=== PATIENT | female | born 1955 | race Caucasian/White ===

== ENCOUNTER → 2018-04-22 | Outpatient (CLI) | payer OTHER ==
[~2018-04-22] MED LIST: BISO1TAB6 PO; ENAL10TA PO; FISH1CAP15 PO; GLIM2TAB PO; METF-380 PO; SERT50TA PO; SIMV20TA3 PO
--- NOTE | 2018-04-22 16:55 | Diagnostic Imaging Report ---
PROCEDURE: US carotid duplex, bilateral. TECHNIQUE: Multiple real-time grayscale images were obtained over the carotid arteries in various projections, bilaterally. Additional spectral analysis and color Doppler duplex images were also obtained. INDICATION: Dizziness and carotid bruit. FINDINGS: There is mild plaquing at the carotid bifurcations bilaterally. Velocities are normal bilaterally. No velocity elevation or stenosis is seen. Both vertebral arteries demonstrate antegrade flow. IMPRESSION: Mild bilateral carotid plaque. There is no evidence of a hemodynamically significant stenosis. Parameters based on the consensus panel Castro-Scale and Doppler ultrasound criteria published March 2003, Radiology, Volume 229. DOPPLER (peak systolic velocity M/S Right Left CCA .70 .82 ICA Proximal .67 .55 ICA Mid .70 .93 ICA Distal .67 1.20 RATIO 1.0 1.5 ECA 1.00 1.09 VERT .56 1.13 Dictated by: Dictated on workstation # [id number]
== END ==
LOC: RAD 15:28
PROVIDERS: ATTEND Nurse Practitioner Family
DX: H81.09 Meniere's disease, unspecified ear (principal); I65.23 Occlusion and stenosis of bilateral carotid arteries
CPT/HCPCS: 93880

== ENCOUNTER → 2018-10-24 | Outpatient (CLI) | payer OTHER ==
[2018-10-24 15:03] LABS: BASOPHILS # (AUTO) 0.1 10^3/uL (0.0-0.1); BASOPHILS % (AUTO) 1 % (0-10); EOSINOPHILS # (AUTO) 0.4 10^3/uL (0.0-0.3); EOSINOPHILS % (AUTO) 5 % (0-10); HEMATOCRIT 36 % (35-52); HEMOGLOBIN 12.6 G/DL (11.5-16.0); LYMPHOCYTES # (AUTO) 1.9 X 10^3 (1.0-4.0); LYMPHOCYTES % (AUTO) 28 % (12-44); MEAN CORPUSCULAR HEMOGLOBIN 29 PG (25-34); MEAN CORPUSCULAR HGB CONC 35 G/DL (32-36); MEAN CORPUSCULAR VOLUME 82 FL (80-99); MONOCYTES # (AUTO) 0.3 X 10^3 (0.0-1.0); MONOCYTES % (AUTO) 5 % (0-12); NEUTROPHILS # (AUTO) 4.3 X 10^3 (1.8-7.8); NEUTROPHILS % (AUTO) 62 % (42-75); PLATELET COUNT 283 10^3/uL (130-400); RED CELL DISTRIBUTION WIDTH 12.9 % (10.0-14.5); WHITE BLOOD COUNT 6.9 10^3/uL (4.3-11.0)
[2018-10-24 15:19] LABS: ALBUMIN 4.4 GM/DL (3.2-4.5); BILIRUBIN,TOTAL 0.3 MG/DL (0.1-1.0); CALCIUM 9.8 MG/DL (8.5-10.1); CREATININE SERUM 1.07 MG/DL (0.60-1.30); POTASSIUM 4.1 MMOL/L (3.6-5.0); TOTAL PROTEIN 7.3 GM/DL (6.4-8.2)
== END ==
LOC: LAB 14:49
PROVIDERS: ATTEND Surgery
DX: E11.621 Type 2 diabetes mellitus with foot ulcer (principal); E11.42 Type 2 diabetes mellitus with diabetic polyneuropathy; L97.512 Non-pressure chronic ulcer of other part of right foot with fat layer exposed; E11.65 Type 2 diabetes mellitus with hyperglycemia; E78.5 Hyperlipidemia, unspecified; L03.115 Cellulitis of right lower limb
CPT/HCPCS: 36415; 80053; 85025

== ENCOUNTER → 2018-10-24 | Outpatient (CLI) | payer OTHER | LOC: WOUNDCARE 13:16 | PROVIDERS: ATTEND Surgery | DX: E11.621 Type 2 diabetes mellitus with foot ulcer (principal); E11.42 Type 2 diabetes mellitus with diabetic polyneuropathy; E11.65 Type 2 diabetes mellitus with hyperglycemia; E78.5 Hyperlipidemia, unspecified; L03.115 Cellulitis of right lower limb; L97.512 Non-pressure chronic ulcer of other part of right foot with fat layer exposed | CPT/HCPCS: 11042 ==

== ENCOUNTER → 2018-10-29 | Outpatient (CLI) | payer OTHER | LOC: WOUNDCARE 10:25 | PROVIDERS: ATTEND Surgery | DX: E11.621 Type 2 diabetes mellitus with foot ulcer (principal); E11.42 Type 2 diabetes mellitus with diabetic polyneuropathy; E11.65 Type 2 diabetes mellitus with hyperglycemia; E78.5 Hyperlipidemia, unspecified; L03.115 Cellulitis of right lower limb; L97.512 Non-pressure chronic ulcer of other part of right foot with fat layer exposed | CPT/HCPCS: 11042 ==

== ENCOUNTER → 2018-11-05 | Outpatient (CLI) | payer OTHER | LOC: WOUNDCARE 11:55 | PROVIDERS: ATTEND Surgery | DX: E11.621 Type 2 diabetes mellitus with foot ulcer (principal); L97.512 Non-pressure chronic ulcer of other part of right foot with fat layer exposed; E11.42 Type 2 diabetes mellitus with diabetic polyneuropathy; E11.65 Type 2 diabetes mellitus with hyperglycemia | CPT/HCPCS: 99212 ==

== ENCOUNTER 2020-08-29 14:45 | Inpatient (IN) | payer BC, OTHER ==
[~2020-08-29] VITALS: Ht 170.2 cm; Wt 104.6 kg
[2020-08-29] MEDS ORDERED: VANCOMYCIN INJECTION 0.1 MG in NS (IVPB) 250 ML IV SCH (15:00)
[2020-08-29] MEDS ORDERED: morphine INJ 4 MG/ML 1 ML (VIAL/SYRINGE) IVP PRN (15:00)
[2020-08-29] MEDS: NS IV 1000 ML 1,000 ML IV SCH (15:38)
[2020-08-29] MEDS: ENOXAPARIN 40 MG/0.4 ML (LOVENOX) SYR SC SCH (15:38)
[2020-08-29] MEDS ORDERED: CATHETER FLUSH 10 ML SYR IV PRN (15:45)
[2020-08-29 16:00] VITALS: BP 128/58
[2020-08-29 16:08] LABS: POTASSIUM 3.9 MMOL/L (3.6-5.0)
[2020-08-29 16:14] LABS: CREATININE SERUM 1.2 MG/DL (0.60-1.30)
[2020-08-29] MEDS ORDERED: VANCOMYCIN 1,750 MG/NS 500 ML IVPB IV NR ×2 (16:30)
[2020-08-29] MEDS: cefTRIAXone FOR IV USE 2,000 MG in WATER (STERILE) FOR INJECTION 20 ML IV SCH (17:07)
[2020-08-29] MEDS: ACETAMINOPHEN 500 MG TAB (TYLENOL) PO PRN (17:07)
[2020-08-29] MEDS: LACTOBACILLUS ACIDOPHILUS (PROBIOTIC) CAPSULE PO SCH (17:08)
[2020-08-29 17:29] LABS: BASOPHILS # (AUTO) 0.1 10^3/uL (0.0-0.1); BASOPHILS % (AUTO) 1 % (0-10); EOSINOPHILS # (AUTO) 0.2 10^3/uL (0.0-0.3); EOSINOPHILS % (AUTO) 2 % (0-10); HEMATOCRIT 33 % (35-52); HEMOGLOBIN 10.8 g/dL (11.5-16.0); LYMPHOCYTES # (AUTO) 0.9 10^3/uL (1.0-4.0); LYMPHOCYTES % (AUTO) 8 % (12-44); MEAN CORPUSCULAR HEMOGLOBIN 28 pg (25-34); MEAN CORPUSCULAR HGB CONC 33 g/dL (32-36); MEAN CORPUSCULAR VOLUME 85 fL (80-99); MEAN PLATELET VOLUME 10.1 fL (9.0-12.2); MONOCYTES # (AUTO) 0.6 10^3/uL (0.0-1.0); MONOCYTES % (AUTO) 6 % (0-12); NEUTROPHILS # (AUTO) 9.4 10^3/uL (1.8-7.8); NEUTROPHILS % (AUTO) 83 % (42-75); PLATELET COUNT 295 10^3/uL (130-400); WHITE BLOOD COUNT 11.3 10^3/uL (4.3-11.0)
[2020-08-29 17:40] LABS: ALBUMIN 3.8 GM/DL (3.2-4.5); POTASSIUM 3.6 MMOL/L (3.6-5.0)
[2020-08-29 17:41] LABS: CALCIUM 9.6 MG/DL (8.5-10.1)
[2020-08-29 17:42] LABS: TOTAL PROTEIN 7.4 GM/DL (6.4-8.2)
[2020-08-29 17:44] LABS: BILIRUBIN,TOTAL 0.6 MG/DL (0.1-1.0)
[2020-08-29 17:46] LABS: CREATININE SERUM 1.11 MG/DL (0.60-1.30)
[2020-08-29] MEDS: inSUlin ASPART (NovoLOG) 1 UNIT/0.01 ML (CHARGE PER UNIT) SC SCH ×2 (18:17→21:19)
--- NOTE | 2020-08-29 18:40 | Diagnostic Imaging Report ---
INDICATION: Left foot pain AP, oblique, and lateral views of the left foot are obtained. There is no acute fracture. There is extensive soft tissue gas over the lateral portion of the foot, centered over the level of the 5th MTP joint. There is no definite bony erosion. There is plantar and posterior calcaneal spurring. There is degenerative change of the tarsometatarsal joints. IMPRESSION: Extensive soft tissue gas over the lateral portion of the foot centered near the 5th MTP joint. The findings are compatible with cellulitis. I do not see definite bony erosion, MRI may be helpful for further evaluation. There are underlying degenerative findings as above. Dictated by: Dictated on workstation # [id number]
--- NOTE | 2020-08-29 19:00 | Consultation - Surgery ---
History of Present Illness History of Present Illness Patient Consulted On(denisse/time) 08/29/20 18:53 Time Seen by Provider: 17:44 History of Present Illness Surgery asked to consult regarding Left foot ulcer. HPI per IM: PT IS A 65 Y/O FEMALE WHO IS A PATIENT IN MY MEDICAL PRACTICE. SHE WAS SEEN IN CLINIC TODAY FOR A "SORE FOOT" WHICH TURNED OUT TO BE A WOUND ON THE PLANTAR SURFACE OF HER LEFT FOOT THAT HAD "MOVED TO THE TOP" OVER A FEW HOURS. PER PATIENT REPORT, SHE HAD THE WOUND ON HER FOOT "FOR A WHILE" AND THIS MORNING SHE NOTICED A SORE SPOT ON THE TOP OF HER FOOT AND BY THE TIME SHE GOT TO CLINIC IT WAS A LARGE OOZING LESION ON THE TOP OF HER FOOT NEAR THE FIFTH TOE. SHE LATER ADMITTED THAT SHE ALSO HAD A WOUND ON THE TOE ON THE RIGHT FOOT. SHE HAD STOPPED TAKING A LOT OF HER MEDICATIONS SEVERAL MONTHS AGO BECAUSE OF MEDICATION COST AND NOT HAVING INSURANCE. SHE REPORTS A LOT OF FAMILIAL STRESS RECENTLY AND HAVING HEADACHES AND NOT FEELING WELL IN GENERAL. When I spoke to pt she is a 65 yo female sent by Dr. Hernandez to be admitted for new ulcer on Left foot. Pt states it has been there "a while" but supposedly today it came up from the bottom of the foot to the top. Rated the pain as 4-5 out of 10, worse when she walked on it. Allergies and Home Medications Allergies Coded Allergies: No Known Drug Allergies (Unverified , 01/25/12) Home Medications ALPRAZolam 0.25 Mg Tablet, 0.25 MG PO BID PRN for ANXIETY, (Reported) Acetaminophen 500 Mg Tablet, 500-1,000 MG PO Q6H PRN for PAIN-MILD (1-4), (Reported) Bisoprolol Fumarate/Hctz 1 Each Tablet, 1 EA PO DAILY, (Reported) Cetirizine HCl 10 Mg Tablet, 10 MG PO DAILY, (Reported) Enalapril Maleate 10 Mg Tablet, 10 MG PO BID, (Reported) Loratadine 10 Mg Tablet, 10 MG PO DAILY PRN for ALLERGY SYYMPTOMS, (Reported) Meclizine HCl 25 Mg Tablet, 25 MG PO Q8H PRN for DIZZINESS, (Reported) Patient Home Medication List Home Medication List Reviewed: Yes Past Wgzudot-Vzgydt-Vafbdg Hx Patient Social History Smoking Status: Former Smoker Alcohol Use?: Yes Substance type: Marijuana Have you traveled recently?: No Immunizations Up To Date Date of Influenza Vaccine: Feb 18, 2020 Seasonal Allergies Seasonal Allergies: No Surgeries History of Surgeries: Yes Surgeries: Gallbladder, Orthopedic Respiratory History of Respiratory Disorde: Yes Respiratory Disorders: Sleep Apnea Cardiovascular History of Cardiac Disorders: Yes Cardiac Disorders: High Cholesterol, Hypertension Neurological History of Neurological Disord: No Reproductive System : No Genitourinary History of Genitourinary Disor: No Gastrointestinal History of Gastrointestinal Di: Yes Gastrointestinal Disorders: Gall Bladder Disease Musculoskeletal History of Musculoskeletal Dis: No Endocrine History of Endocrine Disorders: Yes Endocrine Disorders: Diabetes, Insulin dep HEENT History of HEENT Disorders: No Loss of Vision: Denies Hearing Impairment: Denies Cancer History of Cancer: No Psychosocial History of Psychiatric Problem: Yes Behavioral Health Disorders: Anxiety, Depression Integumentary History of Skin or Integumenta: No Blood Transfusions History of Blood Disorders: No Family Medical History Significant Family History: Diabetes (denied DM in her parents), GI Disease (Father had Crohn's), Hypertension (both parents), Psychiatric Problems (Sister had Depression and commited suicide) Review of Systems-General Constitutional: No fever, No malaise, No weakness EENTM: No blurred vision, No double vision, No mouth pain, No mouth swelling, No epistaxis Respiratory: No cough, No dyspnea on exertion, No hemoptysis Cardiovascular: No chest pain, No edema, No palpitations Gastrointestinal: No abdominal pain, No nausea, No vomiting Genitourinary: No dysuria, No frequency, No hematuria Musculoskeletal: joint pain, joint swelling, muscle pain, muscle stiffness, muscle weakness Skin: see HPI; No change in color, No change in hair/nails Physical Exam-General Problems Physical Exam Vital Signs Vital Signs - First Documented 08/29/20 08/29/20 15:30 16:00 Temp 36.6 Pulse 70 Resp 18 B/P (MAP) 128/58 (81) Pulse Ox 97 O2 Delivery Room Air Capillary Refill : General Appearance: WD/WN, no apparent distress, obese Eyes: Bilateral Eye PERRL, Bilateral Eye EOMI HEENT: pharynx normal; No scleral icterus (R), No scleral icterus (L) Neck: non-tender, full range of motion, supple Respiratory: lungs clear, normal breath sounds, no respiratory distress, no accessory muscle use Cardiovascular: regular rate, rhythm, no murmur Gastrointestinal: normal bowel sounds, non tender, soft, no organomegaly, no pulsatile mass Back: no CVA tenderness, no vertebral tenderness Extremities: no calf tenderness, normal capillary refill, other (ulcer on top and bottom of left foot) Neurologic/Psychiatric: manager global II-XII nml as tested, alert, normal mood/affect, oriented x 3 Skin: normal color, warm/dry Lymphatic: no adenopathy (neck, axilla or groin) Data Review Labs Laboratory Tests 08/29/20 15:34: Sodium Level 131L, Potassium Level 3.9, Chloride Level 94L, Carbon Dioxide Level 19L, Anion Gap 18H, Blood Urea Nitrogen 17, Creatinine 1.20, Estimat Glomerular Filtration Rate 45, BUN/Creatinine Ratio 14, Glucose Level 371H, Calcium Level 10.0 08/29/20 17:09: Sodium Level 130L, Potassium Level 3.6, Chloride Level 95L, Carbon Dioxide Level 19L, Anion Gap 16H, Blood Urea Nitrogen 18, Creatinine 1.11, Estimat Glomerular Filtration Rate 50, BUN/Creatinine Ratio 16, Glucose Level 356H, Calcium Level 9.6, White Blood Count 11.3H, Red Blood Count 3.90, Hemoglobin 10.8L, Hematocrit 33L, Mean Corpuscular Volume 85, Mean Corpuscular Hemoglobin 28, Mean Corpuscular Hemoglobin Concent 33, Red Cell Distribution Width 13.0, Platelet Count 295, Mean Platelet Volume 10.1, Immature Granulocyte % (Auto) 1, Neutrophils (%) (Auto) 83H, Lymphocytes (%) (Auto) 8L, Monocytes (%) (Auto) 6, Eosinophils (%) (Auto) 2, Basophils (%) (Auto) 1, Neutrophils # (Auto) 9.4H, Lymphocytes # (Auto) 0.9L, Monocytes # (Auto) 0.6, Eosinophils # (Auto) 0.2, Bas ophils # (Auto) 0.1, Immature Granulocyte # (Auto) 0.1, Corrected Calcium 9.8, Total Bilirubin 0.6, Aspartate Amino Transf (AST/SGOT) 7, Alanine Aminotransferase (ALT/SGPT) 9, Alkaline Phosphatase 103, Total Protein 7.4, Albumin 3.8 Radiology Date of Exam:08/29/20 FOOT, LEFT, 3 VIEWS INDICATION: Left foot pain AP, oblique, and lateral views of the left foot are obtained. There is no acute fracture. There is extensive soft tissue gas over the lateral portion of the foot, centered over the level of the 5th MTP joint. There is no definite bony erosion. There is plantar and posterior calcaneal spurring. There is degenerative change of the tarsometatarsal joints. IMPRESSION: Extensive soft tissue gas over the lateral portion of the foot centered near the 5th MTP joint. The findings are compatible with cellulitis. I do not see definite bony erosion, MRI may be helpful for further evaluation. There are underlying degenerative findings as above. Dictated on workstation # [id number] Dict: 08/29/20 1819 Trans: 08/29/20 1838 [facility] [id number] Interpreted by: CRISTOBAL EVERETT MD Assessment/Plan Assessment/Plan Assessment/Plan Left Foot Ulcer r/o Osteomyelitis Anemia Hyponatremia Plan local wound care, await bone scan and may need MRI. I talked with pt about possible IV ABX for 6-8 weeks if she has Osteomyelitis vs. possible need for Amputation. Will replace electrolytes and monitor labs. LAKISHA LLAMAS DO Aug 29, 2020 19:00
[2020-08-29] MEDS ORDERED: PATIENT MAY USE OWN MEDS, ALL MC SCH (19:30)
[2020-08-29 20:03] VITALS: BP 124/58
--- NOTE | 2020-08-29 20:41 | History & Physical ---
History of Present Illness History of Present Illness Reason for visit/HPI PT IS A 65 Y/O FEMALE WHO IS A PATIENT IN MY MEDICAL PRACTICE. SHE WAS SEEN IN CLINIC TODAY FOR A "SORE FOOT" WHICH TURNED OUT TO BE A WOUND ON THE PLANTAR SURFACE OF HER LEFT FOOT THAT HAD "MOVED TO THE TOP" OVER A FEW HOURS. PER PATIENT REPORT, SHE HAD THE WOUND ON HER FOOT "FOR A WHILE" AND THIS MORNING SHE NOTICED A SORE SPOT ON THE TOP OF HER FOOT AND BY THE TIME SHE GOT TO CLINIC IT WAS A LARGE OOZING LESION ON THE TOP OF HER FOOT NEAR THE FIFTH TOE. SHE LATER ADMITTED THAT SHE ALSO HAD A WOUND ON THE TOE ON THE RIGHT FOOT. SHE HAD STOPPED TAKING A LOT OF HER MEDICATIONS SEVERAL MONTHS AGO BECAUSE OF MEDICATION COST AND NOT HAVING INSURANCE. SHE REPORTS A LOT OF FAMILIAL STRESS RECENTLY AND HAVING HEADACHES AND NOT FEELING WELL IN GENERAL. Date of Admission Aug 29, 2020 at 14:45 Date Seen by a Provider: Aug 29, 2020 Time Seen by a Provider: 14:00 Attending Physician Valerie Hernandez MD Admitting Physician Valerie Hernandez MD Consult DR. LLAMAS - GENERAL SURGERY Allergies and Home Medications Allergies Coded Allergies: No Known Drug Allergies (Unverified , 01/25/12) Home Medications Bisoprol/Hydrochlorothiazide 1 Each Tablet, 1 EACH PO DAILY, (Reported) Fish Oil/Dha/Epa 1 Each Capsule, 1 EACH PO BID, (Reported) Glimepiride 2 Mg Tablet, 2 MG PO BID, (Reported) Metformin Hcl 1,000 Mg Tablet, 1 EACH PO BID WITH MEALS, (Reported) Sertraline Hcl 50 Mg Tablet, 50 MG PO DAILY, (Reported) Simvastatin 20 Mg Tablet, 25 MG PO DAILY, (Reported) Patient Home Medication List Home Medication List Reviewed: Yes Past Rqujocf-Kbuwlr-Jflufb Hx Past Med/Social Hx: Reviewed Nursing Past Med/Soc Hx, Reviewed and Corrections made Patient Social History Marrital Status: Living Status: LIVES AT HOME WITH SPOUSE Employed/Student: unemployed Alcohol Use: Rarely Uses Recreational Drug Use: Yes (MARIJUANA) Smoking Status: Former Smoker 2nd Hand Smoke Exposure: No Physical Abuse Screen: No Sexual Abuse: No Recent Foreign Travel: No Contact w/other who traveled: No Recent Hopitalizations: No Recent Infectious Disease Expo: No Immunizations Up To Date Date of Influenza Vaccine: Feb 18, 2020 Seasonal Allergies Seasonal Allergies: No Past Medical History Surgeries: Gallbladder, Orthopedic (PLANTAR FASCIA RELEASE) Respiratory: Sleep Apnea Currently Using CPAP: Yes Currently Using BIPAP: No Cardiac: High Cholesterol, Hypertension : No Reproductive: No Sexually Transmitted Disease: No HIV/AIDS: No Menopausal Endocrine: Diabetes, Non-Insulin dep Are Your Blood Sugars Over 250: Yes Loss of Vision: Denies Hearing Impairment: Denies Psychosocial: Anxiety, Depression WOUND ON RIGHT TOE, WOUND ON BOTTOM OF LEFT FOOT History of Blood Disorders: No Adverse Reaction to Blood Galvez: No Family History Reviewed and Corrections made Heart Disease (MOTHER HAD CAD), Diabetes (denied DM in her parents), GI Disease (FATHER HAD CROHNS), Hypertension (both parents), Psychiatric Problems (Sister had Depression and commited suicide) Review of Systems Constitutional: No chills, No diaphoresis, No dizziness, No fever; malaise, weakness; No other EENTM: no symptoms reported, ear pain, nose pain; No blurred vision, No vision loss Respiratory: no symptoms reported; No cough, No dyspnea on exertion, No short of breath Cardiovascular: no symptoms reported; No chest pain, No edema, No palpitations, No syncope Gastrointestinal: LUQ; No no symptoms reported, No abdominal pain, No constipation, No diarrhea, No loss of appetite Genitourinary: no symptoms reported Musculoskeletal: no symptoms reported; No back pain, No joint pain, No joint swelling, No muscle pain, No muscle stiffness, No muscle cramps Skin: other (ULCERATION ON BOTTOM OF LEFT FOOT AND TOP OF FOOT AND ULCER ON BOTTOM OF RIGHT GREAT TOE) Psychiatric/Neurological: Anxiety, Depressed All Other Systems Reviewed Negative Unless Noted: Yes Physical Exam Vital Signs Vital Signs - First Documented 08/29/20 08/29/20 15:30 16:00 Temp 36.6 Pulse 70 Resp 18 B/P (MAP) 128/58 (81) Pulse Ox 97 O2 Delivery Room Air Capillary Refill : Height, Weight, BMI Height: '" Weight: lbs. oz. kg; 34.90 BMI Method: General Appearance: No Apparent Distress (SOMEWHAT TEARFUL IN CLINIC), WD/WN Eyes: Bilateral Eye Normal Inspection, Bilateral Eye PERRL, Bilateral Eye EOMI HEENT: PERRL/EOMI, Pharynx Normal Neck: Full Range of Motion, Normal Inspection, Non Tender, Supple Respiratory: Chest Non Tender, Lungs Clear, Normal Breath Sounds, No Accessory Muscle Use, No Respiratory Distress Cardiovascular: Regular Rate, Rhythm, Other (TRACE EDEMA BILATERAL LOWER LEGS) Gastrointestinal: Normal Bowel Sounds, No Organomegaly, No Pulsatile Mass, Non Tender, Soft Rectal: Deferred Back: Normal Inspection, No CVA Tenderness, No Vertebral Tenderness Extremity: Normal Capillary Refill (ON RIGHT), Normal Range of Motion, Non Tender, No Calf Tenderness, Pedal Edema (ON LEFT WITH ERYTHEMA ON DORSUM OF FOOT TO ANKLE ON LEFT) Neurologic/Psychiatric: Alert, Oriented x3, No Motor/Sensory Deficits, Normal Mood/Affect, liner replacer II-XII Norm as Tested Skin: Erythema (ULCERATION ON DORSUM OF LEFT FOOT ABOUT 3CM IN LENGTH ABOVE 5TH METATARSAL, WITH ULCERATED LESION ON PLANTAR SURFACE OF LEFT FOOT AT 5TH METATARSAL HEAD, ULCER AT PLANTAR SURFACE OF GREAT TOE ON T HE RIGHT, NO ERYTHEMA NOTED) Comments PT SEEN IN CLINIC AND THEN AFTER CLINIC AROUND 1830 - THE ERYTHEMA HAD SPREAD FR OM THE DORSUM OF HER FOOT ENDING AT THE ANKLE UP ON THE ANTERIOR SURFACE OF HER LOWER LEG ON THE LEFT SIDE UP TO MID TIBIA, AREA OF ERYTHEMA WAS MARKED WITH BLACK MARKER. Assessment/Plan Assessment and Plan DIABETIC FOOT ULCER LEFT FOOT CELLULITIS LEFT FOOT HYPONATREMIA ULCERATION RIGHT TOE UNCONTROLLED DIABETES MELLITUS HYPERTENSION HYPERLIPIDEMIA DEPRESSION ANEMIA MEDICATION NONCOMPLIANCE DUE TO FINANCIAL HARDSHIP DIABETIC FOOT ULCER LEFT FOOT WITH CELLULITIS LEFT FOOT - IMAGING REPORT FOLLOWS: XRAY LEFT FOOT - Extensive soft tissue gas over the lateral portion of the foot centered near the 5th MTP joint. The findings are compatible with cellulitis. I do not see definite bony erosion, MRI may be helpful for further evaluation. There are underlying degenerative findings as above. - SUSPECT GAS GANGRENE - PT INITIATED ON IV VANCOMYCIN WELL IV ROCEPHIN, WILL MONITOR CULTURE REPORT OF WOUND WELL BLOOD CULTURE REPORT. HYPONATREMIA - DUE TO DM AND ACUTE ILLNESS - MONITOR LABS - IV FLUIDS WITH NORMAL SALINE. ULCERATION RIGHT TOE - DRESSING TO TOE, MONITOR FOR FURTHER SYMPTOMS OF CELLULITIS OF THE GREAT TOE, WILL ORDER PLAIN FILMS OF FOOT ON RIGHT TONIGHT. UNCONTROLLED DIABETES MELLITUS - HOLD GLIPIZIDE AND METFORMIN - START ON LEVEMIR IN HOSPITAL WELL SLIDING SCALE B - CHECK HGBA1C HYPERTENSION - START VALSARTAN AND BETA QUYNH, MONITOR PRESSURES. HYPERLIPIDEMIA - CHECK LIPID LEVEL IN MORNING WITH FASTING LABS. DEPRESSION - MULTI FACTORIAL - DTR IN HOSPITAL WITH COVID, FINANCIAL STRESS, ETC, WILL RESUME SSRI. ANEMIA - ANEMIA OF CHRONIC DISEASE, MONITOR LABS WITH HYDRATION. MEDICATION NONCOMPLIANCE DUE TO FINANCIAL HARDSHIP - WILL SEE IF EXCELSIOR MACHINE FEEDER CAN HELP ON DC. CONSULT TO SURGEON, BONE SCAN IN MORNING, DVT PROPHYLAXIS WITH LOVENOX AND SCDS, GI PROPHYLAXIS WITH PPI AND PROBIOTICS. Admission Diagnosis DIABETIC FOOT ULCER LEFT FOOT CELLULITIS LEFT FOOT HYPONATREMIA ULCERATION RIGHT TOE UNCONTROLLED DIABETES MELLITUS HYPERTENSION HYPERLIPIDEMIA DEPRESSION ANEMIA MEDICATION NONCOMPLIANCE DUE TO FINANCIAL HARDSHIP Admission Status: Inpatient Order (span 2 midnights) Reason for Inpatient Admission: INPT ADMISSION FOR CELLULITIS AND OPEN WOUND ON FOOT, WITH DX OF DM - PT WILL REQUIRE AT LEAST 72 HOURS IN THE HOSPITAL FOR STABILIZATION AND POSSIBLE SURGICAL INTERVENTION VALERIE HERNANDEZ MD Aug 29, 2020 20:41
[2020-08-29] MEDS ORDERED: SERTRALINE 50 MG (ZOLOFT) TABLET ONE (21:06)
[2020-08-29] MEDS: SERTRALINE 50 MG (ZOLOFT) TABLET PO SCH (21:19)
--- NOTE | 2020-08-29 21:42 | Diagnostic Imaging Report ---
INDICATION: Right great toe ulcer AP, oblique and lateral views of the right foot are obtained. No fracture or malalignment is identified. There is swelling involving the great toe however no underlying fracture, malalignment or bone destruction is identified. There is no radiopaque foreign body. IMPRESSION: Chronic findings without acute osseous abnormality detected. There may be cellulitis at the level of the great toe. Dictated by: Dictated on workstation # [id number]
[2020-08-30] VITALS (7 sets, daily range): BP systolic 129–164; BP diastolic 62–71
[2020-08-30] MEDS: ACETAMINOPHEN 500 MG TAB (TYLENOL) PO PRN ×3 (00:24→18:39)
[2020-08-30] MEDS: VANCOMYCIN 1250 MG/NS 250 ML IVPB IV SCH ×4 (05:01→16:08)
[2020-08-30 05:56] LABS: HEMOGLOBIN 10.5 g/dL (11.5-16.0); MEAN PLATELET VOLUME 10.4 fL (9.0-12.2); WHITE BLOOD COUNT 12.5 10^3/uL (4.3-11.0)
[2020-08-30] MEDS: inSUlin ASPART (NovoLOG) 1 UNIT/0.01 ML (CHARGE PER UNIT) SC SCH ×4 (06:01→20:43)
[2020-08-30 06:11] LABS: ALBUMIN 3.4 GM/DL (3.2-4.5); CHLORIDE 97 MMOL/L (98-107); POTASSIUM 3.4 MMOL/L (3.6-5.0); SODIUM 133 MMOL/L (135-145)
[2020-08-30 06:12] LABS: CALCIUM 9.3 MG/DL (8.5-10.1)
[2020-08-30 06:13] LABS: TRIGLYCERIDES 293 MG/DL (<150); VLDL CHOLESTEROL 59 MG/DL (5-40)
[2020-08-30 06:14] LABS: GLUCOSE 282 MG/DL (70-105); TOTAL PROTEIN 7.2 GM/DL (6.4-8.2)
[2020-08-30 06:15] LABS: CARBON DIOXIDE 19 MMOL/L (21-32)
[2020-08-30 06:16] LABS: BILIRUBIN,TOTAL 0.3 MG/DL (0.1-1.0)
[2020-08-30 06:17] LABS: ALKALINE PHOSPHATASE 101 U/L (40-136); CREATININE SERUM 0.83 MG/DL (0.60-1.30); GFR ESTIMATED > 60
[2020-08-30 06:18] LABS: CHOLESTEROL 148 MG/DL (< 200)
[2020-08-30 06:19] LABS: BUN/CREATININE RATIO 19
[2020-08-30 06:20] LABS: HDL CHOLESTEROL 23 MG/DL (40-60)
[2020-08-30 06:21] LABS: ALANINE AMINOTRANSFERASE 8 U/L (0-55)
[2020-08-30] MEDS: NS IV 1000 ML 1,000 ML IV SCH ×2 (07:34→08:00)
--- NOTE | 2020-08-30 08:27 | Progress Note ---
Subjective Subjective Date Seen by Provider: Aug 30, 2020 Time Seen by Provider: 08:[address]CHAIR ON WAY TO BONE SCAN, SHE REPORTS THAT HER FOOT IS SHOWING MORE FEELING THAT IT HAD IN THE PAST. SHE REPORTS THAT TODAY SHE NOTICED PAIN WITH MOVEMENT AND PRESSURE ON THE LEFT FOOT. SHE NOTES THAT HER REDNESS HAS IMPROVED WELL. Review of Systems General: No Chills, No Fatigue, No Malaise HEENT: No Head Aches Pulmonary: No Dyspnea, No Cough Cardiovascular: No: Chest Pain, Palpitations Gastrointestinal: No: Nausea, Abdominal Pain Genitourinary: No Dysuria Musculoskeletal: leg pain, foot pain (LEFT) Neurological: Weakness; No: Confusion All Other Systems Reviewed All Other Systems Reviewed: Yes Objective Exam Vital Signs Vital Signs - First Documented 08/29/20 08/29/20 15:30 16:00 Temp 36.6 Pulse 70 Resp 18 B/P (MAP) 128/58 (81) Pulse Ox 97 O2 Delivery Room Air Capillary Refill : General Appearance: No Apparent Distress, WD/WN Eyes: Bilateral Eye Normal Inspection, Bilateral Eye PERRL, Bilateral Eye EOMI HEENT: PERRL/EOMI, Pharynx Normal Respiratory: Chest Non Tender, Lungs Clear, Normal Breath Sounds, No Accessory Muscle Use, No Respiratory Distress Cardiovascular: Regular Rate, Rhythm, Other (TRACE EDEMA BILATERAL LOWER LEGS) Gastrointestinal: Soft Rectal: Deferred Back: No Vertebral Tenderness Extremity: Normal Range of Motion, Pedal Edema (IMPROVED ERYTHEMA ON LEFT - NO LONGER AT EDGES OF MARKED ) Neurologic/Psychiatric: Alert, Oriented x3, No Motor/Sensory Deficits, Normal Mood/Affect, 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 Skin: Erythema, Other (LEFT FOOT DRESSED WITH KERLEX AND RIGHT GREAT TOE DRESSED WITH KERLEX) Results Lab Laboratory Tests 08/29/20 15:34: Sodium Level 131L, Potassium Level 3.9, Chloride Level 94L, Carbon Dioxide Level 19L, Anion Gap 18H, Blood Urea Nitrogen 17, Creatinine 1.20, Estimat Glomerular Filtration Rate 45, BUN/Creatinine Ratio 14, Glucose Level 371H, Calcium Level 10.0 08/29/20 17:09: Sodium Level 130L, Potassium Level 3.6, Chloride Level 95L, Carbon Dioxide Level 19L, Anion Gap 16H, Blood Urea Nitrogen 18, Creatinine 1.11, Estimat Glomerular Filtration Rate 50, BUN/Creatinine Ratio 16, Glucose Level 356H, Calcium Level 9.6, White Blood Count 11.3H, Red Blood Count 3.90, Hemoglobin 10.8L, Hematocrit 33L, Mean Corpuscular Volume 85, Mean Corpuscular Hemoglobin 28, Mean Corpuscular Hemoglobin Concent 33, Red Cell Distribution Width 13.0, Platelet Count 295, Mean Platelet Volume 10.1, Immature Granulocyte % (Auto) 1, Neutrophils (%) (Auto) 83H, Lymphocytes (%) (Auto) 8L, Monocytes (%) (Auto) 6, Eosinophils (%) (Auto) 2, Basophils (%) (Auto) 1, Neutrophils # (Auto) 9.4H, Lymphocytes # (Auto) 0.9L, Monocytes # (Auto) 0.6, Eosinophils # (Auto) 0.2, Basophils # (Auto) 0.1, Immature Granulocyte # (Auto) 0.1, Erythrocyte Sedimentation Rate 121H, Corrected Calcium 9.8, Total Bilirubin 0.6, Aspartate Amino Transf (AST/SGOT) 7, Alanine Aminotransferase (ALT/SGPT) 9, Alkaline Phos phatase 103, C-Reactive Protein High Sensitivity 52.27H, Total Protein 7.4, Albumin 3.8 08/29/20 20:17: Glucometer 294H 08/30/20 00:18: Glucometer 240H 08/30/20 05:18: Glucometer 264H 08/30/20 05:19: White Blood Count 12.5H, Red Blood Count 3.89, Hemoglobin 10.5L, Hematocrit 33L, Mean Corpuscular Volume 84, Mean Corpuscular Hemoglobin 27, Mean Corpuscular Hemoglobin Concent 32, Red Cell Distribution Width 13.1, Platelet Count 324, Mean Platelet Volume 10.4, Sodium Level 133L, Potassium Level 3.4L, Chloride Level 97L, Carbon Dioxide Level 19L, Anion Gap 17H, Blood Urea Nitrogen 16, Creatinine 0.83, Estimat Glomerular Filtration Rate > 60, BUN/Creatinine Ratio 19, Glucose Level 282H, Calcium Level 9.3, Corrected Calcium 9.8, Total Bilirubin 0.3, Aspartate Amino Transf (AST/SGOT) 6, Alanine Aminotransferase ( ALT/SGPT) 8, Alkaline Phosphatase 101, Total Protein 7.2, Albumin 3.4, Triglycerides Level 293H, Cholesterol Level 148, LDL Cholesterol Direct 60, VLDL Cholesterol 59H, HDL Cholesterol 23L Assessment/Plan Assessment/Plan Admission Dx DIABETIC FOOT ULCER LEFT FOOT CELLULITIS LEFT FOOT HYPONATREMIA ULCERATION RIGHT TOE UNCONTROLLED DIABETES MELLITUS HYPERTENSION HYPERLIPIDEMIA DEPRESSION ANEMIA MEDICATION NONCOMPLIANCE DUE TO FINANCIAL HARDSHIP Assessment and Plan DIABETIC FOOT ULCER LEFT FOOT CELLULITIS LEFT FOOT HYPONATREMIA ULCERATION RIGHT TOE UNCONTROLLED DIABETES MELLITUS HYPERTENSION HYPERLIPIDEMIA DEPRESSION ANEMIA MEDICATION NONCOMPLIANCE DUE TO FINANCIAL HARDSHIP DIABETIC FOOT ULCER LEFT FOOT WITH CELLULITIS LEFT FOOT - IMAGING REPORT FOLLOWS: XRAY LEFT FOOT - Extensive soft tissue gas over the lateral portion of the foot centered near the 5th MTP joint. The findings are compatible with cellulitis. I do not see definite bony erosion, MRI may be helpful for further evaluation. There are underlying degenerative findings as above. - SUSPECT GAS GANGRENE - PT INITIATED ON IV VANCOMYCIN WELL IV ROCEPHIN, WILL MONITOR CULTURE REPORT OF WOUND WELL BLOOD CULTURE REPORT. - see below for bone scan report BONE SCAN 3 PHASE INDICATION: Left foot diabetic ulcer. FINDINGS: There appears to be asymmetric increased blood flow to the left foot on the blood flow images. There is also some generalized soft tissue uptake on the blood pool images. There is some blood pool activity in the right great toe as well in addition to some increased blood flow to the right great toe. Delayed images just show some generalized uptake in the mid feet bilaterally which may be degenerative. No focus of tracer accumulation is seen to suggest a potential site of osteomyelitis. IMPRESSION: There is increased blood flow and blood pool activity in the region of the right great toe and throughout the left foot, likely owing to cellulitis. No definite three-phase abnormality is seen to suggest osteomyelitis. Dictated on workstation # [id number] Dict: 08/30/20 1610 Trans: 08/30/20 1625 [id number] HYPONATREMIA - DUE TO DM AND ACUTE ILLNESS - MONITOR LABS - IV FLUIDS WITH NORMAL SALINE. - SODIUM LEVELS IMPROVED ULCERATION RIGHT TOE - DRESSING TO TOE, MONITOR FOR FURTHER SYMPTOMS OF CELLULITIS OF THE GREAT TOE - BONE SCAN DID NOT REVEAL OSTEOMYELITIS UNCONTROLLED DIABETES MELLITUS - HOLD GLIPIZIDE AND METFORMIN - START ON LEVEMIR IN HOSPITAL WELL SLIDING SCALE B - DOSE OF LEVEMIR INCREASED FROM 10 TO 15 UNITS TONIGHT - CHECK HGBA1C HYPERTENSION - START VALSARTAN AND BETA QUYNH, MONITOR PRESSURES. HYPERLIPIDEMIA - START LIPITOR 20MG DAILY DEPRESSION - MULTI FACTORIAL - DTR IN HOSPITAL WITH COVID, FINANCIAL STRESS, ETC, WILL RESUME SSRI. ANEMIA - ANEMIA OF CHRONIC DISEASE, MONITOR LABS WITH HYDRATION. MEDICATION NONCOMPLIANCE DUE TO FINANCIAL HARDSHIP - WILL SEE IF CIRCULATION WORKER CAN HELP ON DC. CONSULT TO SURGEON, DVT PROPHYLAXIS WITH LOVENOX AND SCDS, GI PROPHYLAXIS WITH PPI AND PROBIOTICS. Admission Dx DIABETIC FOOT ULCER LEFT FOOT CELLULITIS LEFT FOOT HYPONATREMIA ULCERATION RIGHT TOE UNCONTROLLED DIABETES MELLITUS HYPERTENSION HYPERLIPIDEMIA DEPRESSION ANEMIA MEDICATION NONCOMPLIANCE DUE TO FINANCIAL HARDSHIP Clinical Quality Measures Admission Status Admission Dx DIABETIC FOOT ULCER LEFT FOOT CELLULITIS LEFT FOOT HYPONATREMIA ULCERATION RIGHT TOE UNCONTROLLED DIABETES MELLITUS HYPERTENSION HYPERLIPIDEMIA DEPRESSION ANEMIA MEDICATION NONCOMPLIANCE DUE TO FINANCIAL HARDSHIP VALERIE SCHULTE MD Aug 30, 2020 08:27
--- NOTE | 2020-08-30 08:39 | Progress Note - Surgery ---
VIN BRICE MED STUDENT 08/30/20 0839: Subjective Date Seen by a Provider: Aug 30, 2020 Time Seen by a Provider: 08:10 Subjective/Events-last exam Neha states she has not had much pain with her feet wounds. Denies chest pain, SOB, vomiting, fever, and chills. She states she has been under increased emotional stress the last 2 weeks due to her daughter being hospitalized in [place] for COVID and on CPAP, and her daughter's family having symptoms of COVID. Neha says she has received the vaccine and has not had any symptoms including cough, sinus congestion, diarrhea. Objective Exam Vital Signs Date Time Temp Pulse Resp B/P (MAP) Pulse Ox O2 Delivery O2 Flow Rate FiO2 08/30/20 07:12 36.2 77 18 129/62 (84) 95 Room Air 08/30/20 04:58 36.9 75 20 164/69 (100) 97 Room Air 08/30/20 00:18 37.2 89 16 144/65 (91) 98 Room Air 08/29/20 20:03 36.8 78 20 124/58 (80) 98 Room Air 08/29/20 20:00 99 Room Air 08/29/20 16:00 36.6 70 18 128/58 (81) 97 Room Air 08/29/20 15:30 97 Room Air I & O 08/30/20 06:59 Intake Total 1542.5 ml Balance 1542.5 ml Capillary Refill : General Appearance: No Apparent Distress (SOMEWHAT TEARFUL IN CLINIC), WD/WN HEENT: PERRL/EOMI, Pharynx Normal Neck: Full Range of Motion, Normal Inspection, Non Tender, Supple Respiratory: Chest Non Tender, Lungs Clear, Normal Breath Sounds, No Accessory Muscle Use, No Respiratory Distress Cardiovascular: Regular Rate, Rhythm, No Edema (on right; unable to assess left as foot and ankle are wrapped) Gastrointestinal: non tender, soft Extremity: Normal Range of Motion, Non Tender, No Calf Tenderness Neurologic/Psychiatric: Alert, Oriented x3, No Motor/Sensory Deficits, Normal Mood/Affect, shell sorter II-XII Norm as Tested Skin: Warm/Dry, Erythema (faint erythema extending up the LLE. Compared to outline from yesterday, erythema has receded several cm from the most superior parts of the outlline but does extend several cm beyond the inferolateral margin of the outline), Other (entire left foot wrapped. Right great toe wrapped. No pedal edema on right. PT pulse 1+ on the right.) Results Lab Laboratory Tests 08/29/20 15:34: Sodium Level 131L, Potassium Level 3.9, Chloride Level 94L, Carbon Dioxide Level 19L, Anion Gap 18H, Blood Urea Nitrogen 17, Creatinine 1.20, Estimat Glomerular Filtration Rate 45, BUN/Creatinine Ratio 14, Glucose Level 371H, Calcium Level 10.0 08/29/20 17:09: Sodium Level 130L, Potassium Level 3.6, Chloride Level 95L, Carbon Dioxide Level 19L, Anion Gap 16H, Blood Urea Nitrogen 18, Creatinine 1.11, Estimat Glomerular Filtration Rate 50, BUN/Creatinine Ratio 16, Glucose Level 356H, Calcium Level 9.6, White Blood Count 11.3H, Red Blood Count 3.90, Hemoglobin 10.8L, Hematocrit 33L, Mean Corpuscular Volume 85, Mean Corpuscular Hemoglobin 28, Mean Corpuscular Hemoglobin Concent 33, Red Cell Distribution Width 13.0, Platelet Count 295, Mean Platelet Volume 10.1, Immature Granulocyte % (Auto) 1, Neutrophils (%) (Auto) 83H, Lymphocytes (%) (Auto) 8L, Monocytes (%) (Auto) 6, Eosinophils (%) (Auto) 2, Basophils (%) (Auto) 1, Neutrophils # (Auto) 9.4H, Lymphocytes # (Auto) 0.9L, Monocytes # (Auto) 0.6, Eosinophils # (Auto) 0.2, Basophils # (Auto) 0.1, Immature Granulocyte # (Auto) 0.1, Erythrocyte Sedimentation Rate 121H, Corrected Calcium 9.8, Total Bilirubin 0.6, Aspartate Amino Transf (AST/SGOT) 7, Alanine Aminotransferase (ALT/SGPT) 9, Alkaline Phosphatase 103, C-Reactive Protein High Sensitivity 52.27H, Total Protein 7.4, Albumin 3.8 08/29/20 20:17: Glucometer 294H 08/30/20 00:18: Glucometer 240H 08/30/20 05:18: Glucometer 264H 08/30/20 05:19: White Blood Count 12.5H, Red Blood Count 3.89, Hemoglobin 10.5L, Hematocrit 33L, Mean Corpuscular Volume 84, Mean Corpuscular Hemoglobin 27, Mean Corpuscular Hemoglobin Concent 32, Red Cell Distribution Width 13.1, Platelet Count 324, Mean Platelet Volume 10.4, Sodium Level 133L, Potassium Level 3.4L, Chloride Level 97L, Carbon Dioxide Level 19L, Anion Gap 17H, Blood Urea Nitrogen 16, Creatinine 0.83, Estimat Glomerular Filtration Rate > 60, BUN/Creatinine Ratio 19, Glucose Level 282H, Calcium Level 9.3, Corrected Calcium 9.8, Total B ilirubin 0.3, Aspartate Amino Transf (AST/SGOT) 6, Alanine Aminotransferase (ALT/SGPT) 8, Alkaline Phosphatase 101, Total Protein 7.2, Albumin 3.4, Triglycerides Level 293H, Cholesterol Level 148, LDL Cholesterol Direct 60, VLDL Cholesterol 59H, HDL Cholesterol 23L Assessment/Plan Assessment/Plan Assessment/Plan Left Foot Ulcer Anemia Hyponatremia - improving. Continue IV NS MRI of left foot to confirm osteomyelitis continue wound care, IV antibiotics LAKISHA JULES DO 08/30/20 1553: Subjective Time Seen by a Provider: 12:43 Subjective/Events-last exam Pt seen and examined, states no changes since yesterday. Review of Systems General: No Chills, No Night Sweats Pulmonary: No Dyspnea, No Cough Cardiovascular: No: Chest Pain Gastrointestinal: No: Nausea, Vomiting, Abdominal Pain Objective Exam General Appearance: No Apparent Distress (SOMEWHAT TEARFUL IN CLINIC), WD/WN HEENT: PERRL/EOMI Respiratory: Chest Non Tender, Lungs Clear, Normal Breath Sounds, No Accessory Muscle Use, No Respiratory Distress Cardiovascular: Regular Rate, Rhythm, No Edema (on right; unable to assess left as foot and ankle are wrapped), No Murmur Gastrointestinal: non tender, soft, no organomegaly Skin: Erythema (faint erythema extending up the LLE. Compared to outline from yesterday, erythema has receded several cm from the most superior parts of the outlline but does extend several cm beyond the inferolateral margin of the outline), Other (entire left foot wrapped. Right great toe wrapped. No pedal jori ma on right. PT pulse 1+ on the right.) Assessment/Plan Assessment/Plan Assessment/Plan Left Foot Ulcer Anemia - stable Hyponatremia - improving. Continue IV NS MRI of left foot to confirm osteomyelitis continue wound care, IV antibiotics Supervisory-Addendum Brief Verification & Attestation Participated in pt care: history, MDM, physical Personally performed: exam, history, MDM Care discussed with: Medical Student Procedures: n/a Verification and Attestation of Medical Student E/M Service A medical student performed and documented this service. I then reviewed and verified all information documented by the medical student and made modifications to such information, when appropriate. I personally performed a physical exam, medical decision making and then discussed any differences between the notes and made revisions as necessary to create one note. Lakisha Jules , 08/30/20 , 15:53 VIN BRICE MED STUDENT Aug 30, 2020 08:39 LAKISHA JULES DO Aug 30, 2020 15:53
[2020-08-30] MEDS ORDERED: BISOPROLOL 5 MG TAB (ZEBETA) PO SCH (09:00)
[2020-08-30] MEDS ORDERED: HYDROCHLOROTHIAZIDE 25 MG (HCTZ) TAB PO SCH (09:00)
[2020-08-30] MEDS: PANTOPRAZOLE 40 MG (PROTONIX) TAB PO SCH (09:23)
[2020-08-30] MEDS: VALSARTAN 80 MG (DIOVAN) TAB PO SCH (09:23)
[2020-08-30] MEDS: LACTOBACILLUS ACIDOPHILUS (PROBIOTIC) CAPSULE PO SCH ×3 (09:23→16:10)
[2020-08-30] MEDS: BISOPROLOL 5 MG TAB (ZEBETA) PO SCH (09:33)
[2020-08-30] MEDS ORDERED: ENAL10TA16 PO (10:00)
[2020-08-30] MEDS ORDERED: ACET-2267 PO (10:00)
[2020-08-30] MEDS ORDERED: CETI10TA17 PO (10:00)
[2020-08-30] MEDS ORDERED: BISO-3 PO (10:00)
[2020-08-30] MEDS ORDERED: MECL-149 PO (10:04)
[2020-08-30] MEDS ORDERED: ALPR0.254 PO (10:04)
[2020-08-30] MEDS ORDERED: LORA10TA7 PO (10:04)
[2020-08-30] MEDS: ENOXAPARIN 40 MG/0.4 ML (LOVENOX) SYR SC SCH (16:09)
[2020-08-30] MEDS: cefTRIAXone FOR IV USE 2,000 MG in WATER (STERILE) FOR INJECTION 20 ML IV SCH (16:09)
--- NOTE | 2020-08-30 16:25 | Diagnostic Imaging Report ---
INDICATION: Left foot diabetic ulcer. TECHNIQUE: The patient was administered 26.8 mCi of technetium 99m MDP intravenously and dynamic blood flow, blood pool, and delayed imaging over the bilateral feet was performed. FINDINGS: There appears to be asymmetric increased blood flow to the left foot on the blood flow images. There is also some generalized soft tissue uptake on the blood pool images. There is some blood pool activity in the right great toe as well in addition to some increased blood flow to the right great toe. Delayed images just show some generalized uptake in the mid feet bilaterally which may be degenerative. No focus of tracer accumulation is seen to suggest a potential site of osteomyelitis. IMPRESSION: There is increased blood flow and blood pool activity in the region of the right great toe and throughout the left foot, likely owing to cellulitis. No definite three-phase abnormality is seen to suggest osteomyelitis. Dictated by: Dictated on workstation # [id number]
[2020-08-30] MEDS ORDERED: KCL 20 MEQ TAB (K-DUR) PO NR (18:30)
[2020-08-30] MEDS: ALPRAZolam 0.25 MG (XANAX) TAB PO PRN (20:12)
[2020-08-30] MEDS: SERTRALINE 50 MG (ZOLOFT) TABLET PO SCH (20:13)
[2020-08-30] MEDS: BETAMETHASONE DIPRO (AUGMENTED) 0.05% OINT 15 GM TOP SCH ×2 (20:44→22:00)
[2020-08-31] MEDS ORDERED: TROUGH ORDER-PHARMACY XX NR (04:00)
[2020-08-31 04:13] LABS: HEMOGLOBIN 9.7 g/dL (11.5-16.0); MEAN PLATELET VOLUME 9.9 fL (9.0-12.2); WHITE BLOOD COUNT 8.3 10^3/uL (4.3-11.0)
[2020-08-31 04:25] LABS: CHLORIDE 100 MMOL/L (98-107); SODIUM 134 MMOL/L (135-145)
[2020-08-31 04:26] LABS: CALCIUM 9.4 MG/DL (8.5-10.1)
[2020-08-31 04:27] LABS: GLUCOSE 310 MG/DL (70-105)
[2020-08-31 04:28] LABS: CARBON DIOXIDE 21 MMOL/L (21-32)
[2020-08-31 04:30] LABS: CREATININE SERUM 0.79 MG/DL (0.60-1.30); GFR ESTIMATED > 60
[2020-08-31 04:31] LABS: BUN/CREATININE RATIO 19
[2020-08-31 04:38] LABS: VANCOMYCIN,TROUGH 8.5 UG/ML (10.0-20.0)
[2020-08-31 04:59] VITALS: BP 146/67
[2020-08-31] MEDS: VANCOMYCIN 1250 MG/NS 250 ML IVPB IV SCH ×2 (05:10)
[2020-08-31] MEDS: inSUlin ASPART (NovoLOG) 1 UNIT/0.01 ML (CHARGE PER UNIT) SC SCH ×4 (05:10→21:15)
[2020-08-31] MEDS: NS IV 1000 ML 1,000 ML IV SCH ×2 (05:11→21:05)
--- NOTE | 2020-08-31 07:39 | Progress Note - Surgery ---
VIN BRICE MED STUDENT 08/31/20 0739: Subjective Date Seen by a Provider: Aug 31, 2020 Time Seen by a Provider: 07:20 Subjective/Events-last exam Neha states she has had increased leg pain due to increased sensation in her feet. She also reports mild "indigestion" similar to past acid reflux pain which was completely resolved with a few crackers yesterday. The patient denies SOB, new rash, fever, chills, chest pain. She says nausea is unchanged from baseline episodes (has meniere's disease). Objective Exam Vital Signs Date Time Temp Pulse Resp B/P (MAP) Pulse Ox O2 Delivery O2 Flow Rate FiO2 08/31/20 04:59 36.3 74 18 146/67 (93) 98 NIV CPAP 08/30/20 23:14 35.9 73 18 141/67 (91) 98 NIV CPAP 08/30/20 20:19 37.0 77 18 153/71 (98) 97 Room Air 08/30/20 20:07 36.7 08/30/20 20:00 Room Air 08/30/20 16:04 36.7 83 18 148/68 (94) 97 NIV CPAP 08/30/20 11:05 36.4 70 18 138/64 (88) 99 NIV CPAP 08/30/20 08:00 99 Room Air I & O 08/31/20 07:00 Intake Total 2050 ml Balance 2050 ml Capillary Refill : General Appearance: No Apparent Distress, WD/WN HEENT: PERRL/EOMI, Pharynx Normal Respiratory: Chest Non Tender, Lungs Clear, Normal Breath Sounds, No Accessory Muscle Use, No Respiratory Distress Cardiovascular: Regular Rate, Rhythm, Other (TRACE EDEMA BILATERAL LOWER LEGS) Gastrointestinal: non tender, soft, no organomegaly Extremity: Normal Range of Motion, Pedal Edema (nonpitting on left lower extremity. No RLE edema. ), Other (increased LLE warmth. 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 Skin: Normal Color, Warm/Dry, Erythema, Other (LEFT FOOT DRESSED WITH KERLEX AND RIGHT GREAT TOE DRESSED WITH KERLEX) Results Lab Laboratory Tests 08/30/20 11:09: Glucometer 282H 08/30/20 15:20: Glucometer 280H 08/30/20 20:24: Glucometer 357H 08/31/20 04:00: White Blood Count 8.3, Red Blood Count 3.47L, Hemoglobin 9.7L, Hematocrit 29L, Mean Corpuscular Volume 84, Mean Corpuscular Hemoglobin 28, Mean Corpuscular Hemoglobin Concent 33, Red Cell Distribution Width 13.2, Platelet Count 387, Mean Platelet Volume 9.9, Sodium Level 134L, Potassium Level 4.0, Chloride Level 100, Carbon Dioxide Level 21, Anion Gap 13, Blood Urea Nitrogen 15, Creatinine 0.79, Estimat Glomerular Filtration Rate > 60, BUN/Creatinine Ratio 19, Glucose Level 310H, Calcium Level 9.4, Vancomycin Level Trough 8.5L Microbiology 08/29/20 Blood Culture - Preliminary, Resulted No growth 08/29/20 Gram Stain - Final, Resulted 08/29/20 Wound Culture - Preliminary, Resulted Strep agalactiae Group B Staphylococcus aureus Mixed Bacterial Evelin Assessment/Plan Assessment/Plan Assessment/Plan left foot diabetic ulcer, edema, cellulitis right great toe ulceration Hyperglycemia, poorly controlled DM Bone scan of BL LE done yesterday without evidence of osteomyelitis. Continue to treat conservatively, continue antibiotics surgery not warranted at this time work on improving glycemic control mild anemia -continue to monitor hyponatremia -improving with NS, partially due to hyperglycemia Acid reflux -is on ppi prophylaxis -patient states occasionally present but pain is not significant LAKISHA JULES DO 08/31/20 1333: Subjective Time Seen by a Provider: 10:06 Subjective/Events-last exam Pt seen and examined, states her foot hurts. She ate breakfast this am. Review of Systems General: No Chills, No Night Sweats Cardiovascular: No: Chest Pain, Palpitations Gastrointestinal: No: Nausea, Vomiting Objective Exam General Appearance: No Apparent Distress, Obese HEENT: PERRL/EOMI, Pharynx Normal Respiratory: Chest Non Tender, Lungs Clear, Normal Breath Sounds, No Accessory Muscle Use, No Respiratory Distress Cardiovascular: Regular Rate, Rhythm, Other (TRACE EDEMA BILATERAL LOWER LEGS) Gastrointestinal: non tender, soft, no organomegaly Extremity: Pedal Edema (nonpitting on left lower extremity. No RLE edema. ), Other (Pt has large necrotic area on top of foot and small necrotic area on ball of foot at 5th digit) Neurologic/Psychiatric: Alert, Oriented x3 Assessment/Plan Assessment/Plan Assessment/Plan Left foot ulcer w/ edema and now necrotic tissue - pt ate today, will plan debridement tomorrow. Bone scan of BL LE done yesterday without evidence of osteomyelitis. Right great toe ulceration Hyperglycemia, poorly controlled DM Hyponatremia - -improving with NS, partially due to hyperglycemia Acid reflux -is on ppi prophylaxis Supervisory-Addendum Brief Verification & Attestation Participated in pt care: history, MDM, physical Personally performed: exam, history, MDM Care discussed with: Medical Student Procedures: n/a Verification and Attestation of Medical Student E/M Service A medical student performed and documented this service. I then reviewed and verified all information documented by the medical student and made modifications to such information, when appropriate. I personally performed a physical exam, medical decision making and then discussed any differences between the notes and made revisions as necessary to create one note. Lakisha Jules , 08/31/20 , 13:33 VIN BRICE MED STUDENT Aug 31, 2020 07:39 LAKISHA JULES DO Aug 31, 2020 13:33
[2020-08-31 08:02] VITALS: BP 149/69
[2020-08-31] MEDS: LORATADINE (CLARITIN) 10 MG TAB PO SCH (08:04)
[2020-08-31] MEDS: VALSARTAN 80 MG (DIOVAN) TAB PO SCH (08:04)
[2020-08-31] MEDS: BISOPROLOL 5 MG TAB (ZEBETA) PO SCH (08:04)
[2020-08-31] MEDS: PANTOPRAZOLE 40 MG (PROTONIX) TAB PO SCH (08:04)
[2020-08-31] MEDS: LACTOBACILLUS ACIDOPHILUS (PROBIOTIC) CAPSULE PO SCH ×3 (08:04→16:57)
[2020-08-31] MEDS: BETAMETHASONE DIPRO (AUGMENTED) 0.05% OINT 15 GM TOP SCH ×2 (08:06→21:04)
--- NOTE | 2020-08-31 08:06 | Progress Note ---
Subjective Subjective Date Seen by Provider: Aug 31, 2020 Time Seen by Provider: 07:50 Pt appears comfortable sitting up in bed. Bone scan yesterday showed no evidence of osteomyelitis. She says her attitude has been lifted since this news and is compliant with ongoing care plan. Erythema has steadily been decreasing from the previous marked areas up to her proximal tibia. Denies n/v, fever, chills, chest pain, sob. Review of Systems General: No Chills, No Fatigue, No Malaise HEENT: No Head Aches Pulmonary: No Dyspnea, No Cough Cardiovascular: No: Chest Pain, Palpitations Gastrointestinal: No: Nausea, Abdominal Pain Genitourinary: No Dysuria Musculoskeletal: leg pain, foot pain (LEFT) Neurological: Weakness; No: Confusion All Other Systems Reviewed All Other Systems Reviewed: Yes Objective Exam Vital Signs Vital Signs - First Documented 08/29/20 08/29/20 15:30 16:00 Temp 36.6 Pulse 70 Resp 18 B/P (MAP) 128/58 (81) Pulse Ox 97 O2 Delivery Room Air Capillary Refill : General Appearance: No Apparent Distress, WD/WN Eyes: Bilateral Eye Normal Inspection, Bilateral Eye PERRL, Bilateral Eye EOMI HEENT: PERRL/EOMI, Pharynx Normal Respiratory: Chest Non Tender, Lungs Clear, Normal Breath Sounds, No Accessory Muscle Use, No Respiratory Distress Cardiovascular: Regular Rate, Rhythm, Other (TRACE EDEMA BILATERAL LOWER LEGS) Gastrointestinal: Soft Rectal: Deferred Back: No Vertebral Tenderness Extremity: Normal Range of Motion, Pedal Edema (nonpitting on left lower extremity. No RLE edema. ), Other (increased LLE warmth. Erythema decreased significantly, is now scarcely visible and well within marked line from 2 days ago.) Neurologic/Psychiatric: Alert, Oriented x3, No Motor/Sensory Deficits, Normal Mood/Affect, lead consultant II-XII Norm as Tested Skin: Normal Color, Warm/Dry, Erythema, Other (LEFT FOOT DRESSED WITH KERLEX AND RIGHT GREAT TOE DRESSED WITH KERLEX) Results Lab Laboratory Tests 08/30/20 11:09: Glucometer 282H 08/30/20 15:20: Glucometer 280H 08/30/20 20:24: Glucometer 357H 08/31/20 04:00: White Blood Count 8.3, Red Blood Count 3.47L, Hemoglobin 9.7L, Hematocrit 29L, Mean Corpuscular Volume 84, Mean Corpuscular Hemoglobin 28, Mean Corpuscular Hemoglobin Concent 33, Red Cell Distribution Width 13.2, Platelet Count 387, Mean Platelet Volume 9.9, Sodium Level 134L, Potassium Level 4.0, Chloride Level 100, Carbon Dioxide Level 21, Anion Gap 13, Blood Urea Nitrogen 15, Creatinine 0.79, Estimat Glomerular Filtration Rate > 60, BUN/Creatinine Ratio 19, Glucose Level 310H, Calcium Level 9.4, Vancomycin Level Trough 8.5L Microbiology 08/29/20 Blood Culture - Preliminary, Resulted No growth 08/29/20 Gram Stain - Final, Resulted 08/29/20 Wound Culture - Preliminary, Resulted Strep agalactiae Group B Staphylococcus aureus Mixed Bacterial Evelin Assessment/Plan Assessment/Plan Assessment and Plan DIABETIC FOOT ULCER LEFT FOOT CELLULITIS LEFT FOOT HYPONATREMIA ULCERATION RIGHT TOE UNCONTROLLED DIABETES MELLITUS HYPERTENSION HYPERLIPIDEMIA DEPRESSION ANEMIA MEDICATION NONCOMPLIANCE DUE TO FINANCIAL HARDSHIP DIABETIC FOOT ULCER LEFT FOOT WITH CELLULITIS LEFT FOOT - IMAGING REPORT FOLLOWS: XRAY LEFT FOOT - Extensive soft tissue gas over the lateral portion of the foot centered near the 5th MTP joint. The findings are compatible with cellulitis. I do not see definite bony erosion, MRI may be helpful for further evaluation. There are underlying degenerative findings as above. - SUSPECT GAS GANGRENE - PT INITIATED ON IV VANCOMYCIN WELL IV ROCEPHIN, WILL MONITOR CULTURE REPORT OF WOUND WELL BLOOD CULTURE REPORT. - see below for bone scan report BONE SCAN 3 PHASE INDICATION: Left foot diabetic ulcer. FINDINGS: There appears to be asymmetric increased blood flow to the left foot on the blood flow images. There is also some generalized soft tissue uptake on the blood pool images. There is some blood pool activity in the right great toe as well in addition to some increased blood flow to the right great toe. Delayed images just show some generalized uptake in the mid feet bilaterally which may be degenerative. No focus of tracer accumulation is seen to suggest a potential site of osteomyelitis. IMPRESSION: There is increased blood flow and blood pool activity in the region of the right great toe and throughout the left foot, likely owing to cellulitis. No definite three-phase abnormality is seen to suggest osteomyelitis. Dictated on workstation # [id number] Dict: 08/30/20 1610 Trans: 08/30/20 1625 [id number] HYPONATREMIA - DUE TO DM AND ACUTE ILLNESS - MONITOR LABS - IV FLUIDS WITH NORMAL SALINE. - SODIUM LEVELS IMPROVED ULCERATION RIGHT TOE - DRESSING TO TOE, MONITOR FOR FURTHER SYMPTOMS OF CELLULITIS OF THE GREAT TOE - BONE SCAN DID NOT REVEAL OSTEOMYELITIS UNCONTROLLED DIABETES MELLITUS - HOLD GLIPIZIDE AND METFORMIN - START ON LEVEMIR IN HOSPITAL WELL SLIDING SCALE B - DOSE OF LEVEMIR INCREASED FROM 10 TO 15 UNITS TONIGHT - CHECK HGBA1C HYPERTENSION - START VALSARTAN AND BETA QUYNH, MONITOR PRESSURES. HYPERLIPIDEMIA - START LIPITOR 20MG DAILY DEPRESSION - MULTI FACTORIAL - DTR IN HOSPITAL WITH COVID, FINANCIAL STRESS, ETC, WILL RESUME SSRI. ANEMIA - ANEMIA OF CHRONIC DISEASE, MONITOR LABS WITH HYDRATION. MEDICATION NONCOMPLIANCE DUE TO FINANCIAL HARDSHIP - WILL SEE IF TELECOMMUNICATIONS FIELD ENGINEER CAN HELP ON DC. CONSULT TO SURGEON, DVT PROPHYLAXIS WITH LOVENOX AND SCDS, GI PROPHYLAXIS WITH PPI AND PROBIOTICS. Supervisory-Addendum Brief Verification & Attestation Participated in pt care: history, MDM, physical Personally performed: exam, history, MDM, supervision of care Care discussed with: Medical Student Procedures: n/a Results interpretation: Verified all documentation AGREE WITH STUDENT NOTE DOCUMENTED. DIABETIC FOOT ULCER LEFT FOOT CELLULITIS LEFT FOOT HYPONATREMIA ULCERATION RIGHT TOE UNCONTROLLED DIABETES MELLITUS HYPERTENSION HYPERLIPIDEMIA DEPRESSION ANEMIA MEDICATION NONCOMPLIANCE DUE TO FINANCIAL HARDSHIP DIABETIC FOOT ULCER LEFT FOOT WITH CELLULITIS LEFT FOOT - IMAGING REPORT FOLLOWS: XRAY LEFT FOOT - Extensive soft tissue gas over the lateral portion of the foot centered near the 5th MTP joint. The findings are compatible with cellulitis. I do not see definite bony erosion, MRI may be helpful for further evaluation. There are underlying degenerative findings as above. - SUSPECT GAS GANGRENE - PT INITIATED ON IV VANCOMYCIN WELL IV ROCEPHIN, WILL MONITOR CULTURE REPORT OF WOUND WELL BLOOD CULTURE REPORT. - see below for bone scan report BONE SCAN 3 PHASE INDICATION: Left foot diabetic ulcer. FINDINGS: There appears to be asymmetric increased blood flow to the left foot on the blood flow images. There is also some generalized soft tissue uptake on the blood pool images. There is some blood pool activity in the right great toe as well in addition to some increased blood flow to the right great toe. Delayed images just show some generalized uptake in the mid feet bilaterally which may be degenerative. No focus of tracer accumulation is seen to suggest a potential site of osteomyelitis. IMPRESSION: There is increased blood flow and blood pool activity in the region of the right great toe and throughout the left foot, likely owing to cellulitis. No definite three-phase abnormality is seen to suggest osteomyelitis. Dictated on workstation # [id number] Dict: 08/30/20 1610 Trans: 08/30/20 1625 [id number] HYPONATREMIA - DUE TO DM AND ACUTE ILLNESS - MONITOR LABS - IV FLUIDS WITH NORMAL SALINE. - SODIUM LEVELS IMPROVED ULCERATION RIGHT TOE - DRESSING TO TOE, MONITOR FOR FURTHER SYMPTOMS OF CELLULITIS OF THE GREAT TOE - BONE SCAN DID NOT REVEAL OSTEOMYELITIS UNCONTROLLED DIABETES MELLITUS - HOLD GLIPIZIDE AND METFORMIN - START ON LEVEMIR IN HOSPITAL WELL SLIDING SCALE B - DOSE OF LEVEMIR INCREASED FROM 10 TO 15 UNITS TONIGHT - CHECK HGBA1C HYPERTENSION - STARTED VALSARTAN AND BETA QUYNH, MONITOR PRESSURES. HYPERLIPIDEMIA - STARTED LIPITOR 20MG DAILY DEPRESSION - MULTI FACTORIAL - DTR IN HOSPITAL WITH COVID, FINANCIAL STRESS, ETC, WILL RESUME SSRI. ANEMIA - ANEMIA OF CHRONIC DISEASE, MONITOR LABS WITH HYDRATION. MEDICATION NONCOMPLIANCE DUE TO FINANCIAL HARDSHIP - WILL SEE IF TELECOMMUNICATIONS FIELD ENGINEER CAN HELP ON DC. CONSULT TO SURGEON, DVT PROPHYLAXIS WITH LOVENOX AND SCDS, GI PROPHYLAXIS WITH PPI AND PROBIOTICS. SHAUN KING MED STUDENT Aug 31, 2020 08:06 VALERIE SCHULTE MD Sep 02, 2020 10:04
[2020-08-31] MEDS ORDERED: NON-FORMULARY MEDICATION 1 EA EA (Cetirizine HCl 10 MG) PO SCH (09:00)
[2020-08-31] MEDS: VANCOMYCIN 1,750 MG/NS 500 ML IVPB IV SCH ×2 (11:25)
[2020-08-31 11:36] VITALS: BP 169/74
[2020-08-31 15:44] VITALS: BP 164/77
[2020-08-31] MEDS: cefTRIAXone FOR IV USE 2,000 MG in WATER (STERILE) FOR INJECTION 20 ML IV SCH (16:57)
[2020-08-31] MEDS: ENOXAPARIN 40 MG/0.4 ML (LOVENOX) SYR SC SCH (16:57)
[2020-08-31 20:00] VITALS: BP 161/69
[2020-08-31] MEDS: SERTRALINE 50 MG (ZOLOFT) TABLET PO SCH (21:03)
[2020-08-31] MEDS: ALPRAZolam 0.25 MG (XANAX) TAB PO PRN (21:11)
[2020-09-01] VITALS (24 sets, daily range): BP systolic 124–170; BP diastolic 50–104
[2020-09-01] MEDS: VANCOMYCIN 1,750 MG/NS 500 ML IVPB IV SCH ×4 (00:03→14:43)
[2020-09-01] MEDS: inSUlin ASPART (NovoLOG) 1 UNIT/0.01 ML (CHARGE PER UNIT) SC SCH ×4 (06:57→22:01)
--- NOTE | 2020-09-01 07:09 | Progress Note - Surgery ---
VIN BRICE MED STUDENT 09/01/20 0709: Subjective Date Seen by a Provider: Sep 01, 2020 Time Seen by a Provider: 06:30 Subjective/Events-last exam Neha states she has not had pain or nausea yesterday. She denies fever, chills, new rash, SOB, chest pain, abdominal pain, and leg pain except for when applying pressure to her ulcer sites by bumping or walking on them. Nausea d/t Meniere's decreased yesterday. Headaches unchanged from chronic. Objective Exam Vital Signs Date Time Temp Pulse Resp B/P (MAP) Pulse Ox O2 Delivery O2 Flow Rate FiO2 09/01/20 04:00 36.5 89 18 124/94 (104) 98 Room Air 09/01/20 00:00 36.4 86 18 160/87 (111) 97 Room Air 08/31/20 20:45 Room Air 08/31/20 20:00 37.1 80 18 161/69 (99) 97 Room Air 08/31/20 15:44 37.2 76 18 164/77 (106) 95 Room Air 08/31/20 11:36 36.9 75 20 169/74 (105) 97 Room Air 08/31/20 08:02 36.6 73 20 149/69 (95) 96 Room Air 08/31/20 07:49 Room Air I & O 09/01/20 07:00 Intake Total 1870 ml Balance 1870 ml Capillary Refill : General Appearance: No Apparent Distress, Obese HEENT: PERRL/EOMI Neck: Normal Inspection Respiratory: Chest Non Tender, Lungs Clear, Normal Breath Sounds, No Accessory Muscle Use, No Respiratory Distress Cardiovascular: Regular Rate, Rhythm, No Murmur, Other (1+ pulses bilateral LE (palpated dp on right, pt on left)) Gastrointestinal: non tender, soft Extremity: Pedal Edema (1+ nonpitting on left lower extremity, unchanged compared to yesterday 08/31. No RLE edema. ), Other ( Left foot wrapped with Kerlex to the ankle. Dorsal aspect of right great toe has an encrusted ulceration without surrounding erythema. ) Neurologic/Psychiatric: Alert, Oriented x3 Skin: Normal Color, Warm/Dry, Erythema (erythema decreased compared to yesterday, barely extending superior to the left ankle.) Results Lab Laboratory Tests 08/31/20 11:11: Glucometer 308H 08/31/20 15:13: Glucometer 251H 08/31/20 20:32: Glucometer 247H 09/01/20 05:53: Glucometer 243H Microbiology 08/29/20 Blood Culture - Preliminary, Resulted No growth 08/29/20 Gram Stain - Final, Resulted 08/29/20 Wound Culture - Preliminary, Resulted Usual Mixed Skin Evelin Strep agalactiae Group B Staphylococcus aureus Assessment/Plan Assessment/Plan Assessment/Plan Left foot ulcer w/ edema and now necrotic tissue - pt npo since midnight, debridement planned today. Bone scan of BL LE 2 days ago without evidence of osteomyelitis. Right great toe ulceration Hyperglycemia, poorly controlled DM Hyponatremia - -improving with NS, partially due to hyperglycemia Acid reflux -is on ppi prophylaxis LAKISHA JULES DO 09/01/20 1059: Subjective Time Seen by a Provider: 10:20 Subjective/Events-last exam Pt seen and examined, she was seen just prior to OR and Left leg marked. Unfortunately, in the OR she went in to Afib with RVR; surgery put on hold by Anesthesia until Cardiology consult obtained. Pt denied any chest pain or SOB, just very nervous and in PACU was back in normal rhythm. No hx of Afib. She also asked if we were going to do anything with right big toe. Review of Systems General: No Chills, No Night Sweats Pulmonary: No Dyspnea, No Cough Cardiovascular: Palpitations; No: Chest Pain Gastrointestinal: No: Nausea, Vomiting, Abdominal Pain Musculoskeletal: foot pain (left) Objective Exam General Appearance: No Apparent Distress, Obese HEENT: PERRL/EOMI Respiratory: Chest Non Tender, Lungs Clear, Normal Breath Sounds, No Accessory Muscle Use Cardiovascular: Regular Rate, Rhythm, No Murmur, Other (1+ pulses bilateral LE (palpated dp on right, pt on left)) Gastrointestinal: non tender, soft Extremity: Other ( Left foot wrapped with Kerlex to the ankle. Dorsal aspect of right great toe has an encrusted ulceration without surrounding erythema and does not look necrotic) Neurologic/Psychiatric: Alert, Oriented x3, Other (anxious) Assessment/Plan Assessment/Plan Assessment/Plan Left foot ulcer w/ edema and now necrotic tissue - pt npo since midnight, debridement planned today. Bone scan of BL LE 2 days ago without evidence of osteomyelitis. Atrial Fibrillation with RVR - out in normal rhythm, will get Cardiology consult and hold surgery per Anesthesia Right great toe ulceration Hyperglycemia, poorly controlled DM Hyponatremia - -improving with NS, partially due to hyperglycemia Acid reflux -is on ppi prophylaxis Supervisory-Addendum Brief Verification & Attestation Participated in pt care: history, MDM, physical Personally performed: exam, history, MDM Care discussed with: Medical Student Procedures: n/a Verification and Attestation of Medical Student E/M Service A medical student performed and documented this service. I then reviewed and verified all information documented by the medical student and made modifications to such information, when appropriate. I personally performed a physical exam, medical decision making and then discussed any differences between the notes and made revisions as necessary to create one note. Lakisha Jules , 09/01/20 , 10:59 VIN BRICE MED STUDENT Sep 01, 2020 07:09 LAKISHA JULES DO Sep 01, 2020 10:59
[2020-09-01] MEDS: LORATADINE (CLARITIN) 10 MG TAB PO SCH (08:00)
[2020-09-01] MEDS: PANTOPRAZOLE 40 MG (PROTONIX) TAB PO SCH (08:00)
[2020-09-01] MEDS: BISOPROLOL 5 MG TAB (ZEBETA) PO SCH (08:00)
[2020-09-01] MEDS: VALSARTAN 80 MG (DIOVAN) TAB PO SCH (08:00)
[2020-09-01] MEDS: LACTOBACILLUS ACIDOPHILUS (PROBIOTIC) CAPSULE PO SCH ×3 (08:00→16:44)
[2020-09-01] MEDS ORDERED: LIDOCAINE/EPI 1%-1:100,000 (XYLOCAINE) 20ML ONE (08:34)
--- NOTE | 2020-09-01 08:58 | Progress Note ---
Subjective Subjective Date Seen by Provider: Sep 01, 2020 Time Seen by Provider: 18:00 PT WAS TO HAVE SURGERY THIS MORNING SHE ENDED UP GOING DOWN, HAD A SHORT RUN OF AFIB, AND SURGERY WAS POSTPONED FOR SEVERAL HOURS, ENDED UP GOING DOWN TO SURGERY AT 1300. SHE REPORTS THAT SHE IS FEELING BETTER, FOOT IS A LITTLE SORE. SHE DENIES CHEST PAIN, SHORTNESS OF BREATH Review of Systems General: No Chills, No Night Sweats HEENT: No Head Aches Pulmonary: No Dyspnea, No Cough Cardiovascular: No: Chest Pain, Palpitations Gastrointestinal: No: Nausea, Vomiting Genitourinary: No Dysuria Musculoskeletal: leg pain, foot pain (LEFT) Neurological: Weakness; No: Confusion All Other Systems Reviewed All Other Systems Reviewed: Yes Objective Exam Vital Signs Vital Signs - First Documented 08/29/20 08/29/20 15:30 16:00 Temp 36.6 Pulse 70 Resp 18 B/P (MAP) 128/58 (81) Pulse Ox 97 O2 Delivery Room Air Capillary Refill : General Appearance: No Apparent Distress, Obese Eyes: Bilateral Eye Normal Inspection, Bilateral Eye PERRL, Bilateral Eye EOMI HEENT: PERRL/EOMI Neck: Normal Inspection Respiratory: Chest Non Tender, Lungs Clear, Normal Breath Sounds, No Accessory Muscle Use, No Respiratory Distress Cardiovascular: Regular Rate, Rhythm, No Murmur, Other (1+ pulses bilateral LE (palpated dp on right, pt on left)) Gastrointestinal: Soft Rectal: Deferred Back: No Vertebral Tenderness Extremity: Pedal Edema (1+ nonpitting on left lower extremity, unchanged compared to yesterday 08/31. No RLE edema. ), Other ( Left foot wrapped with Kerlex to the ankle. Dorsal aspect of right great toe has an encrusted ulceration without surrounding erythema. ) Neurologic/Psychiatric: Alert, Oriented x3 Skin: Normal Color, Warm/Dry, Erythema (erythema decreased compared to yesterday, barely extending superior to the left ankle.) Results Lab Laboratory Tests 08/31/20 11:11: Glucometer 308H 08/31/20 15:13: Glucometer 251H 08/31/20 20:32: Glucometer 247H 09/01/20 05:53: Glucometer 243H Microbiology 08/29/20 Blood Culture - Preliminary, Resulted No growth 08/29/20 Gram Stain - Final, Resulted 08/29/20 Wound Culture - Preliminary, Resulted Usual Mixed Skin Evelin Strep agalactiae Group B Staphylococcus aureus Assessment/Plan Assessment/Plan Admission Dx DIABETIC FOOT ULCER LEFT FOOT CELLULITIS LEFT FOOT HYPONATREMIA ULCERATION RIGHT TOE UNCONTROLLED DIABETES MELLITUS HYPERTENSION HYPERLIPIDEMIA DEPRESSION ANEMIA MEDICATION NONCOMPLIANCE DUE TO FINANCIAL HARDSHIP Assessment and Plan DIABETIC FOOT ULCER LEFT FOOT CELLULITIS LEFT FOOT HYPONATREMIA ULCERATION RIGHT TOE UNCONTROLLED DIABETES MELLITUS HYPERTENSION HYPERLIPIDEMIA DEPRESSION ANEMIA MEDICATION NONCOMPLIANCE DUE TO FINANCIAL HARDSHIP DIABETIC FOOT ULCER LEFT FOOT WITH CELLULITIS LEFT FOOT - S/P SURGICAL INTERVENTION - WITH POSSIBLE RE-EVAL AND REPEAT SURGERY TOMORROW. - IMAGING REPORT FOLLOWS: XRAY LEFT FOOT - Extensive soft tissue gas over the lateral portion of the foot centered near the 5th MTP joint. The findings are compatible with cellulitis. I do not see definite bony erosion, MRI may be helpful for further evaluation. There are underlying degenerative findings as above. - SUSPECT GAS GANGRENE - PT INITIATED ON IV VANCOMYCIN WELL IV ROCEPHIN, WILL MONITOR CULTURE REPORT OF WOUND WELL BLOOD CULTURE REPORT. - see below for bone scan report BONE SCAN 3 PHASE INDICATION: Left foot diabetic ulcer. FINDINGS: There appears to be asymmetric increased blood flow to the left foot on the blood flow images. There is also some generalized soft tissue uptake on the blood pool images. There is some blood pool activity in the right great toe as well in addition to some increased blood flow to the right great toe. Delayed images just show some generalized uptake in the mid feet bilaterally which may b e degenerative. No focus of tracer accumulation is seen to suggest a potential site of osteomyelitis. IMPRESSION: There is increased blood flow and blood pool activity in the region of the right great toe and throughout the left foot, likely owing to cellulitis. No definite three-phase abnormality is seen to suggest osteomyelitis. Dictated on workstation # [id number] Dict: 08/30/20 1610 Trans: 08/30/20 1625 [id number] HYPONATREMIA - DUE TO DM AND ACUTE ILLNESS - MONITOR LABS - IV FLUIDS WITH NORMAL SALINE. - SODIUM LEVELS IMPROVED ULCERATION RIGHT TOE - DRESSING TO TOE, MONITOR FOR FURTHER SYMPTOMS OF CELLULITIS OF THE GREAT TOE - BONE SCAN DID NOT REVEAL OSTEOMYELITIS UNCONTROLLED DIABETES MELLITUS - HOLD GLIPIZIDE AND METFORMIN - START ON LEVEMIR IN HOSPITAL WELL SLIDING SCALE B - DOSE OF LEVEMIR INCREASED FROM 10 TO 15 UNITS TONIGHT - CHECK HGBA1C HYPERTENSION - STARTED VALSARTAN AND BETA QUYNH, MONITOR PRESSURES. HYPERLIPIDEMIA - STARTED LIPITOR 20MG DAILY DEPRESSION - MULTI FACTORIAL - DTR IN HOSPITAL WITH COVID, FINANCIAL STRESS, ETC, WILL RESUME SSRI. ANEMIA - ANEMIA OF CHRONIC DISEASE, MONITOR LABS WITH HYDRATION. MEDICATION NONCOMPLIANCE DUE TO FINANCIAL HARDSHIP - WILL SEE IF COSMETICIAN APPRENTICE CAN HELP ON DC. CONSULT TO SURGEON, DVT PROPHYLAXIS WITH LOVENOX AND SCDS, GI PROPHYLAXIS WITH PPI AND PROBIOTICS. Admission Dx DIABETIC FOOT ULCER LEFT FOOT CELLULITIS LEFT FOOT HYPONATREMIA ULCERATION RIGHT TOE UNCONTROLLED DIABETES MELLITUS HYPERTENSION HYPERLIPIDEMIA DEPRESSION ANEMIA MEDICATION NONCOMPLIANCE DUE TO FINANCIAL HARDSHIP Clinical Quality Measures Admission Status Admission Dx DIABETIC FOOT ULCER LEFT FOOT CELLULITIS LEFT FOOT HYPONATREMIA ULCERATION RIGHT TOE UNCONTROLLED DIABETES MELLITUS HYPERTENSION HYPERLIPIDEMIA DEPRESSION ANEMIA MEDICATION NONCOMPLIANCE DUE TO FINANCIAL HARDSHIP VALERIE SCHULTE MD Sep 01, 2020 08:58
[2020-09-01] MEDS: BETAMETHASONE DIPRO (AUGMENTED) 0.05% OINT 15 GM TOP SCH ×2 (09:00→21:45)
[2020-09-01] MEDS ORDERED: fentaNYL INJ 100 MCG/2 ML AMP ONE ×2 (09:46→13:05)
[2020-09-01] MEDS ORDERED: proPOfol 200 MG/20 ML (DIPRIVAN) VIAL IV ONE ×2 (09:47→13:05)
[2020-09-01] MEDS ORDERED: ONDANSETRON 4 MG/2 ML (SDV) Z0FRAN ONE ×2 (09:47→13:05)
[2020-09-01] MEDS ORDERED: LIDOCAINE PF 2% 5 ML (XYLOCAINE) VIAL ONE ×2 (09:47→13:29)
[2020-09-01] MEDS ORDERED: MIDAZOLAM 2 MG/2 ML (VERSED) VIAL ONE ×2 (09:47→13:06)
[2020-09-01] MEDS ORDERED: SEVOFLURANE (ULTANE) 15 ML INHAL SOLN ONE ×4 (09:49→13:05)
[2020-09-01] MEDS ORDERED: LACTATED RINGERS 1,000 ML IV PRN ×2 (10:00→12:30)
--- NOTE | 2020-09-01 12:15 | Consultation-Cardiology ---
HPI-Cardiology Cardiology Consultation: Date of Consultation 09/01/20 Time Seen by a Provider: 11:58 Date of Admission Attending Physician Mayte Hernandez MD Admitting Physician Mayte Hernandez MD Consulting Physician MATEO GORDILLO MD, MA, FACP, FACC, FSCAI, CCDS Physician requesting consult: Dr Jules HPI: Chief Complaint: Reason for consultation: PAF with RVR HPI 65 yo woman admitted with a L foot ulcer, was in OR, developed PAF w/ RVR prior to initiation of surg, surg cancelled, we were asked to see in consult. No cp or palp or syncope. She also denies focal weakness. Has had soreness, redness, swelling, and elevated temp of the L foot for several days Notes some gen malaise. Denies shortness of breath Denies fever or chills Review of Systems-Cardiology Review of Systems Constitutional: As described under HPI Eyes: No vision change Ears/Nose/Throat: No ear discharge, No nasal drainage, No recent hearing loss Respiratory: As described under HPI Cardiovascular: As described under HPI Gastrointestinal: No constipation, No diarrhea, No nausea, No vomiting Genitourinary: No dysuria, No hematuria, No urine frequency changes Musculoskeletal: As describe under HPI; No back pain Skin: As described under HPI Psychiatric/Neurological: No seizure, No focal weakness, No syncope Hematologic: No bleeding abnormalities All Other Systems Reviewed Negative Unless Noted: Yes [id number] Hx Patient Social History Marrital Status: Living Status: LIVES AT HOME WITH SPOUSE Employed/Student: unemployed Smoking Status: Former Smoker 2nd Hand Smoke Exposure: No Have you traveled recently?: No Alcohol Use?: Yes Substance type: Marijuana Pt feels they are or have been: No Immunizations Up To Date Date of Influenza Vaccine: Feb 18, 2020 Past Medical History PMH As described under Assessment. Family Medical History Family Medical History: Does not report fam h/o early CAD or SCD Allergies and Home Medications Allergies Coded Allergies: lisinopril (Verified Adverse Reaction, Unknown, COUGH, 08/30/20) Home Medications ALPRAZolam 0.25 Mg Tablet, 0.25 MG PO BID PRN for ANXIETY, (Reported) Last Action: Reviewed Acetaminophen 500 Mg Tablet, 500-1,000 MG PO Q6H PRN for PAIN-MILD (1-4), (Reported) Last Action: Reviewed Bisoprolol Fumarate/Hctz 1 Each Tablet, 1 EA PO DAILY, (Reported) Last Action: Reviewed Cetirizine HCl 10 Mg Tablet, 10 MG PO DAILY, (Reported) Last Action: Converted Enalapril Maleate 10 Mg Tablet, 10 MG PO BID, (Reported) Last Action: Reviewed Loratadine 10 Mg Tablet, 10 MG PO DAILY PRN for ALLERGY SYYMPTOMS, (Reported) Last Action: Reviewed Meclizine HCl 25 Mg Tablet, 25 MG PO Q8H PRN for DIZZINESS, (Reported) Last Action: Reviewed Patient Home Medication List Home Medication List Reviewed: Yes Physical Exam-Cardiology Physical Exam Vital Signs/I&O 09/01/20 09/01/20 09/01/20 09/01/20 04:00 07:25 08:00 10:50 Temp 36.5 36.2 Pulse 89 78 Resp 18 18 B/P (MAP) 124/94 (104) 162/72 (102) Pulse Ox 98 96 O2 Delivery Room Air Room Air Room Air Room Air 09/01/20 09/01/20 10:59 11:00 Pulse 85 85 Resp 13 B/P (MAP) 144/63 (90) Pulse Ox 98 O2 Delivery Room Air 09/01/20 00:00 Intake Total 1870 ml Balance 1870 ml Capillary Refill : Constitutional: AAO x 3, well-developed, well-nourished HEENT: EOMI, hearing is well preserved; No xanthelasmas are seen Neck: carotid pulses are 2 + bilaterally Respiratory: No accessory muscle use; other (good, bilateral air entry) Cardiovascular: regular rate-rhythm, S1 and S2, systolic murmur (soft PA at card base) Gastrointestinal: No tender; soft; No guarding; audible bowel sounds Extremities: other (L foot under dressing that was not removed. Some swelling, redness and elevated temp of the L ankle and foot noted); No clubbing, No cyanosis Neurologic/Psychiatric: oriented x 3, other (moves all limbs equally) Skin: No rash on exposed areas, No ulcerations on exposed areas; other (L foot under dressing that was not removed. Some swelling, redness and elevated temp of the L ankle and foot noted) Lymphatic: no adenopathy (neck, axilla or groin) Data Review Labs Laboratory Tests 08/31/20 15:13: Glucometer 251H 08/31/20 20:32: Glucometer 247H 09/01/20 05:53: Glucometer 243H Microbiology 08/29/20 Blood Culture - Preliminary, Resulted No growth 08/29/20 Gram Stain - Final, Resulted 08/29/20 Wound Culture - Preliminary, Resulted Usual Mixed Skin Evelin Strep agalactiae Group B Staphylococcus aureus Laboratory Tests 08/31/20 04:00 A/P-Cardiology Assessment/Admission Diagnosis PAF with RVR DM II Anemia of undetermined etiology, managed by the Med Svce 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 She understands and wishes to proceed. * We recommend oral, long-acting diltiazem * We recommend oral anticoag as soon as feasible from a surgical standpoint MATEO GORDILLO MD FACP FAC CCD Sep 01, 2020 12:15
[2020-09-01] MEDS ORDERED: LIDOCAINE/EPI 1%-1:200,000 (XYLOCAINE) 10 ML VIAL ONE (12:49)
[2020-09-01] MEDS ORDERED: HYDROmorphone 2 MG/ML VIAL (DILAUDID) IV ONE (14:00)
[2020-09-01] MEDS ORDERED: ONDANSETRON 4 MG/2 ML (SDV) Z0FRAN IVP PRN (14:00)
[2020-09-01] MEDS: NS IV 1000 ML 1,000 ML IV SCH (14:42)
[2020-09-01] MEDS ORDERED: cefTRIAXone 1,000 MG IV (ROCEPHIN) VIAL ONE (16:31)
[2020-09-01] MEDS ORDERED: WATER (STERILE) FOR INJECTION 0 ML ONE (16:31)
[2020-09-01] MEDS ORDERED: cefTRIAXone 2 GM/20 ML for IV (ROCEPHIN) ONE (16:34)
[2020-09-01] MEDS ORDERED: WATER (STERILE) FOR INJECTION 20 ML ONE (16:34)
[2020-09-01] MEDS: ENOXAPARIN 40 MG/0.4 ML (LOVENOX) SYR SC SCH (16:42)
[2020-09-01] MEDS: cefTRIAXone FOR IV USE 2,000 MG in WATER (STERILE) FOR INJECTION 20 ML IV SCH (16:44)
[2020-09-01] MEDS: ACETAMINOPHEN 500 MG TAB (TYLENOL) PO PRN ×2 (17:47→21:44)
[2020-09-01] MEDS: SERTRALINE 50 MG (ZOLOFT) TABLET PO SCH (21:43)
[2020-09-02] VITALS (9 sets, daily range): BP systolic 141–171; BP diastolic 55–74
[2020-09-02] MEDS: NS IV 1000 ML 1,000 ML IV SCH ×3 (00:48→16:31)
[2020-09-02] MEDS: VANCOMYCIN 1,750 MG/NS 500 ML IVPB IV SCH ×4 (00:51→14:10)
[2020-09-02 04:02] LABS: BASOPHILS % (AUTO) 1 % (0-10); EOSINOPHILS # (AUTO) 0.3 10^3/uL (0.0-0.3); EOSINOPHILS % (AUTO) 5 % (0-10); HEMATOCRIT 30 % (35-52); HEMOGLOBIN 9.8 g/dL (11.5-16.0); LYMPHOCYTES # (AUTO) 1.5 10^3/uL (1.0-4.0); LYMPHOCYTES % (AUTO) 27 % (12-44); MEAN CORPUSCULAR HEMOGLOBIN 28 pg (25-34); MEAN CORPUSCULAR HGB CONC 33 g/dL (32-36); MEAN CORPUSCULAR VOLUME 85 fL (80-99); MEAN PLATELET VOLUME 9.6 fL (9.0-12.2); MONOCYTES # (AUTO) 0.5 10^3/uL (0.0-1.0); MONOCYTES % (AUTO) 10 % (0-12); NEUTROPHILS # (AUTO) 2.8 10^3/uL (1.8-7.8); NEUTROPHILS % (AUTO) 51 % (42-75); PLATELET COUNT 293 10^3/uL (130-400); WHITE BLOOD COUNT 5.4 10^3/uL (4.3-11.0)
[2020-09-02 04:17] LABS: CHLORIDE 105 MMOL/L (98-107); POTASSIUM 3.4 MMOL/L (3.6-5.0); SODIUM 139 MMOL/L (135-145)
[2020-09-02 04:18] LABS: CALCIUM 8.4 MG/DL (8.5-10.1); GLUCOSE 190 MG/DL (70-105)
[2020-09-02 04:20] LABS: CARBON DIOXIDE 21 MMOL/L (21-32)
[2020-09-02 04:22] LABS: CREATININE SERUM 0.59 MG/DL (0.60-1.30); GFR ESTIMATED > 60; PHOSPHORUS 4.5 MG/DL (2.3-4.7)
[2020-09-02 04:23] LABS: BUN/CREATININE RATIO 14
[2020-09-02 04:25] LABS: MAGNESIUM 1.5 MG/DL (1.6-2.4)
[2020-09-02] MEDS: inSUlin ASPART (NovoLOG) 1 UNIT/0.01 ML (CHARGE PER UNIT) SC SCH ×4 (06:14→20:48)
[2020-09-02] MEDS: MAGNESIUM 1 GM/100 ML IVPB 100 ML IV SCH (06:26)
[2020-09-02] MEDS: KCL 20 MEQ TAB (K-DUR) PO SCH (06:26)
[2020-09-02] MEDS: POTASSIUM CL 10MEQ/50ML IVPB 50 ML IV SCH (06:26)
--- NOTE | 2020-09-02 06:59 | Anesthesia-General Post-Op ---
General Patient Condition Mental Status/LOC: Same as Preop Cardiovascular: Satisfactory Nausea/Vomiting: Absent Respiratory: Satisfactory Pain: Controlled Complications: Absent Post Op Complications Complications None Follow Up Care/Instructions Patient Instructions None needed. Anesthesia/Patient Condition Patient Condition Patient is doing well, no complaints, stable vital signs, no apparent adverse anesthesia problems. No complications reported per nursing. [place] [facility] [place]: SHAUN Alvarado CRNA Sep 02, 2020 06:59
[2020-09-02] MEDS ORDERED: KETOROLAC 15 MG/ML VIAL ONE (09:04)
[2020-09-02] MEDS: LORATADINE (CLARITIN) 10 MG TAB PO SCH (09:23)
[2020-09-02] MEDS: BETAMETHASONE DIPRO (AUGMENTED) 0.05% OINT 15 GM TOP SCH ×2 (09:23→20:48)
[2020-09-02] MEDS: PANTOPRAZOLE 40 MG (PROTONIX) TAB PO SCH (09:23)
[2020-09-02] MEDS: BISOPROLOL 5 MG TAB (ZEBETA) PO SCH (09:23)
[2020-09-02] MEDS: LACTOBACILLUS ACIDOPHILUS (PROBIOTIC) CAPSULE PO SCH ×3 (09:23→17:41)
[2020-09-02] MEDS: VALSARTAN 80 MG (DIOVAN) TAB PO SCH (09:54)
[2020-09-02] MEDS ORDERED: TROUGH ORDER-PHARMACY XX ONE (10:00)
--- NOTE | 2020-09-02 10:21 | Progress Note ---
Subjective Subjective Date Seen by Provider: Sep 02, 2020 Time Seen by Provider: 09:10 THIS MORNING WHEN I OPENED HER DOOR SHE WAS SITTING AT THE EDGE OF THE BED CRYING WITH PUFFY EYES, SHE WAS COMPLAINING OF A HEADACHE. SHE HAS A DTR IN THE HOSPITAL IN [place] WITH COVID AND SHE IS UNSURE HOW SHE IS DOING AND SHE IS REALLY UPSET AND WORRIED. Review of Systems General: No Chills, No Night Sweats; Fatigue HEENT: No Head Aches Pulmonary: No Dyspnea, No Cough Cardiovascular: No: Chest Pain, Palpitations Gastrointestinal: No: Nausea, Vomiting Genitourinary: No Dysuria Musculoskeletal: leg pain, foot pain (LEFT) Neurological: Weakness; No: Confusion All Other Systems Reviewed All Other Systems Reviewed: Yes Objective Exam Vital Signs Vital Signs - First Documented 08/29/20 08/29/20 09/01/20 15:30 16:00 10:32 Temp 36.6 Pulse 70 Resp 18 B/P (MAP) 128/58 (81) Pulse Ox 97 O2 Delivery Room Air O2 Flow Rate 3 Capillary Refill : General Appearance: No Apparent Distress, WD/WN, Obese Eyes: Bilateral Eye Normal Inspection, Bilateral Eye PERRL, Bilateral Eye EOMI HEENT: PERRL/EOMI Neck: Normal Inspection Respiratory: Chest Non Tender, Lungs Clear, Normal Breath Sounds, No Accessory Muscle Use, No Respiratory Distress Cardiovascular: Regular Rate, Rhythm, No Murmur, Other (1+ pulses bilateral LE (palpated dp on right, pt on left)) Gastrointestinal: Soft Rectal: Deferred Back: No Vertebral Tenderness Extremity: Pedal Edema (1+ nonpitting on left lower extremity, unchanged compared to yesterday 08/31. No RLE edema. ), Other ( Left foot wrapped with Ke rlex to the ankle. Dorsal aspect of right great toe has an encrusted ulceration without surrounding erythema. ) Neurologic/Psychiatric: Alert, Oriented x3, No Motor/Sensory Deficits, Normal Mood/Affect Skin: Normal Color, Warm/Dry, Erythema (erythema decreased compared to yesterday, barely extending superior to the left ankle.) Results Lab Laboratory Tests 09/01/20 16:37: Glucometer 211H 09/01/20 18:09: Glucometer 176H 09/01/20 21:49: Glucometer 186H 09/02/20 03:28: White Blood Count 5.4, Red Blood Count 3.54L, Hemoglobin 9.8L, Hematocrit 30L, Mean Corpuscular Volume 85, Mean Corpuscular Hemoglobin 28, Mean Corpuscular Hemoglobin Concent 33, Red Cell Distribution Width 13.0, Platelet Count 293, Mean Platelet Volume 9.6, Immature Granulocyte % (Auto) 7, Neutrophils (%) (Auto) 51, Lymphocytes (%) (Auto) 27, Monocytes (%) (Auto) 10, Eosinophils (%) (Auto) 5, Basophils (%) (Auto) 1, Neutrophils # (Auto) 2.8, Lymphocytes # (Auto) 1.5, Monocytes # (Auto) 0.5, Eosinophils # (Auto) 0.3, Basophils # (Auto) 0.0, Immature Granulocyte # (Auto) 0.4H, Sodium Level 139, Potassium Level 3.4L, Chloride Level 105, Carbon Dioxide Level 21, Anion Gap 13, Blood Urea Nitrogen 8, Creatinine 0.59L, Estimat Glomerular Filtration Rate > 60, BUN/Creatinine Ratio 14, Glucose Level 190H, Calcium Level 8.4L, Phosphorus Level 4.5, Magnesium Level 1.5L 09/02/20 09:57: Microbiology 09/01/20 Gram Stain - Final, Resulted 09/01/20 Anaerobic Culture, Resulted Pending 09/01/20 Surgical Culture - Preliminary, Resulted Mixed Bacterial Evelin Strep agalactiae Group B 08/31/20 MRSA Screen - Final, Complete MRSA not isolated 08/29/20 Blood Culture - Preliminary, Resulted No growth Assessment/Plan Assessment/Plan Admission Dx DIABETIC FOOT ULCER LEFT FOOT CELLULITIS LEFT FOOT HYPONATREMIA ULCERATION RIGHT TOE UNCONTROLLED DIABETES MELLITUS HYPERTENSION HYPERLIPIDEMIA DEPRESSION ANEMIA MEDICATION NONCOMPLIANCE DUE TO FINANCIAL HARDSHIP Assessment and Plan DIABETIC FOOT ULCER LEFT FOOT CELLULITIS LEFT FOOT HYPONATREMIA ULCERATION RIGHT TOE UNCONTROLLED DIABETES MELLITUS HYPERTENSION HYPERLIPIDEMIA DEPRESSION ANEMIA MEDICATION NONCOMPLIANCE DUE TO FINANCIAL HARDSHIP DIABETIC FOOT ULCER LEFT FOOT WITH CELLULITIS LEFT FOOT - S/P SURGICAL INTERVENTION - WITH POSSIBLE RE-EVAL AND POSSIBLY REPEAT SURGERY TODAY. - IMAGING REPORT FOLLOWS: XRAY LEFT FOOT - Extensive soft tissue gas over the lateral portion of the foot centered near the 5th MTP joint. The findings are compatible with cellulitis. I do not see definite bony erosion, MRI may be helpful for further evaluation. There are underlying degenerative findings as above. - SUSPECT GAS GANGRENE - PT INITIATED ON IV VANCOMYCIN WELL IV ROCEPHIN, WILL MONITOR CULTURE REPORT OF WOUND WELL BLOOD CULTURE REPORT. - see below for bone scan report BONE SCAN 3 PHASE INDICATION: Left foot diabetic ulcer. FINDINGS: There appears to be asymmetric increased blood flow to the left foot on the blood flow images. There is also some generalized soft tissue uptake on the blood pool images. There is some blood pool activity in the right great toe as well in addition to some increased blood flow to the right great toe. Delayed images just show some generalized uptake in the mid feet bilaterally which may be degenerative. No focus of tracer accumulation is seen to suggest a potential site of osteomyelitis. IMPRESSION: There is increased blood flow and blood pool activity in the region of the right great toe and throughout the left foot, likely owing to cellulitis. No definite three-phase abnormality is seen to suggest osteomyelitis. Dictated on workstation # [id number] Dict: 08/30/20 1610 Trans: 08/30/20 1625 [id number] HYPONATREMIA - DUE TO DM AND ACUTE ILLNESS - MONITOR LABS - IV FLUIDS WITH NORMAL SALINE. - SODIUM LEVELS IMPROVED ULCERATION RIGHT TOE - DRESSING TO TOE, MONITOR FOR FURTHER SYMPTOMS OF CELLULITIS OF THE GREAT TOE - BONE SCAN DID NOT REVEAL OSTEOMYELITIS UNCONTROLLED DIABETES MELLITUS - HOLD GLIPIZIDE AND METFORMIN - START ON LEVEMIR IN HOSPITAL WELL SLIDING SCALE B - DOSE OF LEVEMIR INCREASED TO 15 UNITS - CHECK HGBA1C HYPERTENSION - STARTED VALSARTAN AND BETA QUYNH, MONITOR PRESSURES. HYPERLIPIDEMIA - STARTED LIPITOR 20MG DAILY DEPRESSION - MULTI FACTORIAL - DTR IN HOSPITAL WITH COVID, FINANCIAL STRESS, ETC, WILL RESUME SSRI. ANEMIA - ANEMIA OF CHRONIC DISEASE, MONITOR LABS WITH HYDRATION. MEDICATION NONCOMPLIANCE DUE TO FINANCIAL HARDSHIP - WILL SEE IF QUARTER BACKER CAN HELP ON DC. CONSULT TO SURGEON, DVT PROPHYLAXIS WITH LOVENOX AND SCDS, GI PROPHYLAXIS WITH PPI AND PROBIOTICS. Admission Dx DIABETIC FOOT ULCER LEFT FOOT CELLULITIS LEFT FOOT HYPONATREMIA ULCERATION RIGHT TOE UNCONTROLLED DIABETES MELLITUS HYPERTENSION HYPERLIPIDEMIA DEPRESSION ANEMIA MEDICATION NONCOMPLIANCE DUE TO FINANCIAL HARDSHIP Clinical Quality Measures Admission Status Admission Dx DIABETIC FOOT ULCER LEFT FOOT CELLULITIS LEFT FOOT HYPONATREMIA ULCERATION RIGHT TOE UNCONTROLLED DIABETES MELLITUS HYPERTENSION HYPERLIPIDEMIA DEPRESSION ANEMIA MEDICATION NONCOMPLIANCE DUE TO FINANCIAL HARDSHIP VALERIE SCHULTE MD Sep 02, 2020 10:21
--- NOTE | 2020-09-02 12:09 | Cardiology Progress Note ---
Cardiology SOAP Progress Note Subjective: No cardiac complaints. Objective: I&O/Vital Signs 09/02/20 09/02/20 09/02/20 09/02/20 01:00 02:00 03:00 04:00 Pulse 74 71 69 Resp 29 25 16 B/P (MAP) 143/60 (87) 141/65 (90) Pulse Ox 97 95 93 O2 Delivery Room Air Room Air Room Air Room Air 09/02/20 09/02/20 09/02/20 09/02/20 05:00 06:00 07:00 11:30 Pulse 83 68 72 66 Resp 22 21 20 B/P (MAP) 153/55 (87) 160/71 (100) 167/68 (101) Pulse Ox 95 96 96 O2 Delivery Room Air Room Air Room Air 09/02/20 00:00 Intake Total 300 ml Balance 300 ml Constitutional: AAO x 3, well-developed, well-nourished Respiratory: No accessory muscle use; other (good, bilateral air entry) Cardiovascular: regular rate-rhythm, S1 and S2, systolic murmur (soft PA at card base) Gastrointestional: No tender; soft; No guarding; audible bowel sounds Extremities: other (L foot under dressing that was not removed. Some swelling, redness and elevated temp of the L ankle and foot noted); No clubbing, No cyanosis Neurologic/Psychiatric: oriented x 3, other (moves all limbs equally) Skin: No rash on exposed areas, No ulcerations on exposed areas; other (L foot under dressing that was not removed. Some swelling, redness and elevated temp of the L ankle and foot noted) Results/Procedures: Labs Laboratory Tests 09/01/20 16:37: Glucometer 211H 09/01/20 18:09: Glucometer 176H 09/01/20 21:49: Glucometer 186H 09/02/20 03:28: White Blood Count 5.4, Red Blood Count 3.54L, Hemoglobin 9.8L, Hematocrit 30L, Mean Corpuscular Volume 85, Mean Corpuscular Hemoglobin 28, Mean Corpuscular Hemoglobin Concent 33, Red Cell Distribution Width 13.0, Platelet Count 293, Mean Platelet Volume 9.6, Immature Granulocyte % (Auto) 7, Neutrophils (%) (Auto) 51, Lymphocytes (%) (Auto) 27, Monocytes (%) (Auto) 10, Eosinophils (%) (Auto) 5, Basophils (%) (Auto) 1, Neutrophils # (Auto) 2.8, Lymphocytes # (Auto) 1.5, Monocytes # (Auto) 0.5, Eosinophils # (Auto) 0.3, Basophils # (Auto) 0.0, Immature Granulocyte # (Auto) 0.4H, Sodium Level 139, Potassium Level 3.4L, Chloride Level 105, Carbon Dioxide Level 21, Anion Gap 13, Blood Urea Nitrogen 8, Creatinine 0.59L, Estimat Glomerular Filtration Rate > 60, BUN/Creatinine Ratio 14, Glucose Level 190H, Calcium Level 8.4L, Phosphorus Level 4.5, Magnesium Level 1.5L 09/02/20 09:57: Vancomycin Level Trough 17.0 Microbiology 09/01/20 Gram Stain - Final, Resulted 09/01/20 Anaerobic Culture, Resulted Pending 09/01/20 Surgical Culture - Preliminary, Resulted Mixed Bacterial Evelin Strep agalactiae Group B 08/31/20 MRSA Screen - Final, Complete MRSA not isolated 08/29/20 Blood Culture - Preliminary, Resulted No growth A/P: Assessment/Dx: PAF with RVR; currently in sinus rhythm. 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 Mcguire as an outpatient. Thank you for your consultation. Please call me if you have any questions. Frank Mays MD, FACP, FACC, FSCAI, FHRS, CCDS Interventional Cardiology Cardiac Electrophysiology Vascular Medicine and Endovascular Interventions Rodríguez MAYS MD Sep 02, 2020 12:09
--- NOTE | 2020-09-02 12:13 | Progress Note-Post Operative ---
Post-Operative Progess Note Surgeon (s)/Marker Delivery (s) Surgeon LAKISHA LLAMAS DO Marker Delivery: JOSE ALFREDO Urbina Pre-Operative Diagnosis necrotic tissue left foot Post-Operative Diagnosis same Procedure & Operative Findings Date of Procedure 09/02/20 Procedure Performed/Findings Debridement necrotic tissue 8.5 x 4.6cm, including skin, fascia and ms Anesthesia Type LMA Estimated Blood Loss Estimated blood loss (mL): minimal Specimens/Packing Specimens Removed necrotic tissue LAKISHA LLAMAS DO Sep 02, 2020 12:13
--- NOTE | 2020-09-02 12:20 | Progress Note - Surgery ---
Subjective Time Seen by a Provider: 10:59 Subjective/Events-last exam Pt seen and examined, denies any foot pain. She is hungry because she is npo. Review of Systems General: No Chills, No Night Sweats Pulmonary: No Dyspnea, No Cough Cardiovascular: No: Chest Pain, Palpitations Gastrointestinal: No: Nausea, Vomiting, Abdominal Pain Objective Exam Vital Signs Date Time Temp Pulse Resp B/P (MAP) Pulse Ox O2 Delivery O2 Flow Rate FiO2 09/02/20 11:30 66 20 167/68 (101) 96 Room Air 09/02/20 08:00 Room Air 09/02/20 07:00 72 09/02/20 06:00 68 21 160/71 (100) 96 Room Air 09/02/20 05:00 83 22 153/55 (87) 95 Room Air 09/02/20 04:00 Room Air 09/02/20 03:00 69 16 141/65 (90) 93 Room Air 09/02/20 02:00 71 25 143/60 (87) 95 Room Air 09/02/20 01:00 74 29 97 Room Air 09/02/20 00:00 73 22 166/71 (102) 96 Room Air 09/01/20 23:00 73 22 170/83 (112) 96 Room Air 09/01/20 22:00 75 10 165/70 (101) 95 Room Air 09/01/20 21:00 77 23 169/82 (111) 91 Room Air 09/01/20 20:00 75 24 162/73 (102) 94 Room Air 09/01/20 20:00 Room Air 09/01/20 19:00 75 19 164/61 (95) 95 Room Air 09/01/20 19:00 74 09/01/20 18:00 76 15 126/64 (84) 96 Room Air 09/01/20 17:00 75 21 139/68 (91) 94 Room Air 09/01/20 16:00 76 22 133/50 (77) 94 Room Air 09/01/20 15:55 37.2 09/01/20 15:00 75 17 137/55 (82) 96 Room Air 09/01/20 14:35 Room Air 09/01/20 14:35 36.5 18 128/68 (88) 94 Room Air 09/01/20 14:30 20 124/65 (84) 93 Room Air 09/01/20 14:26 Room Air 09/01/20 14:21 Room Air 09/01/20 14:20 18 124/64 (84) 99 Room Air 09/01/20 14:10 18 141/66 (91) 100 OxyMask 3 09/01/20 14:07 OxyMask 6 09/01/20 14:00 18 135/68 (90) 99 OxyMask 6 09/01/20 14:00 OxyMask 6 09/01/20 13:50 18 126/62 (83) 98 OxyMask 6 09/01/20 13:45 36.3 18 139/68 (91) 95 OxyMask 6 09/01/20 13:45 OxyMask 6 I & O 09/02/20 07:00 Intake Total 300 ml Balance 300 ml Capillary Refill : General Appearance: No Apparent Distress, Obese HEENT: PERRL/EOMI Respiratory: Chest Non Tender, Lungs Clear, Normal Breath Sounds, No Accessory Muscle Use, No Respiratory Distress Cardiovascular: Regular Rate, Rhythm, No Murmur, Other (1+ pulses bilateral LE (palpated dp on right, pt on left)) Extremity: Pedal Edema (1+ nonpitting on left lower extremity, unchanged compared to yesterday 08/31. No RLE edema. ), Other (Dorsal aspect of right great toe has an encrusted ulceration without surrounding erythema. Left foot has some purplish tissue around the edges, no obvious black necrotic tissue in wound base, although there does appear to be some fat or fascia) Neurologic/Psychiatric: Alert, Oriented x3 Results Lab Laboratory Tests 09/01/20 16:37: Glucometer 211H 09/01/20 18:09: Glucometer 176H 09/01/20 21:49: Glucometer 186H 09/02/20 03:28: White Blood Count 5.4, Red Blood Count 3.54L, Hemoglobin 9.8L, Hematocrit 30L, Mean Corpuscular Volume 85, Mean Corpuscular Hemoglobin 28, Mean Corpuscular Hemoglobin Concent 33, Red Cell Distribution Width 13.0, Platelet Count 293, Mean Platelet Volume 9.6, Immature Granulocyte % (Auto) 7, Neutrophils (%) (Auto) 51, Lymphocytes (%) (Auto) 27, Monocytes (%) (Auto) 10, Eosinophils (%) (Auto) 5, Basophils (%) (Auto) 1, Neutrophils # (Auto) 2.8, Lymphocytes # (Auto) 1.5, Monocytes # (Auto) 0.5, Eosinophils # (Auto) 0.3, Basophils # (Auto) 0.0, Immature Granulocyte # (Auto) 0.4H, Sodium Level 139, Potassium Level 3.4L, Chloride Level 105, Carbon Dioxide Level 21, Anion Gap 13, Blood Urea Nitrogen 8, Creatinine 0.59L, Estimat Glomerular Filtration Rate > 60, BUN/Creatinine Ratio 14, Glucose Level 190H, Calcium Level 8.4L, Phosphorus Level 4.5, Magnesium Level 1.5L 09/02/20 09:57: Vancomycin Level Trough 17.0 Microbiology 09/01/20 Gram Stain - Final, Resulted 09/01/20 Anaerobic Culture, Resulted Pending 09/01/20 Surgical Culture - Preliminary, Resulted Mixed Bacterial Evelin Strep agalactiae Group B 08/31/20 MRSA Screen - Final, Complete MRSA not isolated 08/29/20 Blood Culture - Preliminary, Resulted No growth Assessment/Plan Assessment/Plan Assessment/Plan S/P Debridement of Necrotic Tissue left foot - plan to place wound VAC and then recheck on Saturday Right 1st toe - probably needs shaving of callus to get down to underneath tissue, wound care will try some Med-honey to loosen tissue up DM -uncontrolled; place on diabetic diet and restart LAKISHA Luis DO Sep 02, 2020 12:20
[2020-09-02] MEDS: ENOXAPARIN 40 MG/0.4 ML (LOVENOX) SYR SC SCH (16:31)
[2020-09-02] MEDS ORDERED: WATER (STERILE) FOR INJECTION 20 ML ONE (17:16)
[2020-09-02] MEDS ORDERED: cefTRIAXone 2 GM/20 ML for IV (ROCEPHIN) ONE (17:16)
[2020-09-02] MEDS: cefTRIAXone FOR IV USE 2,000 MG in WATER (STERILE) FOR INJECTION 20 ML IV SCH (17:41)
--- NOTE | 2020-09-02 19:40 | OPERATIVE REPORT ---
DATE OF SERVICE: 09/01/2020 PREOPERATIVE DIAGNOSIS: Necrotic tissue, left foot. POSTOPERATIVE DIAGNOSIS: Necrotic tissue, left foot, pending pathology. PROCEDURE: Debridement of necrotic tissue measuring approximately 8.5 x 4.6 cm including skin, fascia and muscle. SURGEON: Shaun Jules DO RECONCILIATION SPECIALIST: Eren Patterson, MS3 ANESTHESIA: LMA. SPECIMEN: Necrotic tissue. FLUIDS: Per anesthesia. POSTOPERATIVE CONDITION: Stable. INDICATION FOR PROCEDURE: The patient is a 65-year-old female who unfortunately has uncontrolled diabetes, noncompliant with meds and had an ulcer on the bottom of her foot, right in the ball of the foot at the fifth toe, which then all of this developed into an abscess that had gone all the way through the top of her foot. Just prior to the case, she developed AFib with RVR, so the case was put on hold and then she was able to get cardiology clearance and was able to have surgery. FINDINGS: The patient had necrotic tissue down to muscle fascia, tendons, unsure whether went into the bone or not and went all the way through from the top of the foot just lateral to the fifth toe and all the way to the bottom. PROCEDURE NOTE: After informed consent was obtained, the patient was brought to the operating room. She was placed on the operating table in supine position. She was sterilely prepped and draped in normal fashion. Local lidocaine was used to perform an ankle block and foot block and then using a sharp dissection with Bovie electrocautery. I started cutting off the necrotic tissue on the top of the foot, used the cautery on the cut to cut this off down through the skin into the subcutaneous fat. This went into the fascia and taking the portion of the muscle on top of the foot and all the tissue was taken off, this measured about 8.5 x 4 long x about 4.6 wide. It did go from the top of her foot all the way to the bottom the ball of the foot to take off the necrotic tissue, then roughly debrided this with 4 x 4s, then copiously irrigated with normal saline. Hemostasis obtained. Debrided down to fresh tissue until we got a little bit of bleeding and the skin edges and at this point, then elected to pack the open wound with iodoform packing and then placed Kerlix wrap and then Coban around it. The patient tolerated the procedure. Sponge, instrument and needle count correct at the end of the case. Job ID: [id number] DocumentID: [id number] Dictated Date: 09/02/2020 14:01:39 Machine Greaser Date: 09/02/2020 19:40:17 Dictated By: DO KLAUS IZAGUIRRE
[2020-09-02] MEDS: SERTRALINE 50 MG (ZOLOFT) TABLET PO SCH (20:49)
[2020-09-02] MEDS: ALPRAZolam 0.25 MG (XANAX) TAB PO PRN (20:49)
[2020-09-03] VITALS: BP 178/75
[2020-09-03] MEDS: VANCOMYCIN 1,750 MG/NS 500 ML IVPB IV SCH ×2 (00:40)
[2020-09-03 03:00] LABS: BASOPHILS % (AUTO) 0 % (0-10); EOSINOPHILS # (AUTO) 0.3 10^3/uL (0.0-0.3); EOSINOPHILS % (AUTO) 4 % (0-10); HEMATOCRIT 31 % (35-52); HEMOGLOBIN 9.8 g/dL (11.5-16.0); LYMPHOCYTES # (AUTO) 1.4 10^3/uL (1.0-4.0); LYMPHOCYTES % (AUTO) 20 % (12-44); MEAN CORPUSCULAR HEMOGLOBIN 27 pg (25-34); MEAN CORPUSCULAR HGB CONC 32 g/dL (32-36); MEAN CORPUSCULAR VOLUME 85 fL (80-99); MONOCYTES # (AUTO) 0.5 10^3/uL (0.0-1.0); MONOCYTES % (AUTO) 7 % (0-12); NEUTROPHILS # (AUTO) 4.1 10^3/uL (1.8-7.8); NEUTROPHILS % (AUTO) 61 % (42-75); PLATELET COUNT 343 10^3/uL (130-400); WHITE BLOOD COUNT 6.8 10^3/uL (4.3-11.0)
[2020-09-03 03:14] LABS: CHLORIDE 104 MMOL/L (98-107); POTASSIUM 3.6 MMOL/L (3.6-5.0); SODIUM 138 MMOL/L (135-145)
[2020-09-03 03:15] LABS: CALCIUM 8.6 MG/DL (8.5-10.1)
[2020-09-03 03:16] LABS: GLUCOSE 228 MG/DL (70-105)
[2020-09-03 03:17] LABS: CARBON DIOXIDE 21 MMOL/L (21-32)
[2020-09-03 03:19] LABS: PHOSPHORUS 3.8 MG/DL (2.3-4.7)
[2020-09-03 03:20] LABS: BUN/CREATININE RATIO 14; CREATININE SERUM 0.69 MG/DL (0.60-1.30); GFR ESTIMATED > 60
[2020-09-03 03:22] LABS: MAGNESIUM 1.3 MG/DL (1.6-2.4)
[2020-09-03 04:00] VITALS: BP 181/55
[2020-09-03] MEDS: inSUlin ASPART (NovoLOG) 1 UNIT/0.01 ML (CHARGE PER UNIT) SC SCH ×4 (05:58→21:23)
[2020-09-03] MEDS: POTASSIUM CL 10MEQ/50ML IVPB 50 ML IV SCH (06:04)
[2020-09-03] MEDS: MAGNESIUM 1 GM/100 ML IVPB 100 ML IV SCH ×5 (06:04→11:28)
[2020-09-03] MEDS: KCL 20 MEQ TAB (K-DUR) PO SCH (06:05)
--- NOTE | 2020-09-03 07:01 | Progress Note ---
Subjective Subjective Date Seen by Provider: Sep 03, 2020 Time Seen by Provider: 06:20 Pt comfortable sitting up in bed. Foot erythema appears to be decreasing and wound vac in place and functioning well. Reports she is regaining movement and strength in her foot. Says she has had increased stress due to her daughter being in the hospital with covid. Reports difficulty sleeping well and staying asleep. Pt eating well. Complains of increasing blood pressure, but no new symptoms related to HTN. No new complaints related to foot wound. Denies n/v/fever/chills/sob/cp. Review of Systems HEENT: No Head Aches Pulmonary: No Dyspnea, No Cough Cardiovascular: No: Chest Pain, Palpitations Gastrointestinal: No: Nausea, Vomiting, Abdominal Pain Genitourinary: No Dysuria Musculoskeletal: leg pain, foot pain (LEFT) Neurological: Weakness; No: Confusion All Other Systems Reviewed All Other Systems Reviewed: Yes Objective Exam Vital Signs Vital Signs - First Documented 08/29/20 08/29/20 09/01/20 15:30 16:00 10:32 Temp 36.6 Pulse 70 Resp 18 B/P (MAP) 128/58 (81) Pulse Ox 97 O2 Delivery Room Air O2 Flow Rate 3 Capillary Refill : General Appearance: No Apparent Distress, Obese Eyes: Bilateral Eye Normal Inspection, Bilateral Eye PERRL, Bilateral Eye EOMI HEENT: PERRL/EOMI Neck: Normal Inspection Respiratory: Chest Non Tender, Lungs Clear, Normal Breath Sounds, No Accessory Muscle Use, No Respiratory Distress Cardiovascular: Regular Rate, Rhythm, No Murmur, Other Gastrointestinal: Soft Rectal: Deferred Back: No Vertebral Tenderness Extremity: Pedal Edema, Other Neurologic/Psychiatric: Alert, Oriented x3 Results Lab Laboratory Tests 09/02/20 09:57: Vancomycin Level Trough 17.0 09/02/20 14:05: Glucometer 165H 09/02/20 15:44: Glucometer 185H 09/02/20 20:29: Glucometer 223H 09/03/20 01:52: White Blood Count 6.8, Red Blood Count 3.61L, Hemoglobin 9.8L, Hematocrit 31L, Mean Corpuscular Volume 85, Mean Corpuscular Hemoglobin 27, Mean Corpuscular Hemoglobin Concent 32, Red Cell Distribution Width 12.9, Platelet Count 343, Mean Platelet Volume 10.0, Immature Granulocyte % (Auto) 8, Neutrophils (%) (Auto) 61, Lymphocytes (%) (Auto) 20, Monocytes (%) (Auto) 7, Eosinophils (%) (Auto) 4, Basophils (%) (Auto) 0, Neutrophils # (Auto) 4.1, Lymphocytes # (Auto) 1.4, Monocytes # (Auto) 0.5, Eosinophils # (Auto) 0.3, Basophils # (Auto) 0.0, Immature Granulocyte # (Auto) 0.5H, Sodium Level 138, Potassium Level 3.6, Chloride Level 104, Carbon Dioxide Level 21, Anion Gap 13, Blood Urea Nitrogen 10, Creatinine 0.69, Estimat Glomerular Filtration Rate > 60, BUN/Creatinine R atio 14, Glucose Level 228H, Calcium Level 8.6, Phosphorus Level 3.8, Magnesium Level 1.3L 09/03/20 05:34: Glucometer 229H Microbiology 09/01/20 Gram Stain - Final, Resulted 09/01/20 Anaerobic Culture, Resulted Pending 09/01/20 Surgical Culture - Preliminary, Resulted Strep agalactiae Group B 08/31/20 MRSA Screen - Final, Complete MRSA not isolated 08/29/20 Blood Culture - Preliminary, Resulted No growth Assessment/Plan Assessment/Plan Assessment and Plan DIABETIC FOOT ULCER LEFT FOOT CELLULITIS LEFT FOOT HYPONATREMIA ULCERATION RIGHT TOE UNCONTROLLED DIABETES MELLITUS HYPERTENSION HYPERLIPIDEMIA DEPRESSION ANEMIA MEDICATION NONCOMPLIANCE DUE TO FINANCIAL HARDSHIP DIABETIC FOOT ULCER LEFT FOOT WITH CELLULITIS LEFT FOOT - S/P SURGICAL INTERVENTION - WITH POSSIBLE RE-EVAL AND POSSIBLY REPEAT SURGERY TODAY. - IMAGING REPORT FOLLOWS: XRAY LEFT FOOT - Extensive soft tissue gas over the lateral portion of the foot centered near the 5th MTP joint. The findings are compatible with ce llulitis. I do not see definite bony erosion, MRI may be helpful for further evaluation. There are underlying degenerative findings as above. - SUSPECT GAS GANGRENE - PT INITIATED ON IV VANCOMYCIN WELL IV ROCEPHIN, WILL MONITOR CULTURE REPORT OF WOUND WELL BLOOD CULTURE REPORT. - see below for bone scan report BONE SCAN 3 PHASE INDICATION: Left foot diabetic ulcer. FINDINGS: There appears to be asymmetric increased blood flow to the left foot on the blood flow images. There is also some generalized soft tissue uptake on the blood pool images. There is some blood pool activity in the right great toe as well in addition to some increased blood flow to the right great toe. Delayed images just show some generalized uptake in the mid feet bilaterally which may be degenerative. No focus of tracer accumulation is seen to suggest a potential site of osteomyelitis. IMPRESSION: There is increased blood flow and blood pool activity in the region of the right great toe and throughout the left foot, likely owing to cellulitis. No definite three-phase abnormality is seen to suggest osteomyelitis. Dictated on workstation # [id number] Dict: 08/30/20 1610 Trans: 08/30/20 1625 [id number] HYPONATREMIA - DUE TO DM AND ACUTE ILLNESS - MONITOR LABS - IV FLUIDS WITH NORMAL SALINE. - SODIUM LEVELS IMPROVED ULCERATION RIGHT TOE - DRESSING TO TOE, MONITOR FOR FURTHER SYMPTOMS OF CELLULITIS OF THE GREAT TOE - BONE SCAN DID NOT REVEAL OSTEOMYELITIS UNCONTROLLED DIABETES MELLITUS - HOLD GLIPIZIDE AND METFORMIN - START ON LEVEMIR IN HOSPITAL WELL SLIDING SCALE B - DOSE OF LEVEMIR INCREASED TO 15 UNITS - CHECK HGBA1C HYPERTENSION - STARTED VALSARTAN AND BETA QUYNH, MONITOR PRESSURES. HYPERLIPIDEMIA - STARTED LIPITOR 20MG DAILY DEPRESSION - MULTI FACTORIAL - DTR IN HOSPITAL WITH COVID, FINANCIAL STRESS, ETC, WILL RESUME SSRI. ANEMIA - ANEMIA OF CHRONIC DISEASE, MONITOR LABS WITH HYDRATION. MEDICATION NONCOMPLIANCE DUE TO FINANCIAL HARDSHIP - WILL SEE IF DRIVER/MERCHANDISER CAN HELP ON DC. DVT PROPHYLAXIS WITH LOVENOX AND SCDS, GI PROPHYLAXIS WITH PPI AND PROBIOTICS. SURGERY WILL CONTINUE TO MONITOR WOUND HEALING PROGRESS. Supervisory-Addendum Brief Verification & Attestation Participated in pt care: history, MDM, physical Personally performed: exam, history, MDM, supervision of care Care discussed with: Medical Student Procedures: n/a Results interpretation: Verified all documentation I AGREE WITH MEDICAL STUDENT NOTE DOCUMENTED, I HAVE PERSONALLY INTERVIEWED, EXAMINED AND FORMULATED A PLAN ON THE PATIENT. OTHER THAN THE FOLLOWING CHANGES, MY PLAN IS IN AGREEMENT WITH STUDENT NOTE. DUE TO ELEVATED FSBS, WE WILL INCREASE HER LEVEMIR TO 18 UNITS SC NIGHTLY AND ON SATURDAY IF HER FSBS ARE STILL ELEVATED, WILL INCREASE FURTHER. I WILL HAVE DRIVER/MERCHANDISER WORK ON WOUND VAC AND IV ANTIBIOTIC SET UP OUTPATIENT. SHAUN KING MED STUDENT Sep 03, 2020 07:01 VALERIE SCHULTE MD Sep 03, 2020 10:37
[2020-09-03 08:00] VITALS: BP 196/80
[2020-09-03] MEDS ORDERED: KCL 20 MEQ TAB (K-DUR) PO ONE (08:00)
[2020-09-03] MEDS: LACTOBACILLUS ACIDOPHILUS (PROBIOTIC) CAPSULE PO SCH ×3 (08:03→16:48)
[2020-09-03] MEDS: VALSARTAN 80 MG (DIOVAN) TAB PO SCH (08:03)
[2020-09-03] MEDS: BISOPROLOL 5 MG TAB (ZEBETA) PO SCH (08:03)
[2020-09-03] MEDS: LORATADINE (CLARITIN) 10 MG TAB PO SCH (08:04)
[2020-09-03] MEDS: PANTOPRAZOLE 40 MG (PROTONIX) TAB PO SCH (08:04)
[2020-09-03] MEDS: BETAMETHASONE DIPRO (AUGMENTED) 0.05% OINT 15 GM TOP SCH ×2 (09:25→21:23)
[2020-09-03] MEDS: NS IV 1000 ML 1,000 ML IV SCH (09:25)
[2020-09-03] MEDS ORDERED: VALSARTAN 80 MG (DIOVAN) TAB PO NR (09:30)
[2020-09-03] MEDS: ACETAMINOPHEN 500 MG TAB (TYLENOL) PO PRN ×2 (11:31→20:34)
[2020-09-03 12:00] VITALS: BP 172/68
--- NOTE | 2020-09-03 12:18 | Progress Note ---
Subjective Date Seen by a Provider: Sep 03, 2020 Time Seen by a Provider: 11:00 Subjective/Events-last exam doing well. no complaints. wound vac in place with minimal redness/eryt sandra/swelling. Objective Exam Vital Signs Date Time Temp Pulse Resp B/P (MAP) Pulse Ox O2 Delivery O2 Flow Rate FiO2 09/03/20 12:00 36.2 61 20 172/68 (102) 94 Room Air 09/03/20 08:00 94 Room Air 09/03/20 08:00 36.0 69 16 196/80 (118) 94 Room Air 09/03/20 07:00 69 09/03/20 04:00 36.2 69 18 181/55 (97) 93 Room Air 09/03/20 01:00 70 09/03/20 00:00 36.5 72 18 178/75 (109) 96 Room Air 09/02/20 20:00 Room Air 09/02/20 20:00 36.4 70 18 154/71 (98) 98 Room Air 09/02/20 19:00 75 09/02/20 15:39 36.5 74 18 163/71 (101) 96 Room Air 09/02/20 14:48 36.2 20 171/74 (106) 94 Room Air 09/02/20 12:34 63 I & O 09/03/20 07:00 Intake Total 1647.5 ml Balance 1647.5 ml Capillary Refill : General Appearance: No Apparent Distress HEENT: PERRL/EOMI Neck: Full Range of Motion Respiratory: Chest Non Tender, Lungs Clear Cardiovascular: Regular Rate, Rhythm Gastrointestinal: normal bowel sounds, non tender, soft Extremity: Normal Capillary Refill Neurologic/Psychiatric: Alert, Oriented x3 Skin: Normal Color Lymphatic: No Adenopathy Results Lab Laboratory Tests 09/02/20 14:05: Glucometer 165H 09/02/20 15:44: Glucometer 185H 09/02/20 20:29: Glucometer 223H 09/03/20 01:52: White Blood Count 6.8, Red Blood Count 3.61L, Hemoglobin 9.8L, Hematocrit 31L, Mean Corpuscular Volume 85, Mean Corpuscular Hemoglobin 27, Mean Corpuscular Hemoglobin Concent 32, Red Cell Distribution Width 12.9, Platelet Count 343, Mean Platelet Volume 10.0, Immature Granulocyte % (Auto) 8, Neutrophils (%) (Auto) 61, Lymphocytes (%) (Auto) 20, Monocytes (%) (Auto) 7, Eosinophils (%) (Auto) 4, Basophils (%) (Auto) 0, Neutrophils # (Auto) 4.1, Lymphocytes # (Auto) 1.4, Monocytes # (Auto) 0.5, Eosinophils # (Auto) 0.3, Basophils # (Auto) 0.0, Immature Granulocyte # (Auto) 0.5H, Sodium Level 138, Potassium Level 3.6, Chloride Level 104, Carbon Dioxide Level 21, Anion Gap 13, Blood Urea Nitrogen 10, Creatinine 0.69, Estimat Glomerular Filtration Rate > 60, BUN/Creatinine Ratio 14, Glucose Level 228H, Calcium Level 8.6, Phosphorus Level 3.8, Magnesium Level 1.3L 09/03/20 05:34: Glucometer 229H 09/03/20 10:33: Glucometer 206H Microbiology 09/01/20 Gram Stain - Final, Resulted 09/01/20 Anaerobic Culture, Resulted Pending 09/01/20 Surgical Culture - Preliminary, Resulted Strep agalactiae Group B Escherichia coli Mixed Bacterial Evelin 08/31/20 MRSA Screen - Final, Complete MRSA not isolated 08/29/20 Blood Culture - Preliminary, Resulted No growth Assessment/Plan Assessment/Plan Assess & Plan/Chief Complaint diabetic left forefoot necrosis s/p debridement. wound appears to be healing well. cont IV abx. IRMA HOWARD MD Sep 03, 2020 12:17
[2020-09-03 16:00] VITALS: BP 188/92
[2020-09-03] MEDS: ENOXAPARIN 40 MG/0.4 ML (LOVENOX) SYR SC SCH (16:44)
[2020-09-03 20:00] VITALS: BP 144/67
[2020-09-03] MEDS: SERTRALINE 50 MG (ZOLOFT) TABLET PO SCH (20:33)
[2020-09-04] VITALS (7 sets, daily range): BP systolic 162–195; BP diastolic 71–83
[2020-09-04] MEDS: NS IV 1000 ML 1,000 ML IV SCH ×2 (00:46→16:09)
[2020-09-04 03:57] LABS: BASOPHILS % (AUTO) 1 % (0-10); EOSINOPHILS # (AUTO) 0.4 10^3/uL (0.0-0.3); EOSINOPHILS % (AUTO) 5 % (0-10); HEMATOCRIT 31 % (35-52); HEMOGLOBIN 9.9 g/dL (11.5-16.0); LYMPHOCYTES # (AUTO) 1.7 10^3/uL (1.0-4.0); LYMPHOCYTES % (AUTO) 22 % (12-44); MEAN CORPUSCULAR HEMOGLOBIN 27 pg (25-34); MEAN CORPUSCULAR HGB CONC 32 g/dL (32-36); MEAN CORPUSCULAR VOLUME 85 fL (80-99); MEAN PLATELET VOLUME 9.7 fL (9.0-12.2); MONOCYTES # (AUTO) 0.4 10^3/uL (0.0-1.0); MONOCYTES % (AUTO) 6 % (0-12); NEUTROPHILS # (AUTO) 4.7 10^3/uL (1.8-7.8); NEUTROPHILS % (AUTO) 60 % (42-75); PLATELET COUNT 337 10^3/uL (130-400); WHITE BLOOD COUNT 7.8 10^3/uL (4.3-11.0)
[2020-09-04 04:14] LABS: CHLORIDE 105 MMOL/L (98-107); POTASSIUM 3.8 MMOL/L (3.6-5.0); SODIUM 140 MMOL/L (135-145)
[2020-09-04 04:15] LABS: CALCIUM 8.6 MG/DL (8.5-10.1); GLUCOSE 182 MG/DL (70-105)
[2020-09-04 04:17] LABS: CARBON DIOXIDE 22 MMOL/L (21-32)
[2020-09-04 04:19] LABS: CREATININE SERUM 0.64 MG/DL (0.60-1.30); GFR ESTIMATED > 60; PHOSPHORUS 4.3 MG/DL (2.3-4.7)
[2020-09-04 04:20] LABS: BUN/CREATININE RATIO 11
[2020-09-04 04:21] LABS: MAGNESIUM 1.7 MG/DL (1.6-2.4)
[2020-09-04] MEDS: ACETAMINOPHEN 500 MG TAB (TYLENOL) PO PRN ×2 (04:41→19:50)
[2020-09-04] MEDS: MAGNESIUM 1 GM/100 ML IVPB 100 ML IV SCH ×3 (05:18→09:04)
[2020-09-04] MEDS: POTASSIUM CL 10MEQ/50ML IVPB 50 ML IV SCH (05:18)
[2020-09-04] MEDS: KCL 20 MEQ TAB (K-DUR) PO SCH (05:19)
[2020-09-04] MEDS: inSUlin ASPART (NovoLOG) 1 UNIT/0.01 ML (CHARGE PER UNIT) SC SCH ×4 (05:46→21:56)
--- NOTE | 2020-09-04 07:20 | Progress Note ---
Subjective Subjective Date Seen by Provider: Sep 04, 2020 Time Seen by Provider: 06:40 Pt comfortable sitting up in chair. Foot erythema appears to be decreasing and wound vac in place and functioning well. Headaches are controlled with tylenol and she has been sleeping better. No BM in a couple days but no abdominal pain/n/v associated with this. Blood pressure still poorly controlled throughout the day yesterday. Denies n/v/fever/chills/sob/cp. Review of Systems HEENT: No Head Aches Pulmonary: No Dyspnea, No Cough Cardiovascular: No: Chest Pain, Palpitations Gastrointestinal: Constipation; No: Nausea, Vomiting, Abdominal Pain Genitourinary: No Dysuria Musculoskeletal: leg pain, foot pain (LEFT) Neurological: Weakness; No: Confusion All Other Systems Reviewed All Other Systems Reviewed: Yes Objective Exam Vital Signs Vital Signs - First Documented 08/29/20 08/29/20 09/01/20 15:30 16:00 10:32 Temp 36.6 Pulse 70 Resp 18 B/P (MAP) 128/58 (81) Pulse Ox 97 O2 Delivery Room Air O2 Flow Rate 3 Capillary Refill : General Appearance: No Apparent Distress Eyes: Bilateral Eye Normal Inspection, Bilateral Eye PERRL, Bilateral Eye EOMI HEENT: PERRL/EOMI Neck: Full Range of Motion Respiratory: Chest Non Tender, Lungs Clear Cardiovascular: Regular Rate, Rhythm Gastrointestinal: Soft Rectal: Deferred Back: No Vertebral Tenderness Extremity: Normal Capillary Refill Neurologic/Psychiatric: Alert, Oriented x3 Skin: Normal Color Lymphatic: No Adenopathy Results Lab Laboratory Tests 09/03/20 10:33: Glucometer 206H 09/03/20 16:16: Glucometer 260H 09/03/20 20:27: Glucometer 176H 09/04/20 03:25: White Blood Count 7.8, Red Blood Count 3.63L, Hemoglobin 9.9L, Hematocrit 31L, Mean Corpuscular Volume 85, Mean Corpuscular Hemoglobin 27, Mean Corpuscular Hemoglobin Concent 32, Red Cell Distribution Width 13.0, Platelet Count 337, Mean Platelet Volume 9.7, Immature Granulocyte % (Auto) 7, Neutrophils (%) (Auto) 60, Lymphocytes (%) (Auto) 22, Monocytes (%) (Auto) 6, Eosinophils (%) (Auto) 5, Basophils (%) (Auto) 1, Neutrophils # (Auto) 4.7, Lymphocytes # (Auto) 1.7, Monocytes # (Auto) 0.4, Eosinophils # (Auto) 0.4H, Basophils # (Auto) 0.0, Immature Granulocyte # (Auto) 0.6H, Sodium Level 140, Potassium Level 3.8, Chloride Level 105, Carbon Dioxide Level 22, Anion Gap 13, Blood Urea Nitrogen 7, Creatinine 0.64, Estimat Glomerular Filtration Rate > 60, BUN/Creatinine Ratio 11, Glucose Level 182H, Calcium Level 8.6, Phosphorus Level 4.3, Magnesium Level 1.7 09/04/20 05:41: Glucometer 208H Microbiology 09/01/20 Gram Stain - Final, Resulted 09/01/20 Anaerobic Culture, Resulted Pending 09/01/20 Surgical Culture - Preliminary, Resulted Strep agalactiae Group B Escherichia coli Mixed Bacterial Evelin 08/31/20 MRSA Screen - Final, Complete MRSA not isolated 08/29/20 Blood Culture - Preliminary, Resulted No growth Assessment/Plan Assessment/Plan Assessment and Plan DIABETIC FOOT ULCER LEFT FOOT CELLULITIS LEFT FOOT HYPONATREMIA ULCERATION RIGHT TOE UNCONTROLLED DIABETES MELLITUS HYPERTENSION HYPERLIPIDEMIA DEPRESSION ANEMIA MEDICATION NONCOMPLIANCE DUE TO FINANCIAL HARDSHIP CONSTIPATION DIABETIC FOOT ULCER LEFT FOOT WITH CELLULITIS LEFT FOOT - S/P SURGICAL INTERVENTION - IMAGING REPORT FOLLOWS: XRAY LEFT FOOT - Extensive soft tissue gas over the lateral portion of the foot centered near the 5th MTP joint. The findings are compatible with cellulitis. I do not see definite bony erosion, MRI may be helpful for further evaluation. There are underlying degenerative findings as above. - SUSPECT GAS GANGRENE - PT INITIATED ON IV VANCOMYCIN WELL IV ROCEPHIN, WILL MONITOR CULTURE REPORT OF WOUND WELL BLOOD CULTURE REPORT. - see below for bone scan report BONE SCAN 3 PHASE INDICATION: Left foot diabetic ulcer. FINDINGS: There appears to be asymmetric increased blood flow to the left foot on the blood flow images. There is also some generalized soft tissue uptake on the blood pool images. There is some blood pool activity in the right great toe as well in addition to some increased blood flow to the right great toe. Delayed images just show some generalized uptake in the mid feet bilaterally which may be degenerative. No focus of tracer accumulation is seen to suggest a potential site of osteomyelitis. IMPRESSION: There is increased blood flow and blood pool activity in the region of the right great toe and throughout the left foot, likely owing to cellulitis. No definite three-phase abnormality is seen to suggest osteomyelitis. Dictated on workstation # [id number] Dict: 08/30/20 1610 Trans: 08/30/20 1625 [id number] HYPONATREMIA - DUE TO DM AND ACUTE ILLNESS - MONITOR LABS - IV FLUIDS WITH NORMAL SALINE. - SODIUM LEVELS IMPROVED ULCERATION RIGHT TOE - DRESSING TO TOE, MONITOR FOR FURTHER SYMPTOMS OF CELLULITIS OF THE GREAT TOE - BONE SCAN DID NOT REVEAL OSTEOMYELITIS UNCONTROLLED DIABETES MELLITUS - HOLD GLIPIZIDE AND METFORMIN - START ON LEVEMIR IN HOSPITAL WELL SLIDING SCALE B - DOSE OF LEVEMIR INCREASED TO 15 UNITS - CHECK HGBA1C HYPERTENSION - STARTED VALSARTAN AND BETA QUYNH, MONITOR PRESSURES. - HYDRALAZINE Q8 HYPERLIPIDEMIA - STARTED LIPITOR 20MG DAILY DEPRESSION - MULTI FACTORIAL - DTR IN HOSPITAL WITH COVID, FINANCIAL STRESS, ETC, WILL RESUME SSRI. ANEMIA - ANEMIA OF CHRONIC DISEASE, MONITOR LABS WITH HYDRATION. MEDICATION NONCOMPLIANCE DUE TO FINANCIAL HARDSHIP - WILL SEE IF DIE TROUBLE SHOOTER CAN HELP ON DC. CONSTIPATION -MIRALAX TODAY IF SHE DOES NOT HAVE BM BY THIS AFTERNOON DVT PROPHYLAXIS WITH LOVENOX AND SCDS, GI PROPHYLAXIS WITH PPI AND PROBIOTICS. SURGERY WILL CONTINUE TO MONITOR WOUND HEALING PROGRESS. Supervisory-Addendum Brief Verification & Attestation Participated in pt care: history, MDM, physical Personally performed: exam, history, MDM, supervision of care Care discussed with: Medical Student Procedures: n/a Results interpretation: Verified all documentation AGREE WITH STUDENT NOTE DOCUMENTED PLAN FOR RE-EVAL BY DR. LLAMAS TOMORROW TO DETERMINE NEXT STEPS - EITHER REPEAT INTERVENTION VERSUS CONTINUED WOUND VAC. DR. ROJAS TO SEE PT TOMORROW ABOUT THE CALLUSES ON HER RIGHT FOOT - GREAT TOE AND BASE OF 5TH METATARSAL CONTINUE WITH IV ANTIBIOTICS, MONITOR SYMPTOMS. SHAUN KING MED STUDENT Sep 04, 2020 07:20 VALERIE SCHULTE MD Sep 04, 2020 15:27
[2020-09-04] MEDS: LORATADINE (CLARITIN) 10 MG TAB PO SCH (08:22)
[2020-09-04] MEDS: PANTOPRAZOLE 40 MG (PROTONIX) TAB PO SCH (08:23)
[2020-09-04] MEDS: LACTOBACILLUS ACIDOPHILUS (PROBIOTIC) CAPSULE PO SCH ×3 (08:23→17:58)
[2020-09-04] MEDS: BISOPROLOL 5 MG TAB (ZEBETA) PO SCH (08:23)
[2020-09-04] MEDS ORDERED: VALSARTAN 80 MG (DIOVAN) TAB PO SCH (09:00)
[2020-09-04] MEDS: BETAMETHASONE DIPRO (AUGMENTED) 0.05% OINT 15 GM TOP SCH ×2 (09:02→19:43)
--- NOTE | 2020-09-04 10:20 | Progress Note ---
Subjective Date Seen by a Provider: Sep 04, 2020 Time Seen by a Provider: 09:30 Subjective/Events-last exam Patient seen with Dr. Martinez. Patient reports doing well with no complaints. Wound vac in place to left foot. Objective Exam Vital Signs Date Time Temp Pulse Resp B/P (MAP) Pulse Ox O2 Delivery O2 Flow Rate FiO2 09/04/20 08:00 36.0 68 20 195/81 (119) 97 Room Air 09/04/20 08:00 94 Room Air 09/04/20 07:00 67 09/04/20 04:00 36.1 68 18 175/71 (105) 97 Room Air 09/04/20 01:00 63 09/04/20 00:00 36.5 68 18 162/71 (101) 95 NIV CPAP 09/03/20 20:00 36.2 69 18 144/67 (92) 94 Room Air 09/03/20 20:00 Room Air 09/03/20 19:00 70 09/03/20 16:00 36.0 67 18 188/92 (124) 95 Room Air 09/03/20 12:27 63 09/03/20 12:00 36.2 61 20 172/68 (102) 94 Room Air I & O 09/04/20 07:00 Intake Total 2000 ml Balance 2000 ml Capillary Refill : General Appearance: No Apparent Distress, WD/WN Neck: Normal Inspection, Supple Respiratory: No Accessory Muscle Use, No Respiratory Distress Cardiovascular: Regular Rate, Rhythm, No Edema Gastrointestinal: normal bowel sounds, non tender, soft Extremity: Normal Range of Motion, Other (Wound vac in place to left foot with minimal redness/erythema surrounding wound. 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.) Neurologic/Psychiatric: Alert, Oriented x3 Skin: Normal Color, Warm/Dry Results Lab Laboratory Tests 09/03/20 10:33: Glucometer 206H 09/03/20 16:16: Glucometer 260H 09/03/20 20:27: Glucometer 176H 09/04/20 03:25: White Blood Count 7.8, Red Blood Count 3.63L, Hemoglobin 9.9L, Hematocrit 31L, Mean Corpuscular Volume 85, Mean Corpuscular Hemoglobin 27, Mean Corpuscular Hemoglobin Concent 32, Red Cell Distribution Width 13.0, Platelet Count 337, Mean Platelet Volume 9.7, Immature Granulocyte % (Auto) 7, Neutrophils (%) (Auto) 60, Lymphocytes (%) (Auto) 22, Monocytes (%) (Auto) 6, Eosinophils (%) (Auto) 5, Basophils (%) (Auto) 1, Neutrophils # (Auto) 4.7, Lymphocytes # (Auto) 1.7, Monocytes # (Auto) 0.4, Eosinophils # (Auto) 0.4H, Basophils # (Auto) 0.0, Immature Granulocyte # (Auto) 0.6H, Sodium Level 140, Potassium Level 3.8, Chloride Level 105, Carbon Dioxide Level 22, Anion Gap 13, Blood Urea Nitrogen 7, Creatinine 0.64, Estimat Glomerular Filtration Rate > 60, BUN/Creatinine Ratio 11, Glucose Level 182H, Calcium Level 8.6, Phosphorus Level 4.3, Magnesium Level 1.7 09/04/20 05:41: Glucometer 208H Microbiology 09/01/20 Gram Stain - Final, Resulted 09/01/20 Anaerobic Culture, Resulted Pending 09/01/20 Surgical Culture - Final, Resulted Strep agalactiae Group B Escherichia coli Mixed Bacterial Evelin 08/31/20 MRSA Screen - Final, Complete MRSA not isolated 08/29/20 Blood Culture - Preliminary, Resulted No growth Assessment/Plan Assessment/Plan Assess & Plan/Chief Complaint diabetic left forefoot necrosis s/p debridement. wound appears to be healing well. cont IV abx and wound vac AHSAN LOPEZ TIE WORKER Sep 04, 2020 10:20
[2020-09-04] MEDS: ENOXAPARIN 40 MG/0.4 ML (LOVENOX) SYR SC SCH (15:14)
[2020-09-04] MEDS ORDERED: VALSARTAN 160 MG (DIOVAN) TABLET PO NR (15:30)
[2020-09-04] MEDS: SERTRALINE 50 MG (ZOLOFT) TABLET PO SCH (19:43)
[2020-09-05 03:32] VITALS: BP 175/81
[2020-09-05] MEDS: NS IV 1000 ML 1,000 ML IV SCH ×2 (05:45→18:44)
[2020-09-05] MEDS: ACETAMINOPHEN 500 MG TAB (TYLENOL) PO PRN ×3 (05:46→21:30)
[2020-09-05] MEDS: inSUlin ASPART (NovoLOG) 1 UNIT/0.01 ML (CHARGE PER UNIT) SC SCH ×4 (05:56→21:33)
[2020-09-05 06:25] LABS: BASOPHILS % (AUTO) 1 % (0-10); EOSINOPHILS # (AUTO) 0.3 10^3/uL (0.0-0.3); EOSINOPHILS % (AUTO) 5 % (0-10); HEMATOCRIT 33 % (35-52); HEMOGLOBIN 10.6 g/dL (11.5-16.0); LYMPHOCYTES # (AUTO) 1.4 10^3/uL (1.0-4.0); LYMPHOCYTES % (AUTO) 20 % (12-44); MEAN CORPUSCULAR HEMOGLOBIN 27 pg (25-34); MEAN CORPUSCULAR HGB CONC 32 g/dL (32-36); MEAN CORPUSCULAR VOLUME 85 fL (80-99); MEAN PLATELET VOLUME 9.8 fL (9.0-12.2); MONOCYTES # (AUTO) 0.4 10^3/uL (0.0-1.0); MONOCYTES % (AUTO) 6 % (0-12); NEUTROPHILS # (AUTO) 4.3 10^3/uL (1.8-7.8); NEUTROPHILS % (AUTO) 62 % (42-75); PLATELET COUNT 362 10^3/uL (130-400); WHITE BLOOD COUNT 6.9 10^3/uL (4.3-11.0)
[2020-09-05 06:40] LABS: CHLORIDE 104 MMOL/L (98-107); POTASSIUM 3.9 MMOL/L (3.6-5.0); SODIUM 141 MMOL/L (135-145)
[2020-09-05 06:42] LABS: CALCIUM 9.1 MG/DL (8.5-10.1); GLUCOSE 211 MG/DL (70-105)
[2020-09-05 06:44] LABS: CARBON DIOXIDE 25 MMOL/L (21-32)
[2020-09-05 06:46] LABS: CREATININE SERUM 0.69 MG/DL (0.60-1.30); GFR ESTIMATED > 60; PHOSPHORUS 5.1 MG/DL (2.3-4.7); SMEAR SCAN COMMENT YES
[2020-09-05 06:47] LABS: BUN/CREATININE RATIO 9
[2020-09-05 06:48] LABS: MAGNESIUM 1.7 MG/DL (1.6-2.4)
[2020-09-05] MEDS: POTASSIUM CL 10MEQ/50ML IVPB 50 ML IV SCH (06:52)
[2020-09-05] MEDS: KCL 20 MEQ TAB (K-DUR) PO SCH (06:52)
[2020-09-05] MEDS: MAGNESIUM 1 GM/100 ML IVPB 100 ML IV SCH ×3 (06:54→08:55)
--- NOTE | 2020-09-05 07:50 | Progress Note ---
Subjective Subjective Date Seen by Provider: Sep 05, 2020 Time Seen by Provider: 07:25 Pt comfortable sitting up in bed. Foot still erythematous but edema seems to be decreasing. Changing wound vac today and plan to evaluate wound for possible debridement. BM yesterday, prn miralax for constipation. HTN still poorly controlled and she has been having constant headaches which show some improvement with tylenol. She attributes her headaches to stress as her daughter is on a vent with COVID and was life flighted to yesterday. No new complaints. Denies n/v/fever/chills/sob/cp. Review of Systems HEENT: No Head Aches Pulmonary: No Dyspnea, No Cough Cardiovascular: No: Chest Pain, Palpitations Gastrointestinal: No: Nausea, Vomiting, Abdominal Pain Genitourinary: No Dysuria Musculoskeletal: leg pain, foot pain (LEFT) Neurological: Weakness, Other (constant headache); No: Confusion All Other Systems Reviewed All Other Systems Reviewed: Yes Objective Exam Vital Signs Vital Signs - First Documented 08/30/20 09/01/20 00:18 10:32 Temp 37.2 Pulse 89 Resp 16 B/P (MAP) 144/65 (91) Pulse Ox 98 O2 Delivery Room Air O2 Flow Rate 3 Capillary Refill : General Appearance: No Apparent Distress Eyes: Bilateral Eye Normal Inspection, Bilateral Eye PERRL, Bilateral Eye EOMI HEENT: PERRL/EOMI Neck: Full Range of Motion Respiratory: Chest Non Tender, Lungs Clear Cardiovascular: Regular Rate, Rhythm Gastrointestinal: Soft Rectal: Deferred Back: No Vertebral Tenderness Extremity: Normal Capillary Refill Neurologic/Psychiatric: Alert, Oriented x3 Skin: Normal Color Lymphatic: No Adenopathy Results Lab Laboratory Tests 09/04/20 10:29: Glucometer 212H 09/04/20 15:51: Glucometer 237H 09/04/20 20:33: Glucometer 217H 09/05/20 05:25: White Blood Count 6.9, Red Blood Count 3.93, Hemoglobin 10.6L, Hematocrit 33L, Mean Corpuscular Volume 85, Mean Corpuscular Hemoglobin 27, Mean Corpuscular Hemoglobin Concent 32, Red Cell Distribution Width 13.0, Platelet Count 362, Mean Platelet Volume 9.8, Immature Granulocyte % (Auto) 6, Neutrophils (%) (Auto) 62, Lymphocytes (%) (Auto) 20, Monocytes (%) (Auto) 6, Eosinophils (%) (Auto) 5, Basophils (%) (Auto) 1, Neutrophils # (Auto) 4.3, Lymphocytes # (Auto) 1.4, Monocytes # (Auto) 0.4, Eosinophils # (Auto) 0.3, Basophils # (Auto) 0.0, Immature Granulocyte # (Auto) 0.4H, Sodium Level 141, Potassium Level 3.9, Chloride Level 104, Carbon Dioxide Level 25, Anion Gap 12, Blood Urea Nitrogen 6L, Creatinine 0.69, Estimat Glomerular Filtration Rate > 60, BUN/Creatinine Ratio 9, Glucose Level 211H, Calcium Level 9.1, Phosphorus Level 5.1H, Magnesium Level 1.7, Smear Scan YES 09/05/20 05:50: Glucometer 206H Microbiology 09/01/20 Gram Stain - Final, Resulted 09/01/20 Anaerobic Culture, Resulted Pending 09/01/20 Surgical Culture - Final, Resulted Strep agalactiae Group B Escherichia coli Mixed Bacterial Evelin 08/31/20 MRSA Screen - Final, Complete MRSA not isolated 08/29/20 Blood Culture - Final, Complete No growth Assessment/Plan Assessment/Plan Assessment and Plan DIABETIC FOOT ULCER LEFT FOOT CELLULITIS LEFT FOOT HYPONATREMIA ULCERATION RIGHT TOE UNCONTROLLED DIABETES MELLITUS HYPERTENSION HYPERLIPIDEMIA DEPRESSION ANEMIA MEDICATION NONCOMPLIANCE DUE TO FINANCIAL HARDSHIP CONSTIPATION DIABETIC FOOT ULCER LEFT FOOT WITH CELLULITIS LEFT FOOT - S/P SURGICAL INTERVENTION - WITH RE-EVAL AND POSSIBLY REPEAT SURGERY TODAY OR TOMORROW - IMAGING REPORT FOLLOWS: XRAY LEFT FOOT - Extensive soft tissue gas over the lateral portion of the foot centered near the 5th MTP joint. The findings are compatible with cellulitis. I do not see definite bony erosion, MRI may be helpful for further evaluation. There are underlying degenerative findings as above. - SUSPECT GAS GANGRENE - PT INITIATED ON IV VANCOMYCIN WELL IV ROCEPHIN, WILL MONITOR CULTURE REPORT OF WOUND WELL BLOOD CULTURE REPORT. - see below for bone scan report BONE SCAN 3 PHASE INDICATION: Left foot diabetic ulcer. FINDINGS: There appears to be asymmetric increased blood flow to the left foot on the blood flow images. There is also some generalized soft tissue uptake on the blood pool images. There is some blood pool activity in the right great toe as well in addition to some increased blood flow to the right great toe. Delayed images just show some generalized uptake in the mid feet bilaterally which may be degenerative. No focus of tracer accumulation is seen to suggest a potential site of osteomyelitis. IMPRESSION: There is increased blood flow and blood pool activity in the region of the right great toe and throughout the left foot, likely owing to cellulitis. No definite three-phase abnormality is seen to suggest osteomyelitis. Dictated on workstation # [id number] Dict: 08/30/20 1610 Trans: 08/30/20 1625 [id number] HYPONATREMIA - DUE TO DM AND ACUTE ILLNESS - MONITOR LABS - IV FLUIDS WITH NORMAL SALINE. - SODIUM LEVELS IMPROVED ULCERATION RIGHT TOE - DRESSING TO TOE, MONITOR FOR FURTHER SYMPTOMS OF CELLULITIS OF THE GREAT TOE - BONE SCAN DID NOT REVEAL OSTEOMYELITIS UNCONTROLLED DIABETES MELLITUS - TOMORROW WILL RESTART METOFORMIN - POST OPERATIVELY - START ON LEVEMIR IN HOSPITAL WELL SLIDING SCALE B - DOSE OF LEVEMIR INCREASED TO 22 UNITS HYPERTENSION - STARTED VALSARTAN AND BETA QUYNH, MONITOR PRESSURES. - HYDRALAZINE TO BE INCREASED FROM 10MG Q8HR TO 25MG Q8HR HYPERLIPIDEMIA - STARTED LIPITOR 20MG DAILY DEPRESSION - MULTI FACTORIAL - DTR IN HOSPITAL WITH COVID, FINANCIAL STRESS, ETC, WILL RESUME SSRI. ANEMIA - ANEMIA OF CHRONIC DISEASE, MONITOR LABS WITH HYDRATION. MEDICATION NONCOMPLIANCE DUE TO FINANCIAL HARDSHIP - WILL SEE IF CONFERENCE PLANNER CAN HELP ON DC. CONSTIPATION -MIRALAX PRN DVT PROPHYLAXIS WITH LOVENOX AND SCDS, GI PROPHYLAXIS WITH PPI AND PROBIOTICS. SURGERY WILL CONTINUE TO MONITOR WOUND HEALING PROGRESS. Supervisory-Addendum Brief Verification & Attestation Participated in pt care: history, MDM, physical Personally performed: exam, history, MDM, supervision of care Care discussed with: Medical Student Procedures: n/a Results interpretation: Verified all documentation AGREE WITH STUDENT NOTE - I HAVE MODIFIED NOTE TO REFLECT FURTHER DETAILS OF OUR CHANGES MADE TODAY FOR PATIENT'S BLOOD PRESSURE AND BLOOD GLUCOSE CONTROL TO BE MORE AGGRESSIVE WITH CONTROL. DISCUSSION WITH DR. LLAMAS - PT ATE THIS MORNING THEREFORE WE WILL PLAN ON NPO TOMORROW WITH REMOVAL OF WOUND VAC AND POSSIBLE REPEAT SURGICAL INTERVENTION TOMORROW MORNING. SHAUN KING MED STUDENT Sep 05, 2020 07:50 VALERIE SCHULTE MD Sep 05, 2020 17:25
[2020-09-05 08:00] VITALS: BP 169/82
--- NOTE | 2020-09-05 08:35 | Progress Note - Cardiology ---
Cardiology SOAP Progress Note Subjective: No cp or palp or syncope Gen malaise present No shortness of breath at rest No n/v/d Objective: I&O/Vital Signs 09/04/20 09/05/20 09/05/20 09/05/20 23:54 00:57 03:32 07:00 Temp 36.8 36.5 Pulse 67 62 61 68 Resp 20 20 B/P (MAP) 179/81 (113) 175/81 (112) Pulse Ox 98 97 O2 Delivery NIV CPAP NIV CPAP 09/05/20 08:00 Temp 36.1 Pulse 65 Resp 18 B/P (MAP) 169/82 (111) Pulse Ox 97 O2 Delivery Room Air 09/05/20 00:00 Intake Total 1940 ml Balance 1940 ml Constitutional: AAO x 3, well-developed, well-nourished Respiratory: No accessory muscle use; other (good, bilateral air entry) Cardiovascular: regular rate-rhythm, S1 and S2, systolic murmur (soft PA at card base) Gastrointestional: No tender; soft; No guarding; audible bowel sounds Extremities: other (L foot under dressing that was not removed. Some swelling, redness and elevated temp of the L ankle and foot noted); No clubbing, No cyanosis Neurologic/Psychiatric: oriented x 3, other (moves all limbs equally) Skin: No rash on exposed areas, No ulcerations on exposed areas; other (Wound vac on dorsum of L foot) Results/Procedures: Labs Laboratory Tests 09/04/20 10:29: Glucometer 212H 09/04/20 15:51: Glucometer 237H 09/04/20 20:33: Glucometer 217H 09/05/20 05:25: White Blood Count 6.9, Red Blood Count 3.93, Hemoglobin 10.6L, Hematocrit 33L, Mean Corpuscular Volume 85, Mean Corpuscular Hemoglobin 27, Mean Corpuscular Hemoglobin Concent 32, Red Cell Distribution Width 13.0, Platelet Count 362, Mean Platelet Volume 9.8, Immature Granulocyte % (Auto) 6, Neutrophils (%) (Auto) 62, Lymphocytes (%) (Auto) 20, Monocytes (%) (Auto) 6, Eosinophils (%) (Auto) 5, Basophils (%) (Auto) 1, Neutrophils # (Auto) 4.3, Lymphocytes # (Auto) 1.4, Monocytes # (Auto) 0.4, Eosinophils # (Auto) 0.3, Basophils # (Auto) 0.0, Immature Granulocyte # (Auto) 0.4H, Sodium Level 141, Potassium Level 3.9, Chloride Level 104, Carbon Dioxide Level 25, Anion Gap 12, Blood Urea Nitrogen 6L, Creatinine 0.69, Estimat Glomerular Filtration Rate > 60, BUN/Creatinine Ratio 9, Glucose Level 211H, Calcium Level 9.1, Phosphorus Level 5.1H, Magnesium Level 1.7, Smear Scan YES 09/05/20 05:50: Glucometer 206H Microbiology 09/01/20 Gram Stain - Final, Resulted 09/01/20 Anaerobic Culture, Resulted Pending 09/01/20 Surgical Culture - Final, Resulted Strep agalactiae Group B Escherichia coli Mixed Bacterial Evelin 08/31/20 MRSA Screen - Final, Complete MRSA not isolated 08/29/20 Blood Culture - Final, Complete No growth Laboratory Tests 09/04/20 03:25 09/05/20 05:25 A/P: Assessment: PAF with RVR HTN, not well controlled DM II Anemia of undetermined etiology, managed by the Med Svce Diabetic ulcer of dorsum of L foot (last debridement 09/02/20, awaiting reeval by the Surgical Svce) Echo Jun 2014: LVEF normal, AoV sclerosis w/o stenosis, mild MR & TR Plan: * Increase bb * Monitor labs * We recommend full oral anticoag as soon as feasible from a surgical standpoint * Echo MATEO GORDILLO MD FACP FAC CCDS Sep 05, 2020 08:35
[2020-09-05] MEDS: LACTOBACILLUS ACIDOPHILUS (PROBIOTIC) CAPSULE PO SCH ×3 (08:49→17:10)
[2020-09-05] MEDS: VALSARTAN 160 MG (DIOVAN) TABLET PO SCH (08:49)
[2020-09-05] MEDS: BETAMETHASONE DIPRO (AUGMENTED) 0.05% OINT 15 GM TOP SCH ×2 (08:49→20:49)
[2020-09-05] MEDS: BISOPROLOL 5 MG TAB (ZEBETA) PO SCH (08:49)
[2020-09-05] MEDS: LORATADINE (CLARITIN) 10 MG TAB PO SCH (08:49)
[2020-09-05] MEDS: PANTOPRAZOLE 40 MG (PROTONIX) TAB PO SCH (08:55)
[2020-09-05 11:40] VITALS: BP 176/78
[2020-09-05] MEDS: hydrALAZINE (APRESOLINE) 25 MG TAB PO SCH ×2 (13:08→20:50)
--- NOTE | 2020-09-05 13:49 | Progress Note - Surgery ---
Subjective Time Seen by a Provider: 13:19 Subjective/Events-last exam Pt seen and examined, states her foot is doing well; "basically no pain and edema is almost gone". Review of Systems General: No Chills, No Night Sweats Pulmonary: No Dyspnea, No Cough Cardiovascular: No: Chest Pain, Palpitations Objective Exam Vital Signs Date Time Temp Pulse Resp B/P (MAP) Pulse Ox O2 Delivery O2 Flow Rate FiO2 09/05/20 13:00 62 09/05/20 11:40 36.0 60 16 176/78 (110) 100 Room Air 09/05/20 08:00 36.1 65 18 169/82 (111) 97 Room Air 09/05/20 08:00 Room Air 09/05/20 07:00 68 09/05/20 03:32 36.5 61 20 175/81 (112) 97 NIV CPAP 09/05/20 00:57 62 09/04/20 23:54 36.8 67 20 179/81 (113) 98 NIV CPAP 09/04/20 20:23 Room Air 09/04/20 20:04 36.6 70 18 180/77 (111) 95 Room Air 09/04/20 19:00 67 09/04/20 16:41 36.5 65 18 172/75 (107) 96 Room Air I & O 09/05/20 07:00 Intake Total 3290 ml Balance 3290 ml Capillary Refill : General Appearance: No Apparent Distress HEENT: PERRL/EOMI Respiratory: Lungs Clear, No Accessory Muscle Use, No Respiratory Distress Cardiovascular: Regular Rate, Rhythm, No Murmur Extremity: Other (wound VAC in place left foot, looks good with no signs of increasing necrotic tissue. Right toe no changes) Neurologic/Psychiatric: Alert, Oriented x3 Results Lab Laboratory Tests 09/04/20 15:51: Glucometer 237H 09/04/20 20:33: Glucometer 217H 09/05/20 05:25: White Blood Count 6.9, Red Blood Count 3.93, Hemoglobin 10.6L, Hematocrit 33L, Mean Corpuscular Volume 85, Mean Corpuscular Hemoglobin 27, Mean Corpuscular Hemoglobin Concent 32, Red Cell Distribution Width 13.0, Platelet Count 362, Mean Platelet Volume 9.8, Immature Granulocyte % (Auto) 6, Neutrophils (%) (Auto) 62, Lymphocytes (%) (Auto) 20, Monocytes (%) (Auto) 6, Eosinophils (%) (Auto) 5, Basophils (%) (Auto) 1, Neutrophils # (Auto) 4.3, Lymphocytes # (Auto) 1.4, Monocytes # (Auto) 0.4, Eosinophils # (Auto) 0.3, Basophils # (Auto) 0.0, Immature Granulocyte # (Auto) 0.4H, Sodium Level 141, Potassium Level 3.9, Chloride Level 104, Carbon Dioxide Level 25, Anion Gap 12, Blood Urea Nitrogen 6L, Creatinine 0.69, Estimat Glomerular Filtration Rate > 60, BUN/Creatinine Ratio 9, Glucose Level 211H, Calcium Level 9.1, Phosphorus Level 5.1H, Magnesium Level 1.7, Smear Scan YES 09/05/20 05:50: Glucometer 206H Microbiology 09/01/20 Gram Stain - Final, Resulted 09/01/20 Anaerobic Culture, Resulted Pending 09/01/20 Surgical Culture - Final, Resulted Strep agalactiae Group B Escherichia coli Mixed Bacterial Evelin 08/31/20 MRSA Screen - Final, Complete MRSA not isolated 08/29/20 Blood Culture - Final, Complete No growth Assessment/Plan Assessment/Plan Assessment/Plan DIABETIC FOOT ULCER LEFT FOOT plan to change VAC tomorrow and assess wound bed, may need debridement or possibly home on wound VAC. Foot is better; does not appear to be any spread of necrosis. continue current care LAKISHA LLAMAS DO Sep 05, 2020 13:49
[2020-09-05 16:00] VITALS: BP 168/74
[2020-09-05] MEDS: ENOXAPARIN 40 MG/0.4 ML (LOVENOX) SYR SC SCH (17:10)
[2020-09-05 20:00] VITALS: BP 192/83
[2020-09-05] MEDS: SERTRALINE 50 MG (ZOLOFT) TABLET PO SCH (20:50)
[2020-09-06] VITALS (8 sets, daily range): BP systolic 151–199; BP diastolic 62–87
[2020-09-06] MEDS: hydrALAZINE (APRESOLINE) 25 MG TAB PO SCH ×3 (05:14→20:23)
[2020-09-06 05:31] LABS: BASOPHILS % (AUTO) 0 % (0-10); EOSINOPHILS # (AUTO) 0.3 10^3/uL (0.0-0.3); EOSINOPHILS % (AUTO) 4 % (0-10); HEMATOCRIT 32 % (35-52); HEMOGLOBIN 10.2 g/dL (11.5-16.0); LYMPHOCYTES # (AUTO) 1.6 10^3/uL (1.0-4.0); LYMPHOCYTES % (AUTO) 22 % (12-44); MEAN CORPUSCULAR HEMOGLOBIN 27 pg (25-34); MEAN CORPUSCULAR HGB CONC 32 g/dL (32-36); MEAN CORPUSCULAR VOLUME 85 fL (80-99); MEAN PLATELET VOLUME 9.5 fL (9.0-12.2); MONOCYTES # (AUTO) 0.5 10^3/uL (0.0-1.0); MONOCYTES % (AUTO) 7 % (0-12); NEUTROPHILS # (AUTO) 4.7 10^3/uL (1.8-7.8); NEUTROPHILS % (AUTO) 61 % (42-75); PLATELET COUNT 342 10^3/uL (130-400); WHITE BLOOD COUNT 7.6 10^3/uL (4.3-11.0)
[2020-09-06 05:50] LABS: CHLORIDE 104 MMOL/L (98-107); POTASSIUM 4.2 MMOL/L (3.6-5.0); SODIUM 140 MMOL/L (135-145)
[2020-09-06 05:51] LABS: CALCIUM 8.9 MG/DL (8.5-10.1); GLUCOSE 227 MG/DL (70-105)
[2020-09-06 05:53] LABS: CARBON DIOXIDE 24 MMOL/L (21-32)
[2020-09-06 05:55] LABS: CREATININE SERUM 0.72 MG/DL (0.60-1.30); GFR ESTIMATED > 60; PHOSPHORUS 4.6 MG/DL (2.3-4.7)
[2020-09-06 05:56] LABS: BUN/CREATININE RATIO 15
[2020-09-06 05:58] LABS: MAGNESIUM 1.7 MG/DL (1.6-2.4)
[2020-09-06] MEDS: POTASSIUM CL 10MEQ/50ML IVPB 50 ML IV SCH (06:05)
[2020-09-06] MEDS: KCL 20 MEQ TAB (K-DUR) PO SCH (06:05)
[2020-09-06] MEDS: inSUlin ASPART (NovoLOG) 1 UNIT/0.01 ML (CHARGE PER UNIT) SC SCH ×4 (06:34→20:28)
[2020-09-06] MEDS: MAGNESIUM 1 GM/100 ML IVPB 100 ML IV SCH ×3 (06:34→07:54)
--- NOTE | 2020-09-06 07:45 | Progress Note ---
Subjective Subjective Date Seen by Provider: Sep 06, 2020 Time Seen by Provider: 07:20 Pt appears comfortable sitting up in chair. Foot erythema stable or slightly improved. Wound vac changed this morning and to be evaluated by Dr. Jules for possible continued debridement. Wound looked improved but still with visible pseudomonas colonization. Pt in better spirits today as her daughter's status is improving. Also reports headache has been better with less tylenol required over the last 24h. HTN still poorly controlled despite increased meds. Denies n/v/fever/chills/sob/cp. Review of Systems General: No Chills, No Night Sweats HEENT: No Head Aches Pulmonary: No Dyspnea, No Cough Cardiovascular: No: Chest Pain, Palpitations Gastrointestinal: No: Nausea, Vomiting, Abdominal Pain Genitourinary: No Dysuria Musculoskeletal: leg pain, foot pain (LEFT) Neurological: Weakness, Other (constant headache); No: Confusion All Other Systems Reviewed All Other Systems Reviewed: Yes Objective Exam Vital Signs Vital Signs - First Documented 08/31/20 09/01/20 04:59 10:32 Temp 36.3 Pulse 74 Resp 18 B/P (MAP) 146/67 (93) Pulse Ox 98 O2 Delivery NIV CPAP O2 Flow Rate 3 Capillary Refill : General Appearance: No Apparent Distress Eyes: Bilateral Eye Normal Inspection, Bilateral Eye PERRL, Bilateral Eye EOMI HEENT: PERRL/EOMI Neck: Full Range of Motion Respiratory: Chest Non Tender, Lungs Clear Cardiovascular: Regular Rate, Rhythm Gastrointestinal: Soft Rectal: Deferred Back: No Vertebral Tenderness Extremity: Normal Capillary Refill, Other (LEFT LATERAL FOOT WITH WOUND VAC REMOVED, STRONG PSEUDOMONAL SMELL, WITH GREEN DISCHARGE IN WOUND VAC AND ON WOUND BED., TENDONS EXPOSED FROM 5TH TOE) Neurologic/Psychiatric: Alert, Oriented x3 Skin: Normal Color Lymphatic: No Adenopathy Results Lab Laboratory Tests 09/05/20 16:31: Glucometer 235H 09/05/20 21:18: Glucometer 261H 09/06/20 05:08: White Blood Count 7.6, Red Blood Count 3.76L, Hemoglobin 10.2L, Hematocrit 32L, Mean Corpuscular Volume 85, Mean Corpuscular Hemoglobin 27, Mean Corpuscular Hemoglobin Concent 32, Red Cell Distribution Width 13.1, Platelet Count 342, Mean Platelet Volume 9.5, Immature Granulocyte % (Auto) 6, Neutrophils (%) (Auto) 61, Lymphocytes (%) (Auto) 22, Monocytes (%) (Auto) 7, Eosinophils (%) (Auto) 4, Basophils (%) (Auto) 0, Neutrophils # (Auto) 4.7, Lymphocytes # (Auto) 1.6, Monocytes # (Auto) 0.5, Eosinophils # (Auto) 0.3, Basophils # (Auto) 0.0, Immature Granulocyte # (Auto) 0.5H, Sodium Level 140, Potassium Level 4.2, Chloride Level 104, Carbon Dioxide Level 24, Anion Gap 12, Blood Urea Nitrogen 11, Creatinine 0.72, Estimat Glomerular Filtration Rate > 60, BUN/Creatinine Ratio 15, Glucose Level 227H, Calcium Level 8.9, Phosphorus Level 4.6, Magnesium Level 1.7 Microbiology 09/01/20 Gram Stain - Final, Resulted 09/01/20 Anaerobic Culture - Preliminary, Resulted Bacteroides thetaiotaomicron See Comments 09/01/20 Surgical Culture - Final, Resulted Strep agalactiae Group B Escherichia coli Mixed Bacterial Evelin 08/31/20 MRSA Screen - Final, Complete MRSA not isolated 08/29/20 Blood Culture - Final, Complete No growth Assessment/Plan Assessment/Plan Assessment and Plan DIABETIC FOOT ULCER LEFT FOOT CELLULITIS LEFT FOOT HYPONATREMIA ULCERATION RIGHT TOE UNCONTROLLED DIABETES MELLITUS HYPERTENSION HYPERLIPIDEMIA DEPRESSION ANEMIA MEDICATION NONCOMPLIANCE DUE TO FINANCIAL HARDSHIP CONSTIPATION DIABETIC FOOT ULCER LEFT FOOT WITH CELLULITIS LEFT FOOT - S/P SURGICAL INTERVENTION - WITH POSSIBLE RE-EVAL AND POSSIBLY REPEAT SURGERY TODAY. - IMAGING REPORT FOLLOWS: XRAY LEFT FOOT - Extensive soft tissue gas over the lateral portion of the f oot centered near the 5th MTP joint. The findings are compatible with cellulitis. I do not see definite bony erosion, MRI may be helpful for further evaluation. There are underlying degenerative findings as above. - SUSPECT GAS GANGRENE - PT INITIATED ON IV VANCOMYCIN WELL IV ROCEPHIN, WILL MONITOR CULTURE REPORT OF WOUND WELL BLOOD CULTURE REPORT. - see below for bone scan report BONE SCAN 3 PHASE INDICATION: Left foot diabetic ulcer. FINDINGS: There appears to be asymmetric increased blood flow to the left foot on the blood flow images. There is also some generalized soft tissue uptake on the blood pool images. There is some blood pool activity in the right great toe as well in addition to some increased blood flow to the right great toe. Delayed images just show some generalized uptake in the mid feet bilaterally which may be degenerative. No focus of tracer accumulation is seen to suggest a potential site of osteomyelitis. IMPRESSION: There is increased blood flow and blood pool activity in the region of the right great toe and throughout the left foot, likely owing to cellulitis. No definite three-phase abnormality is seen to suggest osteomyelitis. Dictated on workstation # [id number] Dict: 08/30/20 1610 Trans: 08/30/20 1625 [id number] HYPONATREMIA - DUE TO DM AND ACUTE ILLNESS - MONITOR LABS - IV FLUIDS WITH NORMAL SALINE. - SODIUM LEVELS IMPROVED ULCERATION RIGHT TOE - DRESSING TO TOE, MONITOR FOR FURTHER SYMPTOMS OF CELLULITIS OF THE GREAT TOE - BONE SCAN DID NOT REVEAL OSTEOMYELITIS UNCONTROLLED DIABETES MELLITUS - HOLD GLIPIZIDE AND METFORMIN - START ON LEVEMIR IN HOSPITAL WELL SLIDING SCALE B - DOSE OF LEVEMIR INCREASED TO -1-5- -[id number]- 22 UNITS HYPERTENSION - STARTED VALSARTAN AND BETA QUYNH, MONITOR PRESSURES. - HYDRALAZINE Q8 HYPERLIPIDEMIA - STARTED LIPITOR 20MG DAILY DEPRESSION - MULTI FACTORIAL - DTR IN HOSPITAL WITH COVID, FINANCIAL STRESS, ETC, WILL RESUME SSRI. ANEMIA - ANEMIA OF CHRONIC DISEASE, MONITOR LABS WITH HYDRATION. MEDICATION NONCOMPLIANCE DUE TO FINANCIAL HARDSHIP - WILL SEE IF ADDRESSER CAN HELP ON DC. CONSTIPATION -MIRALAX PRN DVT PROPHYLAXIS WITH LOVENOX AND SCDS, GI PROPHYLAXIS WITH PPI AND PROBIOTICS. SURGERY WILL CONTINUE TO MONITOR WOUND HEALING PROGRESS. Supervisory-Addendum Brief Verification & Attestation Participated in pt care: history, MDM, physical Personally performed: exam, history, MDM, supervision of care Care discussed with: Medical Student Procedures: n/a Results interpretation: Verified all documentation AGREE WITH STUDENT DOCUMENTATION - I WAS IN THE ROOM WITH THE WOUND NURSE WHEN THE WOUND VAC WAS REMOVED, STRONG PSEUDOMONAL ODOR TO THE WOUND BED, GREEN DISCHARGE IN THE BED OF THE WOUND, BUT THE UNDERLYING TISSUE DID NOT APPEAR NECROTIC. CONTINUE WITH CURRENT MANAGEMENT PER DR. JULES, HE WILL EVAL THE WOUND PRIOR TO REPLACEMENT OF THE VAC TO DETERMINE IF FURTHER SURGICAL INTERVENTION IS NEEDED TODAY. PT OTHERWISE STABLE AND MOOD IS IMPROVED. SHAUN KING STUDENT Sep 06, 2020 07:44 VALERIE SCHULTE MD Sep 06, 2020 09:26
[2020-09-06] MEDS: BISOPROLOL 5 MG TAB (ZEBETA) PO SCH (08:05)
[2020-09-06] MEDS: VALSARTAN 160 MG (DIOVAN) TABLET PO SCH (08:06)
[2020-09-06] MEDS: LACTOBACILLUS ACIDOPHILUS (PROBIOTIC) CAPSULE PO SCH ×3 (08:11→17:41)
[2020-09-06] MEDS: PANTOPRAZOLE 40 MG (PROTONIX) TAB PO SCH (08:11)
[2020-09-06] MEDS: LORATADINE (CLARITIN) 10 MG TAB PO SCH (08:11)
--- NOTE | 2020-09-06 09:01 | Progress Note - Surgery ---
YUNIELVIN MED STUDENT 09/06/20 0901: Subjective Date Seen by a Provider: Sep 06, 2020 Time Seen by a Provider: 08:50 Subjective/Events-last exam Neha reports mild constipation and abdominal bloating, last bm 3 days ago. She has been passing gas. She denies fever, chills, abdominal pain, cough, SOB, nausea, vomiting, leg pain. States she has not been urinating more frequently than her usual, states no pain with urination, states she has never had a UTI that she has been aware of. Objective Exam Vital Signs Date Time Temp Pulse Resp B/P (MAP) Pulse Ox O2 Delivery O2 Flow Rate FiO2 09/06/20 07:35 36.2 62 18 182/79 (113) 97 Room Air 09/06/20 04:59 36.2 66 18 173/78 (109) 97 Room Air 09/06/20 01:00 67 09/06/20 00:59 35.8 70 18 159/62 (94) 95 Room Air 09/05/20 20:55 Room Air 09/05/20 20:00 36.3 66 20 192/83 (119) 95 Room Air 09/05/20 19:00 70 09/05/20 16:00 36.2 63 18 168/74 (105) 98 Room Air 09/05/20 13:00 62 09/05/20 11:40 36.0 60 16 176/78 (110) 100 Room Air I & O 09/06/20 06:59 Intake Total 1880 ml Balance 1880 ml Capillary Refill : General Appearance: No Apparent Distress HEENT: PERRL/EOMI Neck: Full Range of Motion Respiratory: Chest Non Tender, Lungs Clear Cardiovascular: Regular Rate, Rhythm, No Murmur Extremity: Normal Capillary Refill, Pedal Edema (left LE 1+. Trace edema on the right), Other (wound has thin yellow-green layer superficial to the exposed soft tissue and tendon. Faint erythema at the margins of the wound site. Cellulitis of left leg has spread several cm superiorly on the limon compared to yesterday) Neurologic/Psychiatric: Alert, Oriented x3 Skin: Normal Color Lymphatic: No Adenopathy Results Lab Laboratory Tests 09/05/20 16:31: Glucometer 235H 09/05/20 21:18: Glucometer 261H 09/06/20 05:08: White Blood Count 7.6, Red Blood Count 3.76L, Hemoglobin 10.2L, Hematocrit 32L, Mean Corpuscular Volume 85, Mean Corpuscular Hemoglobin 27, Mean Corpuscular Hemoglobin Concent 32, Red Cell Distribution Width 13.1, Platelet Count 342, Mean Platelet Volume 9.5, Immature Granulocyte % (Auto) 6, Neutrophils (%) (Auto) 61, Lymphocytes (%) (Auto) 22, Monocytes (%) (Auto) 7, Eosinophils (%) (Auto) 4, Basophils (%) (Auto) 0, Neutrophils # (Auto) 4.7, Lymphocytes # (Auto) 1.6, Monocytes # (Auto) 0.5, Eosinophils # (Auto) 0.3, Basophils # (Auto) 0.0, Immature Granulocyte # (Auto) 0.5H, Sodium Level 140, Potassium Level 4.2, Chloride Level 104, Carbon Dioxide Level 24, Anion Gap 12, Blood Urea Nitrogen 11, Creatinine 0.72, Estimat Glomerular Filtration Rate > 60, BUN/Creatinine Ratio 15, Glucose Level 227H, Calcium Level 8.9, Phosphorus Level 4.6, Magnesium Level 1.7 Microbiology 09/01/20 Gram Stain - Final, Resulted 09/01/20 Anaerobic Culture - Preliminary, Resulted Bacteroides thetaiotaomicron See Comments 09/01/20 Surgical Culture - Final, Resulted Strep agalactiae Group B Escherichia coli Mixed Bacterial Evelin 08/31/20 MRSA Screen - Final, Complete MRSA not isolated 08/29/20 Blood Culture - Final, Complete No growth Assessment/Plan Assessment/Plan Assessment/Plan DIABETIC FOOT ULCER LEFT FOOT s/p debridement -dressing change started in the room today -appearance and odor concerning for pseudomonas infection. -cultures are being obtained -obtain MRI left foot to confirm no osteomyelitis at present time -will need to go to OR for management of this -patient formerly completed vancomycin and rocephin cellulitis of LLE -slightly increased compared to yesterday -continue to monitor ULCERATION RIGHT TOE UNCONTROLLED DIABETES MELLITUS -states urinary frequency is baseline with her DM -10 x urination yesterday per chart CONSTIPATION -still passing gas -miralax was ordered PRN but has not been taken in 2 days -take if feeling bloated or uncomfortable d/t constipation HYPERTENSION HYPERLIPIDEMIA DEPRESSION ANEMIA MEDICATION NONCOMPLIANCE DUE TO FINANCIAL HARDSHIP LAKISHA JULES DO 09/06/20 1137: Subjective Time Seen by a Provider: 09:14 Subjective/Events-last exam Pt seen and examined, states she is doing well and no complaints about foot. Review of Systems General: Fatigue Pulmonary: No Dyspnea, No Cough Cardiovascular: No: Chest Pain, Palpitations Gastrointestinal: Constipation; No: Nausea, Vomiting Objective Exam General Appearance: No Apparent Distress HEENT: PERRL/EOMI Respiratory: Chest Non Tender, Lungs Clear Cardiovascular: Regular Rate, Rhythm, No Murmur Extremity: Other (wound has thin yellow-green layer superficial to the exposed soft tissue and tendon. Faint erythema at the margins of the wound site, which is improved because it was a purple black. She has petechial rash above ankle. ) Assessment/Plan Assessment/Plan Assessment/Plan DIABETIC FOOT ULCER LEFT FOOT s/p debridement, Wound VAC change today, appearance and odor concerning for pseudomonas infection (but most likely a colonization), cultures are being o btained will consider MRI left foot to rule out osteomyelitis at present time, Wound VAC should do good job clearing biofilm, continue ABX ULCERATION RIGHT TOE - improved with the Medical honey, it is debriding the area UNCONTROLLED DIABETES MELLITUS -states urinary frequency is baseline with her DM -10 x urination yesterday per chart CONSTIPATION -still passing gas -miralax was ordered PRN but has not been taken in 2 days -take if feeling bloated or uncomfortable d/t constipation Supervisory-Addendum Brief Verification & Attestation Participated in pt care: history, MDM, physical Personally performed: exam, history, MDM Care discussed with: Medical Student Procedures: n/a Verification and Attestation of Medical Student E/M Service A medical student performed and documented this service. I then reviewed and verified all information documented by the medical student and made modifications to such information, when appropriate. I personally performed a physical exam, medical decision making and then discussed any differences between the notes and made revisions as necessary to create one note. Lakisha Jules , 09/06/20 , 11:37 VIN BRICE MED STUDENT Sep 06, 2020 09:01 LAKISHA JULES DO Sep 06, 2020 11:37
[2020-09-06] MEDS: NS IV 1000 ML 1,000 ML IV SCH ×2 (09:27→22:52)
[2020-09-06] MEDS: ACETAMINOPHEN 500 MG TAB (TYLENOL) PO PRN ×2 (10:28→21:38)
[2020-09-06] MEDS: BETAMETHASONE DIPRO (AUGMENTED) 0.05% OINT 15 GM TOP SCH ×2 (10:28→20:24)
--- NOTE | 2020-09-06 11:15 | Progress Note - Cardiology ---
Cardiology SOAP Progress Note Subjective: Sitting up in recliner at the bedside States she feels well No c/o CP, SOB, palpitations Objective: I&O/Vital Signs 09/06/20 09/07/20 09/07/20 09/07/20 23:02 01:00 04:45 07:58 Temp 35.9 35.9 Pulse 63 58 92 Resp 18 18 B/P (MAP) 168/76 (106) 161/74 (103) Pulse Ox 98 96 O2 Delivery NIV CPAP NIV CPAP Room Air 09/07/20 08:00 Temp 35.9 Pulse 65 Resp 20 B/P (MAP) 165/80 (108) Pulse Ox 98 O2 Delivery Room Air 09/07/20 00:00 Intake Total 1040 ml Balance 1040 ml Constitutional: AAO x 3, well-developed, well-nourished Respiratory: No accessory muscle use; other (good, bilateral air entry) Cardiovascular: regular rate-rhythm, S1 and S2, systolic murmur (soft PA at card base) Gastrointestional: No tender; soft; No guarding; audible bowel sounds Extremities: other (L foot under dressing that was not removed. Some swelling, redness and elevated temp of the L ankle and foot noted); No clubbing, No cyanosis Neurologic/Psychiatric: oriented x 3, other (moves all limbs equally) Skin: No rash on exposed areas, No ulcerations on exposed areas; other (Wound vac on dorsum of L foot) Results/Procedures: Labs Laboratory Tests 09/06/20 11:10: Glucometer 172H 09/06/20 15:40: Glucometer 219H 09/06/20 20:02: Glucometer 187H 09/07/20 05:09: White Blood Count 7.9, Red Blood Count 4.07, Hemoglobin 11.1L, Hematocrit 35, Mean Corpuscular Volume 85, Mean Corpuscular Hemoglobin 27, Mean Corpuscular Hemoglobin Concent 32, Red Cell Distribution Width 13.2, Platelet Count 407H, Mean Platelet Volume 9.8, Immature Granulocyte % (Auto) 4, Neutrophils (%) (Auto) 64, Lymphocytes (%) (Auto) 23, Monocytes (%) (Auto) 5, Eosinophils (%) (Auto) 4, Basophils (%) (Auto) 1, Neutrophils # (Auto) 5.0, Lymphocytes # (Auto) 1.8, Monocytes # (Auto) 0.4, Eosinophils # (Auto) 0.4H, Basophils # (Auto) 0.1, Immature Granulocyte # (Auto) 0.3H, Sodium Level 139, Potassium Level 3.9, Chloride Level 102, Carbon Dioxide Level 24, Anion Gap 13, Blood Urea Nitrogen 10, Creatinine 0.68, Estimat Glomerular Filtration Rate > 60, BUN/Creatinine Ratio 15, Glucose Level 173H, Calcium Level 9.4, Phosphorus Level 5.2H, Magnesium Level 1.8 Microbiology 09/01/20 Gram Stain - Final, Resulted 09/01/20 Anaerobic Culture - Preliminary, Resulted Bacteroides thetaiotaomicron See Comments 09/01/20 Surgical Culture - Final, Resulted Strep agalactiae Group B Escherichia coli Mixed Bacterial Evelin 08/31/20 MRSA Screen - Final, Complete MRSA not isolated 08/29/20 Blood Culture - Final, Complete No growth A/P: Assessment: PAF with RVR HTN, not well controlled DM II Anemia of undetermined etiology, managed by the Med Svce 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 Grade 2 diastolic dysfunction. PASP 45-50 mmHg Plan: * BP not well controlled - increase Hydralazine * Monitor labs * We recommend full oral anticoag as soon as feasible from a surgical standpoint CRISSY CANNON Sep 06, 2020 11:14
[2020-09-06] MEDS: metFORMIN 500 MG (GLUCOPHAGE) TAB PO SCH (17:41)
[2020-09-06] MEDS: ENOXAPARIN 40 MG/0.4 ML (LOVENOX) SYR SC SCH (17:41)
[2020-09-06] MEDS: polyethylene glycoL POWDER 17 GM (MIRALAX) PACK PO PRN (17:42)
--- NOTE | 2020-09-06 18:14 | Progress Note - Cardiology ---
Cardiology SOAP Progress Note Subjective: Some gen malaise No cp or palp or syncope Some shortness breath with activity No n/v/d Objective: I&O/Vital Signs 09/06/20 09/06/20 09/06/20 09/06/20 06:54 07:35 08:00 11:05 Temp 36.2 36.1 Pulse 69 62 60 Resp 18 18 B/P (MAP) 182/79 (113) 199/87 (124) Pulse Ox 97 97 O2 Delivery Room Air Room Air Room Air 09/06/20 09/06/20 12:43 16:00 Temp 36.0 Pulse 61 61 Resp 18 B/P (MAP) 166/77 (106) Pulse Ox 92 O2 Delivery Room Air 09/06/20 00:00 Intake Total 1680 ml Balance 1680 ml Constitutional: AAO x 3, well-developed, well-nourished Respiratory: No accessory muscle use; other (good, bilateral air entry) Cardiovascular: regular rate-rhythm, S1 and S2, systolic murmur (soft PA at card base) Gastrointestional: No tender; soft; No guarding; audible bowel sounds Extremities: other (L foot under dressing that was not removed. Some swelling, redness and elevated temp of the L ankle and foot noted); No clubbing, No cyanosis Neurologic/Psychiatric: oriented x 3, other (moves all limbs equally) Skin: No rash on exposed areas, No ulcerations on exposed areas; other (Wound vac on dorsum of L foot) Results/Procedures: Labs Laboratory Tests 09/05/20 21:18: Glucometer 261H 09/06/20 05:08: White Blood Count 7.6, Red Blood Count 3.76L, Hemoglobin 10.2L, Hematocrit 32L, Mean Corpuscular Volume 85, Mean Corpuscular Hemoglobin 27, Mean Corpuscular Hemoglobin Concent 32, Red Cell Distribution Width 13.1, Platelet Count 342, Mean Platelet Volume 9.5, Immature Granulocyte % (Auto) 6, Neutrophils (%) (Auto) 61, Lymphocytes (%) (Auto) 22, Monocytes (%) (Auto) 7, Eosinophils (%) (Auto) 4, Basophils (%) (Auto) 0, Neutrophils # (Auto) 4.7, Lymphocytes # (Auto) 1.6, Monocytes # (Auto) 0.5, Eosinophils # (Auto) 0.3, Basophils # (Auto) 0.0, Immature Granulocyte # (Auto) 0.5H, Sodium Level 140, Potassium Level 4.2, Chloride Level 104, Carbon Dioxide Level 24, Anion Gap 12, Blood Urea Nitrogen 11, Creatinine 0.72, Estimat Glomerular Filtration Rate > 60, BUN/Creatinine Ratio 15, Glucose Level 227H, Calcium Level 8.9, Phosphorus Level 4.6, Magnesium Level 1.7 09/06/20 11:10: Glucometer 172H 09/06/20 15:40: Glucometer 219H Microbiology 09/01/20 Gram Stain - Final, Resulted 09/01/20 Anaerobic Culture - Preliminary, Resulted Bacteroides thetaiotaomicron See Comments 09/01/20 Surgical Culture - Final, Resulted Strep agalactiae Group B Escherichia coli Mixed Bacterial Evelin 08/31/20 MRSA Screen - Final, Complete MRSA not isolated 08/29/20 Blood Culture - Final, Complete No growth Laboratory Tests 09/05/20 05:25 09/06/20 05:08 A/P: Assessment: PAF with RVR HTN, not well controlled DM II Anemia of undetermined etiology, managed by the Med Svce 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 Grade 2 diastolic dysfunction. PASP 45-50 mmHg Plan: * BP not well controlled - increase Hydralazine * Monitor labs * We recommend full oral anticoag as soon as feasible from a surgical standpoint MATEO GORDILLO MD FACP [facility] Sep 06, 2020 18:14
[2020-09-06] MEDS: SERTRALINE 50 MG (ZOLOFT) TABLET PO SCH (20:23)
[2020-09-07] VITALS (7 sets, daily range): BP systolic 160–179; BP diastolic 69–87
[2020-09-07] MEDS: hydrALAZINE (APRESOLINE) 25 MG TAB PO SCH ×3 (06:17→21:13)
[2020-09-07] MEDS: metFORMIN 500 MG (GLUCOPHAGE) TAB PO SCH ×2 (06:17→17:09)
[2020-09-07 06:26] LABS: BASOPHILS # (AUTO) 0.1 10^3/uL (0.0-0.1); BASOPHILS % (AUTO) 1 % (0-10); EOSINOPHILS # (AUTO) 0.4 10^3/uL (0.0-0.3); EOSINOPHILS % (AUTO) 4 % (0-10); HEMATOCRIT 35 % (35-52); HEMOGLOBIN 11.1 g/dL (11.5-16.0); LYMPHOCYTES # (AUTO) 1.8 10^3/uL (1.0-4.0); LYMPHOCYTES % (AUTO) 23 % (12-44); MEAN CORPUSCULAR HEMOGLOBIN 27 pg (25-34); MEAN CORPUSCULAR HGB CONC 32 g/dL (32-36); MEAN CORPUSCULAR VOLUME 85 fL (80-99); MEAN PLATELET VOLUME 9.8 fL (9.0-12.2); MONOCYTES # (AUTO) 0.4 10^3/uL (0.0-1.0); MONOCYTES % (AUTO) 5 % (0-12); NEUTROPHILS % (AUTO) 64 % (42-75); PLATELET COUNT 407 10^3/uL (130-400); WHITE BLOOD COUNT 7.9 10^3/uL (4.3-11.0)
[2020-09-07 06:37] LABS: CHLORIDE 102 MMOL/L (98-107); POTASSIUM 3.9 MMOL/L (3.6-5.0); SODIUM 139 MMOL/L (135-145)
[2020-09-07 06:39] LABS: CALCIUM 9.4 MG/DL (8.5-10.1); GLUCOSE 173 MG/DL (70-105)
[2020-09-07 06:41] LABS: CARBON DIOXIDE 24 MMOL/L (21-32)
[2020-09-07 06:43] LABS: CREATININE SERUM 0.68 MG/DL (0.60-1.30); GFR ESTIMATED > 60; PHOSPHORUS 5.2 MG/DL (2.3-4.7)
[2020-09-07] MEDS: inSUlin ASPART (NovoLOG) 1 UNIT/0.01 ML (CHARGE PER UNIT) SC SCH ×4 (06:43→21:13)
[2020-09-07 06:44] LABS: BUN/CREATININE RATIO 15
[2020-09-07 06:45] LABS: MAGNESIUM 1.8 MG/DL (1.6-2.4)
[2020-09-07] MEDS: POTASSIUM CL 10MEQ/50ML IVPB 50 ML IV SCH (06:45)
[2020-09-07] MEDS: KCL 20 MEQ TAB (K-DUR) PO SCH (06:45)
[2020-09-07] MEDS: MAGNESIUM 1 GM/100 ML IVPB 100 ML IV SCH (06:55)
--- NOTE | 2020-09-07 07:23 | Progress Note - Surgery ---
VIN BRICE MED STUDENT 09/07/20 0723: Subjective Date Seen by a Provider: Sep 07, 2020 Time Seen by a Provider: 06:50 Subjective/Events-last exam Neha states she occasionally gets sharp neuropathic-type pain when her left foot is elevated but denies pain otherwise. Denies fever, chills, abdominal pain, new rash. She thinks her rash on her left limon is a little better. Says her constipation from yesterday is improved. Objective Exam Vital Signs Date Time Temp Pulse Resp B/P (MAP) Pulse Ox O2 Delivery O2 Flow Rate FiO2 09/07/20 04:45 35.9 92 18 161/74 (103) 96 NIV CPAP 09/07/20 01:00 58 09/06/20 23:02 35.9 63 18 168/76 (106) 98 NIV CPAP 09/06/20 21:54 67 09/06/20 20:15 96 Room Air 09/06/20 19:55 36.0 68 18 151/68 (95) 95 Room Air 09/06/20 16:00 36.0 61 18 166/77 (106) 92 Room Air 09/06/20 12:43 61 09/06/20 11:05 36.1 60 18 199/87 (124) 97 Room Air 09/06/20 08:00 Room Air 09/06/20 07:35 36.2 62 18 182/79 (113) 97 Room Air I & O 09/07/20 07:00 Intake Total 2590 ml Balance 2590 ml Capillary Refill : General Appearance: No Apparent Distress, Obese HEENT: PERRL/EOMI Neck: Full Range of Motion Respiratory: Chest Non Tender, Lungs Clear Cardiovascular: Regular Rate, Rhythm, No Murmur Extremity: Pedal Edema (LLE nonpitting edema), Other (Petechial rash above left ankle appears the same or possibly slightly improved compared to yesterday. Wound vac in place to left foot with 2 cm faint erythema surrounding the vac site. ) Neurologic/Psychiatric: Alert, Oriented x3 Skin: Normal Color Lymphatic: No Adenopathy Results Lab Laboratory Tests 09/06/20 11:10: Glucometer 172H 09/06/20 15:40: Glucometer 219H 09/06/20 20:02: Glucometer 187H 09/07/20 05:09: White Blood Count 7.9, Red Blood Count 4.07, Hemoglobin 11.1L, Hematocrit 35, Mean Corpuscular Volume 85, Mean Corpuscular Hemoglobin 27, Mean Corpuscular Hemoglobin Concent 32, Red Cell Distribution Width 13.2, Platelet Count 407H, Mean Platelet Volume 9.8, Immature Granulocyte % (Auto) 4, Neutrophils (%) (Auto) 64, Lymphocytes (%) (Auto) 23, Monocytes (%) (Auto) 5, Eosinophils (%) (Auto) 4, Basophils (%) (Auto) 1, Neutrophils # (Auto) 5.0, Lymphocytes # (Auto) 1.8, Monocytes # (Auto) 0.4, Eosinophils # (Auto) 0.4H, Basophils # (Auto) 0.1, Immature Granulocyte # (Auto) 0.3H, Sodium Level 139, Potassium Level 3.9, Chloride Level 102, Carbon Dioxide Level 24, Anion Gap 13, Blood Urea Nitrogen 10, Creatinine 0.68, Estimat Glomerular Filtration Rate > 60, BUN/Creatinine Ratio 15, Glucose Level 173H, Calcium Level 9.4, Phosphorus Level 5.2H, Magnesium Level 1.8 Microbiology 09/01/20 Gram Stain - Final, Resulted 09/01/20 Anaerobic Culture - Preliminary, Resulted Bacteroides thetaiotaomicron See Comments 09/01/20 Surgical Culture - Final, Resulted Strep agalactiae Group B Escherichia coli Mixed Bacterial Evelin 08/31/20 MRSA Screen - Final, Complete MRSA not isolated 08/29/20 Blood Culture - Final, Complete No growth Assessment/Plan Assessment/Plan Assessment/Plan DIABETIC FOOT ULCER LEFT FOOT s/p debridement, Wound VAC change today, appearance and odor concerning for pseudomonas infection (but most likely a colonization), cultures are being obtained Wound VAC should do good job clearing biofilm, continue ABX -safe for discharge home with regular wound care checkups ULCERATION RIGHT TOE UNCONTROLLED DIABETES MELLITUS -states urinary frequency is baseline with her DM CONSTIPATION -resolved -took miralax yesterday, had LAKISHA Pool DO 09/07/20 1248: Subjective Time Seen by a Provider: 10:34 Subjective/Events-last exam Pt seen and examined, no complaints. Feels much better and excited to go home tomorrow. Review of Systems Pulmonary: No Dyspnea, No Cough Cardiovascular: No: Chest Pain, Palpitations Gastrointestinal: No: Nausea, Vomiting, Abdominal Pain Objective Exam General Appearance: No Apparent Distress Respiratory: Chest Non Tender, Lungs Clear Cardiovascular: Regular Rate, Rhythm, No Murmur Extremity: No Pedal Edema; Other (Scant petechial rash above left ankle Wound vac in place to left foot with 2 cm faint erythema surrounding the vac site. ) Assessment/Plan Assessment/Plan Assessment/Plan DIABETIC FOOT ULCER LEFT FOOT s/p debridement, Wound VAC change today, appearance and odor concerning for pseudomonas infection (but most likely a colonization), cultures are being obtained Wound VAC should do good job clearing biofilm, continue ABX -safe for discharge home with regular wound care checkups ULCERATION RIGHT TOE UNCONTROLLED DIABETES MELLITUS -states urinary frequency is baseline with her DM CONSTIPATION -resolved -took miralax yesterday, had bm. Supervisory-Addendum Brief Verification & Attestation Participated in pt care: history, MDM, physical Personally performed: exam, history, MDM Care discussed with: Medical Student Procedures: n/a Verification and Attestation of Medical Student E/M Service A medical student performed and documented this service. I then reviewed and verified all information documented by the medical student and made modifications to such information, when appropriate. I personally performed a physical exam, medical decision making and then discussed any differences between the notes and made revisions as necessary to create one note. Lakisha Llamas , 09/07/20 , 12:49 VIN BRICE MED STUDENT Sep 07, 2020 07:23 LAKISHA LLAMAS DO Sep 07, 2020 12:48
--- NOTE | 2020-09-07 07:51 | Progress Note ---
Subjective Subjective Date Seen by Provider: Sep 07, 2020 Time Seen by Provider: 07:20 Pt appears comfortable sitting up in chair. Foot erythema improving. Wound vac was changed and wound cleaned yesterday. Dr. Jules evaluated wound and says it doesn't need more debridement. Setting up patient for portable wound vac. HTN still present and headaches are still regular, both slightly improved with med changes. No other complaints. Denies n/v, fever, chills, sob, chest pain. Review of Systems General: Fatigue HEENT: No Head Aches Pulmonary: No Dyspnea, No Cough Cardiovascular: No: Chest Pain, Palpitations Gastrointestinal: Constipation; No: Nausea, Vomiting Genitourinary: No Dysuria Musculoskeletal: leg pain, foot pain (LEFT) Neurological: Weakness, Other (constant headache); No: Confusion All Other Systems Reviewed All Other Systems Reviewed: Yes Objective Exam Vital Signs Vital Signs - First Documented 09/01/20 09/01/20 00:00 10:32 Temp 36.4 Pulse 86 Resp 18 B/P (MAP) 160/87 (111) Pulse Ox 97 O2 Delivery Room Air O2 Flow Rate 3 Capillary Refill : General Appearance: No Apparent Distress, Obese Eyes: Bilateral Eye Normal Inspection, Bilateral Eye PERRL, Bilateral Eye EOMI HEENT: PERRL/EOMI Neck: Full Range of Motion Respiratory: Chest Non Tender, Lungs Clear Cardiovascular: Regular Rate, Rhythm, No Murmur Gastrointestinal: Soft Rectal: Deferred Back: No Vertebral Tenderness Extremity: Pedal Edema (LLE nonpitting edema), Other (Petechial rash above left ankle appears the same or possibly slightly improved compared to yesterday. Wound vac in place to left foot with 2 cm faint erythema surrounding the vac site. ) Neurologic/Psychiatric: Alert, Oriented x3 Skin: Normal Color Lymphatic: No Adenopathy Results Lab Laboratory Tests 09/06/20 11:10: Glucometer 172H 09/06/20 15:40: Glucometer 219H 09/06/20 20:02: Glucometer 187H 09/07/20 05:09: White Blood Count 7.9, Red Blood Count 4.07, Hemoglobin 11.1L, Hematocrit 35, Mean Corpuscular Volume 85, Mean Corpuscular Hemoglobin 27, Mean Corpuscular Hemoglobin Concent 32, Red Cell Distribution Width 13.2, Platelet Count 407H, Mean Platelet Volume 9.8, Immature Granulocyte % (Auto) 4, Neutrophils (%) (Auto) 64, Lymphocytes (%) (Auto) 23, Monocytes (%) (Auto) 5, Eosinophils (%) (Auto) 4, Basophils (%) (Auto) 1, Neutrophils # (Auto) 5.0, Lymphocytes # (Auto) 1.8, Monocytes # (Auto) 0.4, Eosinophils # (Auto) 0.4H, Basophils # (Auto) 0.1, Immature Granulocyte # (Auto) 0.3H, Sodium Level 139, Potassium Level 3.9, Chloride Level 102, Carbon Dioxide Level 24, Anion Gap 13, Blood Urea Nitrogen 10, Creatinine 0.68, Estimat Glomerular Filtration Rate > 60, BUN/Creatinine Ratio 15, Glucose Level 173H, Calcium Level 9.4, Phosphorus Level 5.2H, Magnesium Level 1.8 Microbiology 09/01/20 Gram Stain - Final, Resulted 09/01/20 Anaerobic Culture - Preliminary, Resulted Bacteroides thetaiotaomicron See Comments 09/01/20 Surgical Culture - Final, Resulted Strep agalactiae Group B Escherichia coli Mixed Bacterial Evelin 08/31/20 MRSA Screen - Final, Complete MRSA not isolated 08/29/20 Blood Culture - Final, Complete No growth Assessment/Plan Assessment/Plan Assessment and Plan DIABETIC FOOT ULCER LEFT FOOT CELLULITIS LEFT FOOT HYPONATREMIA ULCERATION RIGHT TOE UNCONTROLLED DIABETES MELLITUS HYPERTENSION HYPERLIPIDEMIA DEPRESSION ANEMIA MEDICATION NONCOMPLIANCE DUE TO FINANCIAL HARDSHIP CONSTIPATION DIABETIC FOOT ULCER LEFT FOOT WITH CELLULITIS LEFT FOOT - S/P SURGICAL INTERVENTION - WITH POSSIBLE RE-EVAL AND POSSIBLY REPEAT SURGERY TODAY. - IMAGING REPORT FOLLOWS: XRAY LEFT FOOT - Extensive soft tissue gas over the lateral portion of the foot centered near the 5th MTP joint. The findings are compatible with cellulitis. I do not see definite bony erosion, MRI may be helpful for further evaluation. There are underlying degenerative findings as above. - SUSPECT GAS GANGRENE - PT INITIATED ON IV VANCOMYCIN WELL IV ROCEPHIN, WILL MONITOR CULTURE REPORT OF WOUND WELL BLOOD CULTURE REPORT. - see below for bone scan report BONE SCAN 3 PHASE INDICATION: Left foot diabetic ulcer. FINDINGS: There appears to be asymmetric increased blood flow to the left foot on the blood flow images. There is also some generalized soft tissue uptake on the blood pool images. There is some blood pool activity in the right great toe as well in addition to some increased blood flow to the right great toe. Delayed images just show some generalized uptake in the mid feet bilaterally which may be degenerative. No focus of tracer accumulation is seen to suggest a potential site of osteomyelitis. IMPRESSION: There is increased blood flow and blood pool activity in the region of the right great toe and throughout the left foot, likely owing to cellulitis. No definite three-phase abnormality is seen to suggest osteomyelitis. Dictated on workstation # [id number] Dict: 08/30/20 1610 Trans: 08/30/20 1625 [id number] HYPONATREMIA - DUE TO DM AND ACUTE ILLNESS - MONITOR LABS - IV FLUIDS WITH NORMAL SALINE. - SODIUM LEVELS IMPROVED ULCERATION RIGHT TOE - DRESSING TO TOE, MONITOR FOR FURTHER SYMPTOMS OF CELLULITIS OF THE GREAT TOE - BONE SCAN DID NOT REVEAL OSTEOMYELITIS UNCONTROLLED DIABETES MELLITUS - HOLD GLIPIZIDE AND METFORMIN - START ON LEVEMIR IN HOSPITAL WELL SLIDING SCALE B - DOSE OF LEVEMIR INCREASED TO 15 UNITS - CHECK HGBA1C HYPERTENSION - STARTED VALSARTAN AND BETA QUYNH, MONITOR PRESSURES. - HYDRALAZINE Q8 HYPERLIPIDEMIA - STARTED LIPITOR 20MG DAILY DEPRESSION - MULTI FACTORIAL - DTR IN HOSPITAL WITH COVID, FINANCIAL STRESS, ETC, WILL RESUME SSRI. ANEMIA - ANEMIA OF CHRONIC DISEASE, MONITOR LABS WITH HYDRATION. MEDICATION NONCOMPLIANCE DUE TO FINANCIAL HARDSHIP - WILL SEE IF AIR CONDITIONING MANAGER CAN HELP ON DC. CONSTIPATION -MIRALAX PRN DVT PROPHYLAXIS WITH LOVENOX AND SCDS, GI PROPHYLAXIS WITH PPI AND PROBIOTICS. SURGERY WILL CONTINUE TO MONITOR WOUND HEALING PROGRESS. SETTING UP PATIENT FOR PORTABLE WOUND VAC AND AT HOME WOUND CARE SHAUN KING MED STUDENT Sep 07, 2020 07:51
[2020-09-07] MEDS: polyethylene glycoL POWDER 17 GM (MIRALAX) PACK PO PRN (08:03)
[2020-09-07] MEDS: PANTOPRAZOLE 40 MG (PROTONIX) TAB PO SCH (08:04)
[2020-09-07] MEDS: VALSARTAN 160 MG (DIOVAN) TABLET PO SCH (08:04)
[2020-09-07] MEDS: LORATADINE (CLARITIN) 10 MG TAB PO SCH (08:04)
[2020-09-07] MEDS: BISOPROLOL 5 MG TAB (ZEBETA) PO SCH (08:04)
[2020-09-07] MEDS: LACTOBACILLUS ACIDOPHILUS (PROBIOTIC) CAPSULE PO SCH ×3 (08:04→17:09)
[2020-09-07] MEDS: BETAMETHASONE DIPRO (AUGMENTED) 0.05% OINT 15 GM TOP SCH ×2 (08:05→19:58)
--- NOTE | 2020-09-07 10:11 | Progress Note - Cardiology ---
Cardiology SOAP Progress Note Subjective: Sitting up in recliner at the bedside No c/o CP, SOB or palpitations Wound vac in place Objective: I&O/Vital Signs 09/06/20 09/07/20 09/07/20 09/07/20 23:02 01:00 04:45 07:58 Temp 35.9 35.9 Pulse 63 58 92 Resp 18 18 B/P (MAP) 168/76 (106) 161/74 (103) Pulse Ox 98 96 O2 Delivery NIV CPAP NIV CPAP Room Air 09/07/20 08:00 Temp 35.9 Pulse 65 Resp 20 B/P (MAP) 165/80 (108) Pulse Ox 98 O2 Delivery Room Air 09/07/20 00:00 Intake Total 1040 ml Balance 1040 ml Constitutional: AAO x 3, well-developed, well-nourished Respiratory: No accessory muscle use; other (good, bilateral air entry) Cardiovascular: regular rate-rhythm, S1 and S2, systolic murmur (soft PA at card base) Gastrointestional: No tender; soft; No guarding; audible bowel sounds Extremities: other (L foot under dressing that was not removed. Some swelling, redness and elevated temp of the L ankle and foot noted); No clubbing, No cyano sis Neurologic/Psychiatric: oriented x 3, other (moves all limbs equally) Skin: No rash on exposed areas, No ulcerations on exposed areas; other (Wound vac on dorsum of L foot) Results/Procedures: Labs Laboratory Tests 09/06/20 11:10: Glucometer 172H 09/06/20 15:40: Glucometer 219H 09/06/20 20:02: Glucometer 187H 09/07/20 05:09: White Blood Count 7.9, Red Blood Count 4.07, Hemoglobin 11.1L, Hematocrit 35, Mean Corpuscular Volume 85, Mean Corpuscular Hemoglobin 27, Mean Corpuscular Hemoglobin Concent 32, Red Cell Distribution Width 13.2, Platelet Count 407H, Mean Platelet Volume 9.8, Immature Granulocyte % (Auto) 4, Neutrophils (%) (Auto) 64, Lymphocytes (%) (Auto) 23, Monocytes (%) (Auto) 5, Eosinophils (%) (Auto) 4, Basophils (%) (Auto) 1, Neutrophils # (Auto) 5.0, Lymphocytes # (Auto) 1.8, Monocytes # (Auto) 0.4, Eosinophils # (Auto) 0.4H, Basophils # (Auto) 0.1, Immature Granulocyte # (Auto) 0.3H, Sodium Level 139, Potassium Level 3.9, Chloride Level 102, Carbon Dioxide Level 24, Anion Gap 13, Blood Urea Nitrogen 10, Creatinine 0.68, Estimat Glomerular Filtration Rate > 60, BUN/Creatinine Ratio 15, Glucose Level 173H, Calcium Level 9.4, Phosphorus Level 5.2H, Magnesium Level 1.8 Microbiology 09/01/20 Gram Stain - Final, Resulted 09/01/20 Anaerobic Culture - Preliminary, Resulted Bacteroides thetaiotaomicron See Comments 09/01/20 Surgical Culture - Final, Resulted Strep agalactiae Group B Escherichia coli Mixed Bacterial Evelin 08/31/20 MRSA Screen - Final, Complete MRSA not isolated 08/29/20 Blood Culture - Final, Complete No growth Laboratory Tests 09/06/20 05:08 09/07/20 05:09 A/P: Assessment: PAF with RVR HTN, not well controlled DM II Anemia of undetermined etiology, managed by the Med Svce 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 Grade 2 diastolic dysfunction. PASP 45-50 mmHg Plan: * Monitor labs * We recommend full oral anticoag as soon as feasible from a surgical standpoint * Possible dc home tomorrow * Out pt f/u CRISSY CANNON Sep 07, 2020 10:11
[2020-09-07] MEDS: NS IV 1000 ML 1,000 ML IV SCH (12:11)
--- NOTE | 2020-09-07 13:19 | Progress Note - Cardiology ---
Cardiology SOAP Progress Note Subjective: No cp or palp or syncope No shortness of breath at rest Some gen malaise, improving No n/v/d Objective: I&O/Vital Signs 09/07/20 09/07/20 09/07/20 09/07/20 04:45 06:39 07:58 08:00 Temp 35.9 35.9 Pulse 92 59 65 Resp 18 20 B/P (MAP) 161/74 (103) 165/80 (108) Pulse Ox 96 98 O2 Delivery NIV CPAP Room Air Room Air 09/07/20 09/07/20 12:00 12:49 Temp 36.2 Pulse 62 64 Resp 16 B/P (MAP) 173/79 (110) Pulse Ox 96 O2 Delivery Room Air 09/07/20 00:00 Intake Total 1040 ml Balance 1040 ml Constitutional: AAO x 3, well-developed, well-nourished Respiratory: No accessory muscle use; other (good, bilateral air entry) Cardiovascular: regular rate-rhythm, S1 and S2, systolic murmur (soft PA at card base) Gastrointestional: No tender; soft; No guarding; audible bowel sounds Extremities: other (L foot under dressing that was not removed. Some swelling, redness and elevated temp of the L ankle and foot noted); No clubbing, No cyanosis Neurologic/Psychiatric: oriented x 3, other (moves all limbs equally) Skin: No rash on exposed areas, No ulcerations on exposed areas; other (Wound vac on dorsum of L foot) Results/Procedures: Labs Laboratory Tests 09/06/20 15:40: Glucometer 219H 09/06/20 20:02: Glucometer 187H 09/07/20 05:09: White Blood Count 7.9, Red Blood Count 4.07, Hemoglobin 11.1L, Hematocrit 35, Mean Corpuscular Volume 85, Mean Corpuscular Hemoglobin 27, Mean Corpuscular Hemoglobin Concent 32, Red Cell Distribution Width 13.2, Platelet Count 407H, Mean Platelet Volume 9.8, Immature Granulocyte % (Auto) 4, Neutrophils (%) (Auto) 64, Lymphocytes (%) (Auto) 23, Monocytes (%) (Auto) 5, Eosinophils (%) (Auto) 4, Basophils (%) (Auto) 1, Neutrophils # (Auto) 5.0, Lymphocytes # (Auto) 1.8, Monocytes # (Auto) 0.4, Eosinophils # (Auto) 0.4H, Basophils # (Auto) 0.1, Immature Granulocyte # (Auto) 0.3H, Sodium Level 139, Potassium Level 3.9, C hloride Level 102, Carbon Dioxide Level 24, Anion Gap 13, Blood Urea Nitrogen 10, Creatinine 0.68, Estimat Glomerular Filtration Rate > 60, BUN/Creatinine Ratio 15, Glucose Level 173H, Calcium Level 9.4, Phosphorus Level 5.2H, Magnesium Level 1.8 09/07/20 11:12: Glucometer 253H Microbiology 09/01/20 Gram Stain - Final, Complete 09/01/20 Anaerobic Culture - Final, Complete Mixed Anaerobic Evelin Bacteroides thetaiotaomicron Prevotella species See Comments 09/01/20 Surgical Culture - Final, Complete Strep agalactiae Group B Escherichia coli Mixed Bacterial Evelin 08/31/20 MRSA Screen - Final, Complete MRSA not isolated 08/29/20 Blood Culture - Final, Complete No growth Laboratory Tests 09/06/20 05:08 09/07/20 05:09 A/P: Assessment: PAF with RVR HTN, not well controlled DM II Anemia of undetermined etiology, managed by the Med Svce 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 Grade 2 diastolic dysfunction. PASP 45-50 mmHg Plan: * Monitor labs * We recommend full oral anticoag as soon as feasible from a surgical standpoint * Out pt f/u MATEO GORDILLO MD [facility] Sep 07, 2020 13:19
[2020-09-07] MEDS: APIXABAN 5 MG (ELIQUIS) TABLET PO SCH (19:57)
[2020-09-07] MEDS: SERTRALINE 50 MG (ZOLOFT) TABLET PO SCH (19:57)
[2020-09-08 00:01] VITALS: BP 163/72
[2020-09-08] MEDS: NS IV 1000 ML 1,000 ML IV SCH (00:45)
[2020-09-08 04:27] VITALS: BP 171/77
[2020-09-08] MEDS: hydrALAZINE (APRESOLINE) 25 MG TAB PO SCH (05:41)
[2020-09-08] MEDS: metFORMIN 500 MG (GLUCOPHAGE) TAB PO SCH (05:41)
[2020-09-08 05:47] LABS: BASOPHILS # (AUTO) 0.1 10^3/uL (0.0-0.1); BASOPHILS % (AUTO) 1 % (0-10); EOSINOPHILS # (AUTO) 0.3 10^3/uL (0.0-0.3); EOSINOPHILS % (AUTO) 4 % (0-10); HEMATOCRIT 33 % (35-52); HEMOGLOBIN 10.4 g/dL (11.5-16.0); LYMPHOCYTES # (AUTO) 1.8 10^3/uL (1.0-4.0); LYMPHOCYTES % (AUTO) 21 % (12-44); MEAN CORPUSCULAR HEMOGLOBIN 27 pg (25-34); MEAN CORPUSCULAR HGB CONC 32 g/dL (32-36); MEAN CORPUSCULAR VOLUME 84 fL (80-99); MEAN PLATELET VOLUME 9.6 fL (9.0-12.2); MONOCYTES # (AUTO) 0.4 10^3/uL (0.0-1.0); MONOCYTES % (AUTO) 5 % (0-12); NEUTROPHILS # (AUTO) 5.9 10^3/uL (1.8-7.8); NEUTROPHILS % (AUTO) 68 % (42-75); PLATELET COUNT 372 10^3/uL (130-400); WHITE BLOOD COUNT 8.6 10^3/uL (4.3-11.0)
[2020-09-08 05:57] LABS: CHLORIDE 103 MMOL/L (98-107); POTASSIUM 4.2 MMOL/L (3.6-5.0); SODIUM 139 MMOL/L (135-145)
[2020-09-08 05:58] LABS: CALCIUM 9.3 MG/DL (8.5-10.1)
[2020-09-08 05:59] LABS: GLUCOSE 199 MG/DL (70-105)
[2020-09-08 06:01] LABS: CARBON DIOXIDE 23 MMOL/L (21-32)
[2020-09-08 06:03] LABS: CREATININE SERUM 0.74 MG/DL (0.60-1.30); GFR ESTIMATED > 60; PHOSPHORUS 5.5 MG/DL (2.3-4.7)
[2020-09-08 06:04] LABS: BUN/CREATININE RATIO 14
[2020-09-08 06:05] LABS: MAGNESIUM 1.6 MG/DL (1.6-2.4)
[2020-09-08] MEDS: POTASSIUM CL 10MEQ/50ML IVPB 50 ML IV SCH (06:05)
[2020-09-08] MEDS: KCL 20 MEQ TAB (K-DUR) PO SCH (06:06)
[2020-09-08] MEDS: MAGNESIUM 1 GM/100 ML IVPB 100 ML IV SCH ×3 (06:13→08:00)
[2020-09-08] MEDS: inSUlin ASPART (NovoLOG) 1 UNIT/0.01 ML (CHARGE PER UNIT) SC SCH ×2 (06:21→11:44)
[2020-09-08] MEDS: ACETAMINOPHEN 500 MG TAB (TYLENOL) PO PRN (06:22)
--- NOTE | 2020-09-08 07:54 | Progress Note - Surgery ---
VIN BRICE MED STUDENT 09/08/20 0754: Subjective Date Seen by a Provider: Sep 08, 2020 Time Seen by a Provider: 07:00 Subjective/Events-last exam Neha is eager to go home. States no fever, chills, abdominal pain, new rash, nausea, SOB, or palpitations. States LLE intermittent pain is unchanged from chronic neuropathy. Denies constipation. Objective Exam Vital Signs Date Time Temp Pulse Resp B/P (MAP) Pulse Ox O2 Delivery O2 Flow Rate FiO2 09/08/20 07:00 59 09/08/20 04:27 36.5 68 18 171/77 (108) 97 NIV CPAP 09/08/20 00:36 61 09/08/20 00:01 36.3 63 18 163/72 (102) 97 NIV CPAP 09/07/20 20:00 36.3 63 20 161/73 (102) 98 Room Air 09/07/20 20:00 Room Air 09/07/20 19:00 64 09/07/20 18:11 178/87 (117) 09/07/20 16:00 37.0 62 22 179/75 (109) 96 Room Air 09/07/20 13:55 60 160/69 (99) 09/07/20 12:49 64 09/07/20 12:00 36.2 62 16 173/79 (110) 96 Room Air 09/07/20 08:00 35.9 65 20 165/80 (108) 98 Room Air 09/07/20 07:58 Room Air I & O 09/08/20 07:00 Intake Total 2490 ml Balance 2490 ml Capillary Refill : General Appearance: No Apparent Distress, Obese HEENT: PERRL/EOMI Neck: Full Range of Motion Respiratory: Chest Non Tender, Lungs Clear, Normal Breath Sounds, No Accessory Muscle Use, No Respiratory Distress Cardiovascular: Regular Rate, Rhythm, No Murmur Gastrointestinal: non tender, soft; No distended, No guarding Extremity: Pedal Edema (trace nonpitting), Other (Scant petechial rash above left ankle Wound vac in place to left foot with 2 cm faint erythema surrounding the vac site. ) Neurologic/Psychiatric: Alert, Oriented x3 Skin: Normal Color, Warm/Dry Lymphatic: No Adenopathy Results Lab Laboratory Tests 09/07/20 11:12: Glucometer 253H 09/07/20 16:18: Glucometer 202H 09/07/20 20:02: Glucometer 190H 09/08/20 05:34: White Blood Count 8.6, Red Blood Count 3.86, Hemoglobin 10.4L, Hematocrit 33L, Mean Corpuscular Volume 84, Mean Corpuscular Hemoglobin 27, Mean Corpuscular Hemoglobin Concent 32, Red Cell Distribution Width 13.3, Platelet Count 372, Mean Platelet Volume 9.6, Immature Granulocyte % (Auto) 2, Neutrophils (%) (Auto) 68, Lymphocytes (%) (Auto) 21, Monocytes (%) (Auto) 5, Eosinophils (%) (Auto) 4, Basophils (%) (Auto) 1, Neutrophils # (Auto) 5.9, Lymphocytes # (Auto) 1.8, Monocytes # (Auto) 0.4, Eosinophils # (Auto) 0.3, Basophils # (Auto) 0.1, Immature Granulocyte # (Auto) 0.2H, Sodium Level 139, Potassium Level 4.2, Chloride Level 103, Carbon Dioxide Level 23, Anion Gap 13, Blood Urea Nitrogen 10, Creatinine 0.74, Estimat Glomerular Filtration Rate > 60, BUN/Creatinine Ratio 14, Glucose Level 199H, Calcium Level 9.3, Phosphorus Level 5.5H, Magnesium Level 1.6 Microbiology 09/01/20 Gram Stain - Final, Complete 09/01/20 Anaerobic Culture - Final, Complete Mixed Anaerobic Isaias Bacteroides thetaiotaomicron Prevotella species See Comments 09/01/20 Surgical Culture - Final, Complete Strep agalactiae Group B Escherichia coli Mixed Bacterial Isaias 08/31/20 MRSA Screen - Final, Complete MRSA not isolated 08/29/20 Blood Culture - Final, Complete No growth Assessment/Plan Assessment/Plan Assessment/Plan DIABETIC FOOT ULCER LEFT FOOT s/p debridement, Wound VAC change yesterday, cultures grew out mixed isaias with GBS Wound VAC should do good job clearing biofilm, continue ABX -safe for discharge home with regular wound care checkups ULCERATION RIGHT TOE UNCONTROLLED DIABETES MELLITUS -states urinary frequency is baseline with her DM CONSTIPATION -resolved LAKISHA LLAMAS DO 09/08/20 1634: Supervisory-Addendum Brief Verification & Attestation Participated in pt care: history, MDM, physical Personally performed: other Care discussed with: Medical Student Procedures: n/a Pt left before I could see her, but I discussed the Progress note with the student. VIN BRICE STUDENT Sep 08, 2020 07:54 LAKISHA LLAMAS DO Sep 08, 2020 16:34
[2020-09-08 07:56] VITALS: BP 168/73
[2020-09-08] MEDS: VALSARTAN 160 MG (DIOVAN) TABLET PO SCH (08:24)
[2020-09-08] MEDS: APIXABAN 5 MG (ELIQUIS) TABLET PO SCH (08:24)
[2020-09-08] MEDS: PANTOPRAZOLE 40 MG (PROTONIX) TAB PO SCH (08:24)
[2020-09-08] MEDS: LACTOBACILLUS ACIDOPHILUS (PROBIOTIC) CAPSULE PO SCH (08:24)
[2020-09-08] MEDS: LORATADINE (CLARITIN) 10 MG TAB PO SCH (08:24)
[2020-09-08] MEDS: BISOPROLOL 5 MG TAB (ZEBETA) PO SCH (08:25)
[2020-09-08] MEDS: BETAMETHASONE DIPRO (AUGMENTED) 0.05% OINT 15 GM TOP SCH (08:25)
--- NOTE | 2020-09-08 09:05 | Discharge Summary ---
Diagnosis/Chief Complaint Date of Admission Aug 29, 2020 at 14:45 Date of Discharge Reason Hospital Visit PT IS A 65 Y/O FEMALE WHO IS A PATIENT IN MY MEDICAL PRACTICE. SHE WAS SEEN IN CLINIC TODAY FOR A "SORE FOOT" WHICH TURNED OUT TO BE A WOUND ON THE PLANTAR SURFACE OF HER LEFT FOOT THAT HAD "MOVED TO THE TOP" OVER A FEW HOURS. PER PATIENT REPORT, SHE HAD THE WOUND ON HER FOOT "FOR A WHILE" AND THIS MORNING SHE NOTICED A SORE SPOT ON THE TOP OF HER FOOT AND BY THE TIME SHE GOT TO CLINIC IT WAS A LARGE OOZING LESION ON THE TOP OF HER FOOT NEAR THE FIFTH TOE. SHE LATER ADMITTED THAT SHE ALSO HAD A WOUND ON THE TOE ON THE RIGHT FOOT. SHE HAD STOPPED TAKING A LOT OF HER MEDICATIONS SEVERAL MONTHS AGO BECAUSE OF MEDICATION COST AND NOT HAVING INSURANCE. SHE REPORTS A LOT OF FAMILIAL STRESS RECENTLY AND HAVING HEADACHES AND NOT FEELING WELL IN GENERAL. Discharge Summary Discharge Physical Examination Allergies: Coded Allergies: lisinopril (Verified Adverse Reaction, Unknown, COUGH, 08/30/20) Vitals & I&Os Vital Signs Date Time Temp Pulse Resp B/P (MAP) Pulse Ox O2 Delivery O2 Flow Rate FiO2 09/08/20 07:56 36.1 61 18 168/73 (104) 95 Room Air Hospital Course Pending Labs Laboratory Tests 09/08/20 05:34: White Blood Count 8.6, Red Blood Count 3.86, Hemoglobin 10.4, Hematocrit 33, Mean Corpuscular Volume 84, Mean Corpuscular Hemoglobin 27, Mean Corpuscular Hemoglobin Concent 32, Red Cell Distribution Width 13.3, Platelet Count 372, Mean Platelet Volume 9.6, Immature Granulocyte % (Auto) 2, Neutrophils (%) (Auto) 68, Lymphocytes (%) (Auto) 21, Monocytes (%) (Auto) 5, Eosinophils (%) (Auto) 4, Basophils (%) (Auto) 1, Neutrophils # (Auto) 5.9, Lymphocytes # (Auto) 1.8, Monocytes # (Auto) 0.4, Eosinophils # (Auto) 0.3, Basophils # (Auto) 0.1, Immature Granulocyte # (Auto) 0.2, Sodium Level 139, Potassium Level 4.2, Chloride Level 103, Carbon Dioxide Level 23, Anion Gap 13, Blood Urea Nitrogen 10, Creatinine 0.74, Estimat Glomerular Filtration Rate > 60, BUN/Creatinine Ratio 14, Glucose Level 199, Calcium Level 9.3, Phosphorus Level 5.5, Magnesium Level 1.6 Discharge Instructions to patient/family Please see electronic discharge instructions given to patient. Discharge Medications Reviewed and agree with Discharge Medication list on patient's Discharge I nstruction sheet VALERIE SCHULTE MD Sep 08, 2020 09:05
[2020-09-08] MEDS ORDERED: LACT1CAP7 PO (09:13)
[2020-09-08] MEDS ORDERED: HYDR-3923 PO (09:13)
[2020-09-08] MEDS ORDERED: VALS160T29 PO (09:13)
[2020-09-08] MEDS ORDERED: INSU100V5 SQ (09:13)
[2020-09-08] MEDS ORDERED: SERT-413 PO (09:13)
[2020-09-08] MEDS ORDERED: DILT240C91 PO (09:13)
[2020-09-08] MEDS ORDERED: APIX5TAB PO (09:13)
[2020-09-08] MEDS ORDERED: METF-397 PO (09:13)
[2020-09-08] MEDS ORDERED: ATOR20TA66 PO (09:13)
[2020-09-08] MEDS ORDERED: CEFD300C3 PO (09:14)
--- NOTE | 2020-09-08 09:17 | Discharge Inst-Simple/Standard ---
Discharge Inst-Standard Reconcile Patient Problems Problems Reviewed?: Yes Discharge Medications New, Converted or Re-Newed RX: Transmitted to Pharmacy ([facility]) Patient Instructions/Follow Up Plan of Care/Instructions/FU: 1 [facility] [address] MURIEL GARRETT APPT WITH DR. ROJAS FOR RIGHT FOOT SATURDAY OR SATURDAY WITH WOUND CARE CLINIC Activity as Tolerated: Yes Goal: IMPROVED HEALING OF WOUND ON LEFT FOOT IMPROVED DIABETIC CONTROL IMPROVED BLOOD PRESSURE CONTROL Discharge Diet: ADA Diet Health Concerns: DIABETES DIABETIC FOOT WOUND ON LEFT HYPERTENSION Return to The Hospital For: ANY CONCERN FOR WORSENING OF THE WOUND, INCREASED REDNESS UP THE LEG ON THE LEFT, OR UNCONTROLLED BLOOD PRESSURE OR OTHER LIFE THREATENING ILLNESSES OR INJURIES Medication List: Active Scripts Active Cefdinir 300 Mg Capsule 300 Mg PO BID Metformin HCl 500 Mg Tablet 250 Mg PO BID@ Levemir (Insulin Determir) 1,000 Units/10 Ml Soln 22 Unit SQ HS Acidophilus-Pectin Capsule (Lactobacillus Acidophilus/Pect) 1 Each Capsule 2 Each PO TIDWM Sertraline HCl 50 Mg Tablet 50 Mg PO HS Valsartan 160 Mg Tablet 320 Mg PO DAILY Diltiazem 24Hr ER (Diltiazem HCl) 240 Mg Cap.er.24h 240 Mg PO DAILY Hydralazine HCl 25 Mg Tablet 50 Mg PO Q8HR Atorvastatin Calcium 20 Mg Tablet 20 Mg PO HS Eliquis (Apixaban) 5 Mg Tablet 5 Mg PO BID Reported Meclizine HCl 25 Mg Tablet 25 Mg PO Q8H PRN ALPRAZolam 0.25 Mg Tablet 0.25 Mg PO BID PRN Loratadine 10 Mg Tablet 10 Mg PO DAILY PRN Tylenol Extra Strength (Acetaminophen) 500 Mg Tablet 500-1,000 Mg PO Q6H PRN Cetirizine HCl 10 Mg Tablet 10 Mg PO DAILY Bisoprolol-Hctz 10-6.25 mg Tab (Bisoprolol Fumarate/Hctz) 1 Each Tablet 1 Ea PO DAILY Enalapril Maleate 10 Mg Tablet 10 Mg PO BID Lab results: Laboratory Tests Test 09/07/20 11:12 09/07/20 16:18 09/07/20 20:02 09/08/20 05:34 Range/Units Glucometer 253 H 202 H 190 H 70-110 MG/DL White Blood Count 8.6 4.3-11.0 10^3/uL Red Blood Count 3.86 3.80-5.11 10^6/uL Hemoglobin 10.4 L 11.5-16.0 g/dL Hematocrit 33 L 35-52 % Mean Corpuscular Volume 84 80-99 fL Mean Corpuscular Hemoglobin 27 25-34 pg Mean Corpuscular Hemoglobin Concent 32 32-36 g/dL Red Cell Distribution Width 13.3 10.0-14.5 % Platelet Count 372 130-400 10^3/uL Mean Platelet Volume 9.6 9.0-12.2 fL Immature Granulocyte % (Auto) 2 % Neutrophils (%) (Auto) 68 42-75 % Lymphocytes (%) (Auto) 21 12-44 % Monocytes (%) (Auto) 5 0-12 % Eosinophils (%) (Auto) 4 0-10 % Basophils (%) (Auto) 1 0-10 % Neutrophils # (Auto) 5.9 1.8-7.8 10^3/uL Lymphocytes # (Auto) 1.8 1.0-4.0 10^3/uL Monocytes # (Auto) 0.4 0.0-1.0 10^3/uL Eosinophils # (Auto) 0.3 0.0-0.3 10^3/uL Basophils # (Auto) 0.1 0.0-0.1 10^3/uL Immature Granulocyte # (Auto) 0.2 H 0.0-0.1 10^3/uL Sodium Level 139 135-145 MMOL/L Potassium Level 4.2 3.6-5.0 MMOL/L Chloride Level 103 98-107 MMOL/L Carbon Dioxide Level 23 21-32 MMOL/L Anion Gap 13 5-14 MMOL/L Blood Urea Nitrogen 10 7-18 MG/DL Creatinine 0.74 0.60-1.30 MG/DL Estimat Glomerular Filtration Rate > 60 BUN/Creatinine Ratio 14 Glucose Level 199 H 70-105 MG/DL Calcium Level 9.3 8.5-10.1 MG/DL Phosphorus Level 5.5 H 2.3-4.7 MG/DL Magnesium Level 1.6 1.6-2.4 MG/DL My orders: Orders - VALERIE SCHULTE MD Magnesium 1 Gm/100 Ml Ivpb (Magnesium Amezcua (09/08/20 06:15) Attending Discharge Inpt/Inobs (09/08/20 09:05) VALERIE SCHULTE MD Sep 08, 2020 09:17
--- NOTE | 2020-09-08 10:32 | Progress Note - Cardiology ---
Cardiology SOAP Progress Note Subjective: No cp or palp or syncope or shortness of breath No leg or foot discomfort No n/v/d Objective: I&O/Vital Signs 09/08/20 09/08/20 09/08/20 09/08/20 00:01 00:36 04:27 07:00 Temp 36.3 36.5 Pulse 63 61 68 59 Resp 18 18 B/P (MAP) 163/72 (102) 171/77 (108) Pulse Ox 97 97 O2 Delivery NIV CPAP NIV CPAP 09/08/20 07:56 Temp 36.1 Pulse 61 Resp 18 B/P (MAP) 168/73 (104) Pulse Ox 95 O2 Delivery Room Air 09/08/20 00:00 Intake Total 2440 ml Balance 2440 ml Constitutional: AAO x 3, well-developed, well-nourished Respiratory: No accessory muscle use; other (good, bilateral air entry) Cardiovascular: regular rate-rhythm, S1 and S2, systolic murmur (soft PA at card base) Gastrointestional: No tender; soft; No guarding; audible bowel sounds Extremities: other (L foot under dressing that was not removed. Some swelling, redness and elevated temp of the L ankle and foot noted); No clubbing, No cyanosis Neurologic/Psychiatric: oriented x 3, other (moves all limbs equally) Skin: No rash on exposed areas, No ulcerations on exposed areas; other (Wound vac on dorsum of L foot) Results/Procedures: Labs Laboratory Tests 09/07/20 11:12: Glucometer 253H 09/07/20 16:18: Glucometer 202H 09/07/20 20:02: Glucometer 190H 09/08/20 05:34: White Blood Count 8.6, Red Blood Count 3.86, Hemoglobin 10.4L, Hematocrit 33L, Mean Corpuscular Volume 84, Mean Corpuscular Hemoglobin 27, Mean Corpuscular Hemoglobin Concent 32, Red Cell Distribution Width 13.3, Platelet Count 372, Mean Platelet Volume 9.6, Immature Granulocyte % (Auto) 2, Neutrophils (%) (Auto) 68, Lymphocytes (%) (Auto) 21, Monocytes (%) (Auto) 5, Eosinophils (%) (Auto) 4, Basophils (%) (Auto) 1, Neutrophils # (Auto) 5.9, Lymphocytes # (Auto) 1.8, Monocytes # (Auto) 0.4, Eosinophils # (Auto) 0.3, Basophils # (Auto) 0.1, Immature Granulocyte # (Auto) 0.2H, Sodium Level 139, Potassium Level 4.2, Chloride Level 103, Carbon Dioxide Level 23, Anion Gap 13, Blood Urea Nitrogen 10, Creatinine 0.74, Estimat Glomerular Filtration Rate > 60, BUN/Creatinine Ratio 14, Glucose Level 199H, Calcium Level 9.3, Phosphorus Level 5.5H, Magnesium Level 1.6 Microbiology 09/01/20 Gram Stain - Final, Complete 09/01/20 Anaerobic Culture - Final, Complete Mixed Anaerobic Evelin Bacteroides thetaiotaomicron Prevotella species See Comments 09/01/20 Surgical Culture - Final, Complete Strep agalactiae Group B Escherichia coli Mixed Bacterial Evelin 08/31/20 MRSA Screen - Final, Complete MRSA not isolated 08/29/20 Blood Culture - Final, Complete No growth Laboratory Tests 09/07/20 05:09 09/08/20 05:34 A/P: Assessment: PAF with RVR HTN DM II Anemia of undetermined etiology, managed by the Med Svce 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 Grade 2 diastolic dysfunction. PASP 45-50 mmHg Plan: * I discussed her CV issues with her and answered her questions * Out pt f/u MATEO GORDILLO MD FACP [facility] Sep 08, 2020 10:32
[2020-09-08 11:22] VITALS: BP 150/70
== END 2020-09-08 13:05 | disposition home or self-care (01) | DRG 623 ==
LOC: 4TH 14:45 → ICU 09-01 10:55 → CSD 09-02 08:05 → 4TH 09-02 14:34
PROVIDERS: ADMIT Family Medicine; ATTEND Family Medicine
PROC: 0KBW0ZZ Excision of Left Foot Muscle, Open Approach (ICD-10-PCS; principal; 2020-09-02)
DX: E11.621 Type 2 diabetes mellitus with foot ulcer (principal); L03.116 Cellulitis of left lower limb; E87.1 Hypo-osmolality and hyponatremia; B95.1 Streptococcus, group B, as the cause of diseases classified elsewhere; B96.20 Unspecified Escherichia coli [E. coli] as the cause of diseases classified elsewhere; L97.519 Non-pressure chronic ulcer of other part of right foot with unspecified severity; E11.65 Type 2 diabetes mellitus with hyperglycemia; Z79.4 Long term (current) use of insulin; Z91.120 Patient's intentional underdosing of medication regimen due to financial hardship; I48.0 Paroxysmal atrial fibrillation; K59.00 Constipation, unspecified; F41.9 Anxiety disorder, unspecified; F32.9 Major depressive disorder, single episode, unspecified; D64.9 Anemia, unspecified; G47.33 Obstructive sleep apnea (adult) (pediatric); E78.00 Pure hypercholesterolemia, unspecified; E78.5 Hyperlipidemia, unspecified; K21.9 Gastro-esophageal reflux disease without esophagitis; Z83.3 Family history of diabetes mellitus; Z81.8 Family history of other mental and behavioral disorders; Z82.49 Family history of ischemic heart disease and other diseases of the circulatory system
CPT/HCPCS: 36415; 73630; 78315; 80048; 80053; 80061; 80202; 82962; 83036; 83735; 84100; 85025; 85027; 85652; 86141; 87040; 87070; 87075; 87076; 87077; 87081; 87185; 87186; 87205; 88304; 93005; 93306

== ENCOUNTER → 2020-09-12 | Outpatient (CLI) | payer BC ==
[~2020-09-12] MED LIST changes: +ACET-2267 PO; +ALPR0.254 PO; +APIX5TAB PO; +ATOR20TA66 PO; +BISO-3 PO; +CEFD300C3 PO; +CETI10TA17 PO; +DILT240C91 PO; +ENAL10TA16 PO; +HYDR-3923 PO; +INSU100V5 SQ; +LACT1CAP7 PO; +LORA10TA7 PO; +MECL-149 PO; +METF-397 PO; +SERT-413 PO; +VALS160T29 PO
== END ==
LOC: WOUNDCARE 13:08
PROVIDERS: ATTEND Surgery
DX: E11.52 Type 2 diabetes mellitus with diabetic peripheral angiopathy with gangrene (principal); E11.621 Type 2 diabetes mellitus with foot ulcer; E11.42 Type 2 diabetes mellitus with diabetic polyneuropathy; I96 Gangrene, not elsewhere classified; L97.423 Non-pressure chronic ulcer of left heel and midfoot with necrosis of muscle; L97.512 Non-pressure chronic ulcer of other part of right foot with fat layer exposed
CPT/HCPCS: 11042; 11043; 11046; G0463

== ENCOUNTER → 2020-09-19 | Outpatient (CLI) | payer BC | LOC: WOUNDCARE 13:22 | PROVIDERS: ATTEND Surgery | DX: E11.621 Type 2 diabetes mellitus with foot ulcer (principal); I96 Gangrene, not elsewhere classified; E11.42 Type 2 diabetes mellitus with diabetic polyneuropathy; L97.423 Non-pressure chronic ulcer of left heel and midfoot with necrosis of muscle; L97.512 Non-pressure chronic ulcer of other part of right foot with fat layer exposed | CPT/HCPCS: 11042; 11043; 11046; 97605; G0463 ==

== ENCOUNTER → 2020-09-22 | Outpatient (CLI) | payer BC | LOC: WOUNDCARE 13:25 | PROVIDERS: ATTEND Surgery | DX: L03.116 Cellulitis of left lower limb (principal); E11.621 Type 2 diabetes mellitus with foot ulcer; E11.42 Type 2 diabetes mellitus with diabetic polyneuropathy; L97.426 Non-pressure chronic ulcer of left heel and midfoot with bone involvement without evidence of necrosis; E11.52 Type 2 diabetes mellitus with diabetic peripheral angiopathy with gangrene | CPT/HCPCS: 99212 ==

== ENCOUNTER → 2020-09-26 | Outpatient (CLI) | payer BC | LOC: WOUNDCARE 12:51 | PROVIDERS: ATTEND Surgery | DX: E11.621 Type 2 diabetes mellitus with foot ulcer (principal); L97.512 Non-pressure chronic ulcer of other part of right foot with fat layer exposed; L97.522 Non-pressure chronic ulcer of other part of left foot with fat layer exposed; I10 Essential (primary) hypertension | CPT/HCPCS: 99212 ==

== ENCOUNTER → 2020-10-03 | Outpatient (CLI) | payer BC | LOC: WOUNDCARE 14:28 | PROVIDERS: ATTEND Surgery | DX: E11.621 Type 2 diabetes mellitus with foot ulcer (principal); I96 Gangrene, not elsewhere classified; E11.42 Type 2 diabetes mellitus with diabetic polyneuropathy; L97.423 Non-pressure chronic ulcer of left heel and midfoot with necrosis of muscle | CPT/HCPCS: 11043; 11046; G0463 ==

== ENCOUNTER → 2020-10-10 | Outpatient (CLI) | payer BC | LOC: WOUNDCARE 14:25 | PROVIDERS: ATTEND Surgery | DX: E11.621 Type 2 diabetes mellitus with foot ulcer (principal); E11.42 Type 2 diabetes mellitus with diabetic polyneuropathy; L97.422 Non-pressure chronic ulcer of left heel and midfoot with fat layer exposed; E11.52 Type 2 diabetes mellitus with diabetic peripheral angiopathy with gangrene | CPT/HCPCS: 11042; 11045; A6207; G0463 ==

== ENCOUNTER → 2020-10-18 | Outpatient (CLI) | payer BC | LOC: WOUNDCARE 15:18 | PROVIDERS: ATTEND Surgery | DX: E11.621 Type 2 diabetes mellitus with foot ulcer (principal); L97.512 Non-pressure chronic ulcer of other part of right foot with fat layer exposed; E11.42 Type 2 diabetes mellitus with diabetic polyneuropathy; L97.422 Non-pressure chronic ulcer of left heel and midfoot with fat layer exposed; L03.115 Cellulitis of right lower limb; E11.52 Type 2 diabetes mellitus with diabetic peripheral angiopathy with gangrene | CPT/HCPCS: 11042; 11045; A6197; G0463 ==

== ENCOUNTER → 2020-10-25 | Outpatient (CLI) | payer BC | LOC: WOUNDCARE 15:09 | PROVIDERS: ATTEND Surgery | DX: L97.512 Non-pressure chronic ulcer of other part of right foot with fat layer exposed (principal); I96 Gangrene, not elsewhere classified; E11.621 Type 2 diabetes mellitus with foot ulcer; E11.42 Type 2 diabetes mellitus with diabetic polyneuropathy; L97.422 Non-pressure chronic ulcer of left heel and midfoot with fat layer exposed; L03.116 Cellulitis of left lower limb | CPT/HCPCS: 11042; 11045; G0463 ==

== ENCOUNTER → 2020-10-31 | Outpatient (CLI) | payer BC | LOC: WOUNDCARE 14:17 | PROVIDERS: ATTEND Surgery | DX: I96 Gangrene, not elsewhere classified (principal); L97.512 Non-pressure chronic ulcer of other part of right foot with fat layer exposed; E11.621 Type 2 diabetes mellitus with foot ulcer; E11.42 Type 2 diabetes mellitus with diabetic polyneuropathy; L97.422 Non-pressure chronic ulcer of left heel and midfoot with fat layer exposed | CPT/HCPCS: 11042; G0463 ==

== ENCOUNTER → 2020-11-07 | Outpatient (CLI) | payer BC | LOC: WOUNDCARE 14:25 | PROVIDERS: ATTEND Surgery | DX: E11.621 Type 2 diabetes mellitus with foot ulcer (principal); E11.42 Type 2 diabetes mellitus with diabetic polyneuropathy; L97.524 Non-pressure chronic ulcer of other part of left foot with necrosis of bone; M86.472 Chronic osteomyelitis with draining sinus, left ankle and foot; E11.52 Type 2 diabetes mellitus with diabetic peripheral angiopathy with gangrene | CPT/HCPCS: 11044; 11047; 87070; 87205; G0463 ==

== ENCOUNTER → 2020-11-14 | Outpatient (CLI) | payer BC | LOC: WOUNDCARE 14:19 | PROVIDERS: ATTEND Surgery | DX: E11.621 Type 2 diabetes mellitus with foot ulcer (principal); E11.42 Type 2 diabetes mellitus with diabetic polyneuropathy; L97.524 Non-pressure chronic ulcer of other part of left foot with necrosis of bone; M86.472 Chronic osteomyelitis with draining sinus, left ankle and foot; E11.52 Type 2 diabetes mellitus with diabetic peripheral angiopathy with gangrene | CPT/HCPCS: 11042; G0463 ==

== ENCOUNTER → 2020-11-22 | Outpatient (CLI) | payer BC | LOC: WOUNDCARE 13:12 | PROVIDERS: ATTEND Surgery | DX: E11.621 Type 2 diabetes mellitus with foot ulcer (principal); I96 Gangrene, not elsewhere classified; E11.42 Type 2 diabetes mellitus with diabetic polyneuropathy; L97.522 Non-pressure chronic ulcer of other part of left foot with fat layer exposed; M86.472 Chronic osteomyelitis with draining sinus, left ankle and foot | CPT/HCPCS: 11042; 11045; G0463 ==

== ENCOUNTER → 2020-11-28 | Outpatient (CLI) | payer BC | LOC: WOUNDCARE 10:51 | PROVIDERS: ATTEND Surgery | DX: E11.621 Type 2 diabetes mellitus with foot ulcer (principal); I96 Gangrene, not elsewhere classified; E11.42 Type 2 diabetes mellitus with diabetic polyneuropathy; L97.522 Non-pressure chronic ulcer of other part of left foot with fat layer exposed; M86.472 Chronic osteomyelitis with draining sinus, left ankle and foot | CPT/HCPCS: 11042; 11045; G0463 ==

== ENCOUNTER → 2020-12-05 | Outpatient (CLI) | payer BC | LOC: WOUNDCARE 08:01 | PROVIDERS: ATTEND Surgery | DX: E11.621 Type 2 diabetes mellitus with foot ulcer (principal); E11.42 Type 2 diabetes mellitus with diabetic polyneuropathy; L97.522 Non-pressure chronic ulcer of other part of left foot with fat layer exposed; M86.471 Chronic osteomyelitis with draining sinus, right ankle and foot; E11.52 Type 2 diabetes mellitus with diabetic peripheral angiopathy with gangrene | CPT/HCPCS: 11042; 11045; G0463 ==

== ENCOUNTER → 2020-12-07 | Outpatient (CLI) | payer BC | LOC: WOUNDCARE 07:55 | PROVIDERS: ATTEND Surgery | DX: E11.621 Type 2 diabetes mellitus with foot ulcer (principal); I96 Gangrene, not elsewhere classified; E11.42 Type 2 diabetes mellitus with diabetic polyneuropathy; L97.522 Non-pressure chronic ulcer of other part of left foot with fat layer exposed; M86.472 Chronic osteomyelitis with draining sinus, left ankle and foot | CPT/HCPCS: 29445; A6207; G0463 ==

== ENCOUNTER → 2020-12-09 | Outpatient (CLI) | payer BC | LOC: WOUNDCARE 07:58 | PROVIDERS: ATTEND Surgery | DX: E11.621 Type 2 diabetes mellitus with foot ulcer (principal); E11.42 Type 2 diabetes mellitus with diabetic polyneuropathy; L97.522 Non-pressure chronic ulcer of other part of left foot with fat layer exposed; M86.472 Chronic osteomyelitis with draining sinus, left ankle and foot; E11.52 Type 2 diabetes mellitus with diabetic peripheral angiopathy with gangrene | CPT/HCPCS: 29445; A6207; G0463 ==

== ENCOUNTER → 2020-12-09 | Outpatient (CLI) | payer BC | LOC: WOUNDCARE 10:32 | PROVIDERS: ATTEND Surgery | DX: E11.621 Type 2 diabetes mellitus with foot ulcer (principal); E11.42 Type 2 diabetes mellitus with diabetic polyneuropathy; L97.522 Non-pressure chronic ulcer of other part of left foot with fat layer exposed; M86.472 Chronic osteomyelitis with draining sinus, left ankle and foot; E11.52 Type 2 diabetes mellitus with diabetic peripheral angiopathy with gangrene ==

== ENCOUNTER → 2020-12-12 | Outpatient (CLI) | payer BC | LOC: WOUNDCARE 08:48 | PROVIDERS: ATTEND Surgery | DX: Z53.9 Procedure and treatment not carried out, unspecified reason (principal) ==

== ENCOUNTER → 2020-12-12 | Outpatient (CLI) | payer BC | LOC: WOUNDCARE 12:15 | PROVIDERS: ATTEND Surgery | DX: I96 Gangrene, not elsewhere classified (principal); L97.512 Non-pressure chronic ulcer of other part of right foot with fat layer exposed; E11.621 Type 2 diabetes mellitus with foot ulcer; E11.42 Type 2 diabetes mellitus with diabetic polyneuropathy; L97.522 Non-pressure chronic ulcer of other part of left foot with fat layer exposed; M86.472 Chronic osteomyelitis with draining sinus, left ankle and foot | CPT/HCPCS: 11042; A6197; A6253; G0463 ==

== ENCOUNTER → 2020-12-19 | Outpatient (CLI) | payer BC | LOC: WOUNDCARE 12:16 | PROVIDERS: ATTEND Surgery | DX: L97.512 Non-pressure chronic ulcer of other part of right foot with fat layer exposed (principal); E11.621 Type 2 diabetes mellitus with foot ulcer; E11.42 Type 2 diabetes mellitus with diabetic polyneuropathy; L97.522 Non-pressure chronic ulcer of other part of left foot with fat layer exposed; M86.472 Chronic osteomyelitis with draining sinus, left ankle and foot; E11.52 Type 2 diabetes mellitus with diabetic peripheral angiopathy with gangrene | CPT/HCPCS: 11042; A6253; G0463 ==

== ENCOUNTER 2020-12-21 08:15 | Outpatient (RCR) | payer BC | END 2020-12-21 12:00 | disposition home or self-care (01) | LOC: WOUNDCARE 08:15 | PROVIDERS: ATTEND Surgery | DX: E11.621 Type 2 diabetes mellitus with foot ulcer (principal); S00.431A Contusion of right ear, initial encounter; Y84.8 Other medical procedures as the cause of abnormal reaction of the patient, or of later complication, without mention of misadventure at the time of the procedure; Y82.8 Other medical devices associated with adverse incidents; E11.42 Type 2 diabetes mellitus with diabetic polyneuropathy; L97.524 Non-pressure chronic ulcer of other part of left foot with necrosis of bone; M86.472 Chronic osteomyelitis with draining sinus, left ankle and foot | CPT/HCPCS: 82947; G0277; 99183 ==

== ENCOUNTER → 2020-12-27 | Outpatient (CLI) | payer BC | LOC: WOUNDCARE 12:16 | PROVIDERS: ATTEND Surgery | DX: L97.512 Non-pressure chronic ulcer of other part of right foot with fat layer exposed (principal); E11.621 Type 2 diabetes mellitus with foot ulcer; M86.472 Chronic osteomyelitis with draining sinus, left ankle and foot; E11.42 Type 2 diabetes mellitus with diabetic polyneuropathy; L97.522 Non-pressure chronic ulcer of other part of left foot with fat layer exposed; T70.0XXA Otitic barotrauma, initial encounter; E11.52 Type 2 diabetes mellitus with diabetic peripheral angiopathy with gangrene | CPT/HCPCS: 11042; A6253; G0463 ==

== ENCOUNTER → 2021-01-02 | Outpatient (CLI) | payer BC | LOC: WOUNDCARE 11:20 | PROVIDERS: ATTEND Surgery | DX: I96 Gangrene, not elsewhere classified (principal); L97.512 Non-pressure chronic ulcer of other part of right foot with fat layer exposed; T70.0XXA Otitic barotrauma, initial encounter; E11.621 Type 2 diabetes mellitus with foot ulcer; M86.472 Chronic osteomyelitis with draining sinus, left ankle and foot; E11.42 Type 2 diabetes mellitus with diabetic polyneuropathy; L97.522 Non-pressure chronic ulcer of other part of left foot with fat layer exposed | CPT/HCPCS: 11042; A6207; A6253; G0463 ==

== ENCOUNTER → 2021-01-06 | Outpatient (CLI) | payer BC | LOC: WOUNDCARE 09:49 | PROVIDERS: ATTEND Surgery | DX: L97.512 Non-pressure chronic ulcer of other part of right foot with fat layer exposed (principal); E11.621 Type 2 diabetes mellitus with foot ulcer; M86.472 Chronic osteomyelitis with draining sinus, left ankle and foot; E11.42 Type 2 diabetes mellitus with diabetic polyneuropathy; L97.522 Non-pressure chronic ulcer of other part of left foot with fat layer exposed; T70.0XXA Otitic barotrauma, initial encounter; E11.52 Type 2 diabetes mellitus with diabetic peripheral angiopathy with gangrene | CPT/HCPCS: 29445; A6253; G0463 ==

== ENCOUNTER → 2021-01-09 | Outpatient (CLI) | payer BC | LOC: WOUNDCARE 10:45 | PROVIDERS: ATTEND Surgery | DX: E11.621 Type 2 diabetes mellitus with foot ulcer (principal); I96 Gangrene, not elsewhere classified; E11.42 Type 2 diabetes mellitus with diabetic polyneuropathy; L97.522 Non-pressure chronic ulcer of other part of left foot with fat layer exposed; M86.472 Chronic osteomyelitis with draining sinus, left ankle and foot | CPT/HCPCS: 15275; A6253; G0463 ==

== ENCOUNTER → 2021-01-13 | Outpatient (CLI) | payer BC | LOC: WOUNDCARE 09:04 | PROVIDERS: ATTEND Surgery | DX: E11.621 Type 2 diabetes mellitus with foot ulcer (principal); E11.42 Type 2 diabetes mellitus with diabetic polyneuropathy; L97.522 Non-pressure chronic ulcer of other part of left foot with fat layer exposed; M86.472 Chronic osteomyelitis with draining sinus, left ankle and foot; E11.52 Type 2 diabetes mellitus with diabetic peripheral angiopathy with gangrene | CPT/HCPCS: 29445; A6197; A6253; G0463 ==

== ENCOUNTER → 2021-01-18 | Outpatient (CLI) | payer BC | LOC: WOUNDCARE 09:17 | PROVIDERS: ATTEND Surgery | DX: E11.621 Type 2 diabetes mellitus with foot ulcer (principal); E11.42 Type 2 diabetes mellitus with diabetic polyneuropathy; L97.522 Non-pressure chronic ulcer of other part of left foot with fat layer exposed; M86.472 Chronic osteomyelitis with draining sinus, left ankle and foot; E11.52 Type 2 diabetes mellitus with diabetic peripheral angiopathy with gangrene | CPT/HCPCS: 15275; G0463; L4360 ==

== ENCOUNTER → 2021-01-25 | Outpatient (CLI) | payer BC | LOC: WOUNDCARE 08:52 | PROVIDERS: ATTEND Surgery | DX: E11.621 Type 2 diabetes mellitus with foot ulcer (principal); I96 Gangrene, not elsewhere classified; E11.42 Type 2 diabetes mellitus with diabetic polyneuropathy; L97.522 Non-pressure chronic ulcer of other part of left foot with fat layer exposed; M86.472 Chronic osteomyelitis with draining sinus, left ankle and foot | CPT/HCPCS: 15275; G0463 ==

== ENCOUNTER → 2021-01-31 | Outpatient (CLI) | payer BC | LOC: WOUNDCARE 13:05 | PROVIDERS: ATTEND Surgery | DX: E11.621 Type 2 diabetes mellitus with foot ulcer (principal); I96 Gangrene, not elsewhere classified; E11.42 Type 2 diabetes mellitus with diabetic polyneuropathy; L97.522 Non-pressure chronic ulcer of other part of left foot with fat layer exposed; M86.472 Chronic osteomyelitis with draining sinus, left ankle and foot | CPT/HCPCS: 15275; G0463 ==

== ENCOUNTER → 2021-02-07 | Outpatient (CLI) | payer BC | LOC: WOUNDCARE 13:32 | PROVIDERS: ATTEND Surgery | DX: L03.116 Cellulitis of left lower limb (principal); E11.621 Type 2 diabetes mellitus with foot ulcer; E11.42 Type 2 diabetes mellitus with diabetic polyneuropathy; L97.522 Non-pressure chronic ulcer of other part of left foot with fat layer exposed; M86.472 Chronic osteomyelitis with draining sinus, left ankle and foot; E11.52 Type 2 diabetes mellitus with diabetic peripheral angiopathy with gangrene | CPT/HCPCS: 11042; A6207; G0463 ==

== ENCOUNTER → 2021-02-15 | Outpatient (CLI) | payer BC | LOC: WOUNDCARE 13:11 | PROVIDERS: ATTEND Surgery | DX: E11.621 Type 2 diabetes mellitus with foot ulcer (principal); E11.42 Type 2 diabetes mellitus with diabetic polyneuropathy; L97.522 Non-pressure chronic ulcer of other part of left foot with fat layer exposed; M86.472 Chronic osteomyelitis with draining sinus, left ankle and foot; E11.52 Type 2 diabetes mellitus with diabetic peripheral angiopathy with gangrene | CPT/HCPCS: 11042; G0463 ==

== ENCOUNTER → 2021-02-21 | Outpatient (CLI) | payer BC | LOC: WOUNDCARE 08:10 | PROVIDERS: ATTEND Surgery | DX: E11.621 Type 2 diabetes mellitus with foot ulcer (principal); E11.42 Type 2 diabetes mellitus with diabetic polyneuropathy; L97.522 Non-pressure chronic ulcer of other part of left foot with fat layer exposed; M86.472 Chronic osteomyelitis with draining sinus, left ankle and foot; E11.52 Type 2 diabetes mellitus with diabetic peripheral angiopathy with gangrene | CPT/HCPCS: 11042; G0463 ==

== ENCOUNTER → 2021-02-22 | Outpatient (CLI) | payer BC ==
[~2021-02-22] MED LIST changes: +CATHETER FLUSH 10 ML SYR IV PRN; +REGADENOSON 0.4 MG/5 ML SYR (LEXISCAN) IV ONE
[2021-02-22 09:06] VITALS: BP 148/72
[2021-02-22 09:24] VITALS: BP 139/63
--- NOTE | 2021-02-22 12:33 | Cardiology Stress Test Report ---
Stress Test Report Date of Procedure/Referring: Date of Procedure: Feb 22, 2021 PCP Carmina Macias MD Admitting Physician Mayte Hernandez MD Indications: CP Baseline Heart Rate: 65 Baseline Blood Pressure: Blood Pressure Systolic: 139 Blood Pressure Diastolic: 63 Baseline Vitals Vital Signs Date Time Temp Pulse Resp B/P (MAP) Pulse Ox O2 Delivery O2 Flow Rate FiO2 02/22/21 09:06 67 17 148/72 (97) 98 Room Air Baseline EKG: Baseline EKG: NSR Summary After explaining the procedure to the patient, she signed a consent and then brought to the stress nuclear laboratory. Patient received 0.4 mg Lexiscan for stress test, ECG, heart rate and blood pressure were monitored continuously. Resting and stress dose of radio tracer were injected, imaging was acquired and reviewed in short axis, horizontal long axis and vertical long axis views. TID: 1.07 SSS: 9 SDS: 4 EF: 70 1. Patient tolerated Lexiscan well 2. Breast attenuation with mild reversible ischemia involving the mid to apical anterior wall, anterolateral and inferolateral wall 3. Normal left ventricular size, normal contractility, ejection fraction 70% CARMINA MACIAS MD Feb 22, 2021 12:33
== END ==
LOC: CARD 07:32
PROVIDERS: ATTEND Internal Medicine Cardiovascular Disease
DX: I25.10 Atherosclerotic heart disease of native coronary artery without angina pectoris (principal); I10 Essential (primary) hypertension
CPT/HCPCS: 78452; 93017; A9502

== ENCOUNTER → 2021-02-28 | Outpatient (CLI) | payer BC ==
[~2021-02-28] MED LIST changes: -CATHETER FLUSH 10 ML SYR IV PRN; -REGADENOSON 0.4 MG/5 ML SYR (LEXISCAN) IV ONE
== END ==
LOC: WOUNDCARE 08:53
PROVIDERS: ATTEND Surgery
DX: E11.621 Type 2 diabetes mellitus with foot ulcer (principal); E11.42 Type 2 diabetes mellitus with diabetic polyneuropathy; E11.52 Type 2 diabetes mellitus with diabetic peripheral angiopathy with gangrene; L97.522 Non-pressure chronic ulcer of other part of left foot with fat layer exposed; M86.472 Chronic osteomyelitis with draining sinus, left ankle and foot
CPT/HCPCS: 11042; G0463

== ENCOUNTER → 2021-03-07 | Outpatient (CLI) | payer BC ==
[~2021-03-07] MED LIST changes: +ASPI-1238 PO; +CLOP75TA28 PO; +ERGO80009 PO; +HYDR12.56 PO; +INSU100I29 SQ; +PANT40SU PO; +SERT-414 PO
== END ==
LOC: WOUNDCARE 08:33
PROVIDERS: ATTEND Family Medicine
DX: E11.621 Type 2 diabetes mellitus with foot ulcer (principal); E11.42 Type 2 diabetes mellitus with diabetic polyneuropathy; E11.52 Type 2 diabetes mellitus with diabetic peripheral angiopathy with gangrene; L97.522 Non-pressure chronic ulcer of other part of left foot with fat layer exposed; M86.472 Chronic osteomyelitis with draining sinus, left ankle and foot
CPT/HCPCS: 11042; G0463

== ENCOUNTER 2021-03-08 11:00 | Day surgery (SDC) | payer BC ==
[~2021-03-08] VITALS: Ht 170 cm; Wt 102.0 kg
--- NOTE | 2021-03-08 09:31 | Diagnostic Imaging Report ---
INDICATION: Abnormal thallium stress. Chest pain. COMPARISON: 07/15/2014. FINDINGS: A frontal view of the chest demonstrates clear lungs bilaterally. The heart size is normal. There is no pneumothorax. Osseous structures are normal. IMPRESSION: No acute findings. Normal chest. Dictated by: Dictated on workstation # [id number]
[2021-03-08 09:33] LABS: HEMATOCRIT 36 % (35-52); HEMOGLOBIN 12.5 g/dL (11.5-16.0); MEAN CORPUSCULAR HEMOGLOBIN 30 pg (25-34); MEAN CORPUSCULAR HGB CONC 35 g/dL (32-36); MEAN CORPUSCULAR VOLUME 84 fL (80-99); MEAN PLATELET VOLUME 9.7 fL (9.0-12.2); PLATELET COUNT 262 10^3/uL (130-400); WHITE BLOOD COUNT 6.1 10^3/uL (4.3-11.0)
[2021-03-08 09:40] VITALS: BP 136/76
[2021-03-08 09:45] LABS: PROTHROMBIN TIME PATIENT 13.9 SEC (12.2-14.7)
[2021-03-08 09:54] LABS: ALBUMIN 4.3 GM/DL (3.2-4.5); BILIRUBIN,TOTAL 0.4 MG/DL (0.1-1.0); CALCIUM 9.8 MG/DL (8.5-10.1); CREATININE SERUM 0.77 MG/DL (0.60-1.30); POTASSIUM 4.2 MMOL/L (3.6-5.0); TOTAL PROTEIN 7.6 GM/DL (6.4-8.2)
[~2021-03-08 11:00] MED LIST changes: -ASPI-1238 PO; -CLOP75TA28 PO; +HEParin (CATH LAB) 2,000 ML IV ONE; +LIDOCAINE 1% INJ 20 ML 20 ML VIAL ONE; +NS IV 1000 ML 1,000 ML ONE; -PANT40SU PO
--- NOTE | 2021-03-08 12:02 | Conscious Sedation/ASA ---
Conscious Sedation Pre-Proced Time 12:02 ASA Score 3 For ASA 3 and 4: Consider anesthesia and medical clearance. Also, for patients with a history of failed moderate sedation consider anesthesia. Airway Lungs Heart ASA score ASA 1: a normal healthy patient ASA 2: a patient with a mild systemic disease (mid diabetes, controlled hypertension, obesity x ASA 3: a patient with a severe systemic disease that limits activity (angina, COPD, prior Myocardial infarction) ASA 4: a patient with an incapacitating disease that is a constant threat to life (CHF, renal failure) ASA 5: a moribund patient not expected to survive 24 hrs. (ruptured aneurysm) ASA 6: a declared brain- patient whose organs are being harvested. For emergent operations, add the letter E after the classification Mallampati Classification Grade 3 Sedation Plan Analgesia, Amnesia, Plan communicated to team members, Discussed options with patient/fam, Discussed risks with patient/fam The patient is an appropriate candidate to undergo the planned procedure, sedation, and anesthesia. The patient immediately re-assessed prior to indication. CARMINA FUNES MD Mar 08, 2021 12:02
[2021-03-08] MEDS ORDERED: MIDAZOLAM 5 MG/5 ML (VERSED) VIAL ONE (12:10)
[2021-03-08] MEDS ORDERED: fentaNYL INJ 100 MCG/2 ML AMP ONE (12:10)
[2021-03-08] MEDS ORDERED: HEParin 1000 UNIT/ML (10ML VIAL) FOR BOLUS ONE (12:33)
[2021-03-08] MEDS ORDERED: NITRO DRIP 25000 MCG/D5W 0 ML IV ONE (12:45)
[2021-03-08] MEDS ORDERED: CLOPIDOGREL 300 MG (PLAVIX) TABLET PO ONE ×2 (12:46→12:53)
[2021-03-08] MEDS ORDERED: ASPIRIN 325 MG (5 GR) TABLET ONE (12:46)
--- NOTE | 2021-03-08 12:55 | Cardiac Cath Report ---
Cardiac Cath Report Physician (s)/Laborer Cheesemaking (s) Physician CARMINA FUNES MD Pre-Procedure Diagnosis Pre-Procedure Diagnosis: Coronary artery disease Post-Procedure Note Procedure Start Date: Mar 08, 2021 Name of Procedure: Left heart catheterization Stenting to the left circumflex artery Findings/Procedure Note PROCEDURE NOTE: 65-year-old lady with history of chest pain, has been having abnormal stress test, hypertension hyperlipidemia scheduled for cardiac catheterization possible PTCA. After explaining the procedure to the patient, all pros and cons were explained, all questions were answered. The patient signed the consent and then she was placed on the cardiac catheterization laboratory. Groin was prepped SL fashion local anesthesia was used. Sheath placed in the right femoral artery. Marty right and left catheter were used to access the coronary system. Marty right catheter was prolapsed to the left ventricular cavity, pressure was measured and pullback LV to aorta was done. Patient was given 5000 units of heparin, FL guide was advanced to the left coronary system and BMW wire was advanced to the distal circumflex artery patient has severe stenosis at the mid circumflex artery. I attempted to advance a stent through the lesion without success subsequently I retracted the stent and did balloon dilatation using 2.5 x 20 mm balloon then proceeded with advancement of the stent to the mid circumflex artery using Karis 2.5 x 18 mm deployed under 12 christine with excellent results At the end of the procedure the sheath was removed. Closure device was deployed FINDINGS: Hemodynamics LV 131/14, end-diastolic pressure of 14 Aorta 122/57 mean of 72 ANATOMY: Left Main is free of obstructive disease Left Anterior Descending is mildly calcified with mild to moderate disease in the midportion nonobstructive disease Left Circumflex has severe stenosis at the midportion successful balloon angioplasty then deployment of Karis 2.5 x 18 mm up to 2.6 mm with excellent results Right Coronary Artery is moderate in size with no obstructive disease LV Gram was not done, pressure was measured CONCLUSION: 1. Severe stenosis in the mid circumflex artery successful stenting using Karis 2.5 x 18 mm expanded to 2.6 mm with excellent results 2. Calcified LAD with mild to moderate disease in the midportion nonobstructive disease, mild disease in the right coronary artery 3. Normal left ventricular end-diastolic pressure DISCUSSION AND RECOMMENDATION: Maximize medical therapy. Started on aspirin and Plavix in addition to the Eliquis for now. Estimated blood loss (mL): 25 ml Contrast Amount: 107 ml Total Radiation Dose: 900 mGy Post-Procedure Diagnosis Post-operative diagnosis: Chest pain Coronary artery disease Hypertension Hyperlipidemia CARMINA FUNES MD Mar 08, 2021 12:55
[2021-03-08] MEDS ORDERED: PATIENT MAY USE OWN MEDS, ALL PO SCH (13:00)
[2021-03-08] MEDS ORDERED: ERGOCALCIFEROL PO SCH (13:00)
[2021-03-08] MEDS ORDERED: ALPRAZolam 0.25 MG (XANAX) TAB PO PRN (13:00)
[2021-03-08] MEDS ORDERED: ACETAMINOPHEN 500 MG TAB (TYLENOL) PO PRN (13:00)
[2021-03-08 13:20] VITALS: BP 134/64
[2021-03-08] MEDS ORDERED: hydrALAZINE (APRESOLINE) 25 MG TAB PO SCH (14:00)
[2021-03-08] MEDS: NS IV 1000 ML 1,000 ML IV SCH ×2 (14:39→23:12)
[2021-03-08 15:41] VITALS: BP 145/98
[2021-03-08 20:00] VITALS: BP 129/54
[2021-03-08] MEDS: APIXABAN 5 MG (ELIQUIS) TABLET PO SCH (20:48)
[2021-03-08 23:25] VITALS: BP 107/64
[2021-03-08] MEDS: hydrALAZINE (APRESOLINE) 25 MG TAB PO SCH (23:26)
[2021-03-09 04:10] VITALS: BP 121/74
[2021-03-09 04:49] LABS: HEMATOCRIT 32 % (35-52); HEMOGLOBIN 11.2 g/dL (11.5-16.0); MEAN CORPUSCULAR HEMOGLOBIN 30 pg (25-34); MEAN CORPUSCULAR HGB CONC 35 g/dL (32-36); MEAN CORPUSCULAR VOLUME 85 fL (80-99); MEAN PLATELET VOLUME 9.7 fL (9.0-12.2); PLATELET COUNT 234 10^3/uL (130-400); WHITE BLOOD COUNT 5.9 10^3/uL (4.3-11.0)
[2021-03-09 05:03] LABS: POTASSIUM 4.2 MMOL/L (3.6-5.0)
[2021-03-09 05:04] LABS: CALCIUM 9.2 MG/DL (8.5-10.1)
[2021-03-09 05:09] LABS: CREATININE SERUM 0.7 MG/DL (0.60-1.30)
[2021-03-09] MEDS: hydrALAZINE (APRESOLINE) 25 MG TAB PO SCH (06:16)
[2021-03-09] MEDS ORDERED: METF-397 PO (06:27)
[2021-03-09] MEDS ORDERED: CLOP75TA28 PO (06:27)
[2021-03-09] MEDS ORDERED: PANT40SU PO (06:27)
[2021-03-09] MEDS ORDERED: ASPI-1238 PO (06:27)
--- NOTE | 2021-03-09 06:28 | Discharge Inst-Post CATH ---
Discharge Inst-CATH/EP Problems Reviewed?: Yes Post Cardiac Cath/EP D/C Inst Follow Up/Plan Hold Metformin for [address] Macias in 2-4 weeks <b>CARDIAC CATH/EP PROCEDURE DISCHARGE INSTRUCTIONS</b> ACTIVITY * Go Home directly and rest. * Limit activity of the leg (or wrist if it was used) for 7 days including aerobics, swimming, jogging, bicycling, etc. * Restrict stair-climbing for 7 days if possible, if not, climb up with your non-cath leg, then bring together on the same step. * Avoid lifting, pushing, pulling or excessive movement of the affected extremity for 7 days. * Customary sexual activity may be resumed after 2 days-use caution not to use a position that strains or causes pain to the affected extremity. * No driving for 24 hours. * NO SMOKING. * Avoid straining for bowel movements for 7 days. * Gentle walking on level ground is allowed. * Returning to work will depend on the type of procedure and the results. Your doctor will discuss this with you. CALL YOUR DOCTOR FOR ANY OF THE FOLLOWING: *If bleeding from the puncture site occurs- Apply gentle pressure to site with clean cloth and call your doctor or EMS. * If a knot or lump forms under the skin, increases in size, or causes pain. * If bruising appears to be worsening or moving further down your leg instead of disappearing. * Temperature above 101 F. CARE OF YOUR GROIN INCISION; * Bruising or purple discoloration of the skin near the puncture site is common. * You may shower only, no bathtub bathing for 5 days. Be careful to avoid slipping as your leg may feel stiff. * If a closure device was used on your femoral artery, please see the attached guide regarding care of the device and your leg. * Leave dressing on FOR 24 hours. CARE OF YOUR WRIST INCISION; * Bruising or purple discoloration of the skin near the puncture site is common. * You may shower. * DO NOT submerge wrist. * Leave dressing on FOR 24 hours. CARMINA MACIAS MD Mar 09, 2021 06:28
[2021-03-09] MEDS: APIXABAN 5 MG (ELIQUIS) TABLET PO SCH (07:51)
[2021-03-09 07:54] VITALS: BP 122/82
--- NOTE | 2021-03-09 08:33 | Cardiology Progress Note ---
Subjective Date Seen by Provider: Mar 09, 2021 Time Seen by Provider: 08:32 Subjective/Events-last exam Patient is laying down in bed, feeling well. No new complaint. No chest pain, groin is healing well Review of Systems General: No Chills, No Night Sweats, No Fatigue, No Malaise, No Appetite, No Other HEENT: No Head Aches, No Visual Changes, No Eye Pain, No Ear Pain, No Dysphasia, No Sinus Congestion, No Post Nasal Drip, No Sore Throat, No Other Pulmonary: No Dyspnea, No Cough, No Pleuritic Chest Pain, No Other Cardiovascular: No: Chest Pain, Palpitations, Orthopnea, Paroxysmal Noc. Dyspnea, Edema, Lt Headedness, Other Objective-Cardiology Exam Last Set of Vital Signs Vital Signs 03/09/21 03/09/21 07:54 07:56 Temp 36.6 Pulse 68 Resp 18 B/P (MAP) 122/82 (95) Pulse Ox 98 O2 Delivery Room Air I&O Intake and Output 03/09/21 00:00 Intake Total 600 ml Balance 600 ml Intake Oral 600 ml General: Alert, Oriented X3, Cooperative HEENT: Atraumatic, PERRLA Neck: Supple, No JVD, No Thyromegaly Lungs: Clear to Auscultation, Normal Air Movement Heart: Regular Rate, Normal S1, Normal S2, No Murmurs Abdomen: Normal Bowel Sounds, Soft, No Tenderness, No Hepatosplenomegaly, No Masses Extremities: No Clubbing, No Cyanosis, No Edema, Normal Pulses, No Tenderness/Swelling Skin: No Rashes, No Breakdown, No Significant Lesion Neuro: Normal Gait, Normal Speech, Strength at 5/5 X4 Ext, Normal Tone, Sensation Intact Psych/Mental Status: Mental Status NL, Mood NL Results Lab Laboratory Tests 03/08/21 09:19 03/09/21 04:17 A/P-Cardiology Admission Diagnosis Coronary artery disease Hypertension Hyperlipidemia Diabetes mellitus Assessment/Plan Coronary artery disease, status post stenting to the circumflex artery with excellent results. Hypertension, restart home medication monitor blood pressure Hyperlipidemia, monitor lipids Diabetes mellitus, educated on holding Metformin for 48 hours Patient will continue on aspirin, Plavix and Eliquis for now. CARMINA FUNES MD Mar 09, 2021 08:33
[2021-03-09] MEDS ORDERED: VALSARTAN 160 MG (DIOVAN) TABLET PO SCH ×2 (09:00)
[2021-03-09] MEDS ORDERED: CLOPIDOGREL 75 MG (PLAVIX) TABLET PO SCH (09:00)
[2021-03-09] MEDS ORDERED: ASPIRIN E.C. 81 MG (ECOTRIN) TAB PO SCH (09:00)
[2021-03-09] MEDS: NS IV 1000 ML 1,000 ML IV SCH (09:11)
== END 2021-03-09 10:19 | disposition home or self-care (01) ==
LOC: CATH 11:00 → CSD 13:47 → CATH 03-09 10:19
PROVIDERS: ATTEND Internal Medicine Cardiovascular Disease
DX: I25.10 Atherosclerotic heart disease of native coronary artery without angina pectoris (principal); I10 Essential (primary) hypertension; E78.5 Hyperlipidemia, unspecified; E11.9 Type 2 diabetes mellitus without complications; I48.0 Paroxysmal atrial fibrillation; D64.9 Anemia, unspecified; Z79.84 Long term (current) use of oral hypoglycemic drugs; Z79.899 Other long term (current) drug therapy; Z79.01 Long term (current) use of anticoagulants; Z79.4 Long term (current) use of insulin; Z87.891 Personal history of nicotine dependence; Z11.2 Encounter for screening for other bacterial diseases
CPT/HCPCS: 71045; 80048; 80053; 80061; 82947; 85027 ×2; 85347; 85610; 85730; 87081; 93005; 93458; C1725; C1760; C1769; C1874; C1887; C1894; C9600; 36415

== ENCOUNTER → 2021-03-14 | Outpatient (CLI) | payer BC ==
[~2021-03-14] MED LIST changes: +ASPI-1238 PO; +CLOP75TA28 PO; -HEParin (CATH LAB) 2,000 ML IV ONE; -LIDOCAINE 1% INJ 20 ML 20 ML VIAL ONE; -NS IV 1000 ML 1,000 ML ONE; +PANT40SU PO
== END ==
LOC: WOUNDCARE 08:14
PROVIDERS: ATTEND Family Medicine
DX: E11.52 Type 2 diabetes mellitus with diabetic peripheral angiopathy with gangrene (principal); E11.621 Type 2 diabetes mellitus with foot ulcer; E11.42 Type 2 diabetes mellitus with diabetic polyneuropathy; L97.522 Non-pressure chronic ulcer of other part of left foot with fat layer exposed; M86.472 Chronic osteomyelitis with draining sinus, left ankle and foot; I96 Gangrene, not elsewhere classified
CPT/HCPCS: 11042; G0463

== ENCOUNTER → 2021-03-21 | Outpatient (CLI) | payer BC | LOC: WOUNDCARE 08:09 | PROVIDERS: ATTEND Family Medicine | DX: E11.621 Type 2 diabetes mellitus with foot ulcer (principal); E11.42 Type 2 diabetes mellitus with diabetic polyneuropathy; E11.52 Type 2 diabetes mellitus with diabetic peripheral angiopathy with gangrene; L97.522 Non-pressure chronic ulcer of other part of left foot with fat layer exposed; M86.472 Chronic osteomyelitis with draining sinus, left ankle and foot | CPT/HCPCS: 11042; G0463 ==

== ENCOUNTER → 2021-03-28 | Outpatient (CLI) | payer BC | LOC: WOUNDCARE 08:56 | PROVIDERS: ATTEND Family Medicine | DX: E11.621 Type 2 diabetes mellitus with foot ulcer (principal); E11.42 Type 2 diabetes mellitus with diabetic polyneuropathy; L97.522 Non-pressure chronic ulcer of other part of left foot with fat layer exposed; M86.472 Chronic osteomyelitis with draining sinus, left ankle and foot; L03.116 Cellulitis of left lower limb; E11.52 Type 2 diabetes mellitus with diabetic peripheral angiopathy with gangrene | CPT/HCPCS: 11042; G0463 ==

== ENCOUNTER 2021-04-05 07:53 | Day surgery (SDC) | payer BC ==
[~2021-04-05] VITALS: Ht 170 cm; Wt 105.0 kg
[2021-04-05] MEDS ORDERED: LIDOCAINE 1% INJ 20 ML 20 ML VIAL ONE (07:56)
[2021-04-05] MEDS ORDERED: LIDOCAINE 1% INJ 20 ML 20 ML VIAL INJ ONE (08:00)
[2021-04-05 08:15] VITALS: BP 148/80
--- NOTE | 2021-04-05 08:21 | Implantation of Loop Monitor ---
Implant of Loop Monitior IMPLANTATION OF LOOP MONITOR REPORT DATE OF PROCEDURE: 04/05/21 PREOP DIAGNOSIS: Paroxysmal atrial fibrillation POSTOP DIAGNOSIS: Paroxysmal atrial fibrillation PROCEDURE DETAILS: The patient is a 66 female with history of paroxysmal atrial fibrillation requiring long-term surveillance. Therefore implantable loop recorder was discussed and agreed with the patient. Informed consent was taken. All risks and complications were discussed at length. The patient was draped and prepped in the usual sterile fashion. Local anesthesia was lidocaine, which was given in the substernal area close to the 4th intercostal space. Loop monitor [employer] with serial number [id number] was implanted according to the protocol. Steri- Strips were placed at the end of the procedure. There were no complications and the patient tolerated the procedure well. ANESTHESIA: Local anesthesia with lidocaine. COMPLICATIONS: None CONTRAST/FLUOROSCOPY: None CONCLUSION: Successful implantation of loop monitor with no complication FINAL DIAGNOSIS: Paroxysmal atrial fibrillation Palpitation Hypertension CARMINA FUNES MD Apr 05, 2021 08:20
== END 2021-04-05 08:30 ==
LOC: CATH 07:53
PROVIDERS: ATTEND Internal Medicine Cardiovascular Disease
DX: I48.0 Paroxysmal atrial fibrillation (principal); I10 Essential (primary) hypertension; E78.5 Hyperlipidemia, unspecified; D64.9 Anemia, unspecified; E11.9 Type 2 diabetes mellitus without complications; E11.621 Type 2 diabetes mellitus with foot ulcer; Z79.02 Long term (current) use of antithrombotics/antiplatelets; Z79.01 Long term (current) use of anticoagulants; Z79.891 Long term (current) use of opiate analgesic; Z79.899 Other long term (current) drug therapy; Z87.891 Personal history of nicotine dependence
CPT/HCPCS: 33285; C1764

== ENCOUNTER → 2021-04-05 | Outpatient (CLI) | payer BC | LOC: WOUNDCARE 08:33 | PROVIDERS: ATTEND Family Medicine | DX: E11.621 Type 2 diabetes mellitus with foot ulcer (principal); E11.52 Type 2 diabetes mellitus with diabetic peripheral angiopathy with gangrene; E11.42 Type 2 diabetes mellitus with diabetic polyneuropathy; L97.522 Non-pressure chronic ulcer of other part of left foot with fat layer exposed; I96 Gangrene, not elsewhere classified; M86.472 Chronic osteomyelitis with draining sinus, left ankle and foot; L03.116 Cellulitis of left lower limb | CPT/HCPCS: 11042; A6021; G0463 ==

== ENCOUNTER → 2021-04-11 | Outpatient (CLI) | payer BC | LOC: WOUNDCARE 08:22 | PROVIDERS: ATTEND Family Medicine | DX: E11.621 Type 2 diabetes mellitus with foot ulcer (principal); E11.42 Type 2 diabetes mellitus with diabetic polyneuropathy; L97.522 Non-pressure chronic ulcer of other part of left foot with fat layer exposed; M86.472 Chronic osteomyelitis with draining sinus, left ankle and foot; L03.116 Cellulitis of left lower limb; E11.52 Type 2 diabetes mellitus with diabetic peripheral angiopathy with gangrene | CPT/HCPCS: 11042; G0463 ==

== ENCOUNTER → 2021-04-27 | Outpatient (CLI) | payer BC | LOC: WOUNDCARE 08:15 | PROVIDERS: ATTEND Family Medicine | DX: E11.621 Type 2 diabetes mellitus with foot ulcer (principal); E11.42 Type 2 diabetes mellitus with diabetic polyneuropathy; L97.522 Non-pressure chronic ulcer of other part of left foot with fat layer exposed; M86.472 Chronic osteomyelitis with draining sinus, left ankle and foot; E11.52 Type 2 diabetes mellitus with diabetic peripheral angiopathy with gangrene | CPT/HCPCS: 11042; G0463 ==

== ENCOUNTER → 2021-05-04 | Outpatient (CLI) | payer BC | LOC: WOUNDCARE 08:21 | PROVIDERS: ATTEND Family Medicine | DX: E11.621 Type 2 diabetes mellitus with foot ulcer (principal); E11.42 Type 2 diabetes mellitus with diabetic polyneuropathy; L97.522 Non-pressure chronic ulcer of other part of left foot with fat layer exposed; M86.472 Chronic osteomyelitis with draining sinus, left ankle and foot; E11.52 Type 2 diabetes mellitus with diabetic peripheral angiopathy with gangrene | CPT/HCPCS: 11042; G0463 ==

== ENCOUNTER → 2021-05-09 | Outpatient (CLI) | payer BC | LOC: WOUNDCARE 08:58 | PROVIDERS: ATTEND Family Medicine | DX: E11.621 Type 2 diabetes mellitus with foot ulcer (principal); E11.42 Type 2 diabetes mellitus with diabetic polyneuropathy; L97.522 Non-pressure chronic ulcer of other part of left foot with fat layer exposed; M86.472 Chronic osteomyelitis with draining sinus, left ankle and foot; E11.52 Type 2 diabetes mellitus with diabetic peripheral angiopathy with gangrene | CPT/HCPCS: 11042; G0463 ==

== ENCOUNTER → 2021-05-15 | Outpatient (CLI) | payer BC | LOC: WOUNDCARE 08:51 | PROVIDERS: ATTEND Family Medicine | DX: E11.621 Type 2 diabetes mellitus with foot ulcer (principal); E11.42 Type 2 diabetes mellitus with diabetic polyneuropathy; L97.522 Non-pressure chronic ulcer of other part of left foot with fat layer exposed; M86.472 Chronic osteomyelitis with draining sinus, left ankle and foot; E11.52 Type 2 diabetes mellitus with diabetic peripheral angiopathy with gangrene | CPT/HCPCS: 11042; G0463 ==

== ENCOUNTER → 2021-05-22 | Outpatient (CLI) | payer BC | LOC: WOUNDCARE 08:47 | PROVIDERS: ATTEND Family Medicine | DX: E11.621 Type 2 diabetes mellitus with foot ulcer (principal); E11.42 Type 2 diabetes mellitus with diabetic polyneuropathy; E11.52 Type 2 diabetes mellitus with diabetic peripheral angiopathy with gangrene; L97.522 Non-pressure chronic ulcer of other part of left foot with fat layer exposed; M86.472 Chronic osteomyelitis with draining sinus, left ankle and foot | CPT/HCPCS: 11042; G0463 ==

== ENCOUNTER → 2021-05-29 | Outpatient (CLI) | payer BC | LOC: WOUNDCARE 08:53 | PROVIDERS: ATTEND Family Medicine | DX: E11.621 Type 2 diabetes mellitus with foot ulcer (principal); E11.42 Type 2 diabetes mellitus with diabetic polyneuropathy; L97.522 Non-pressure chronic ulcer of other part of left foot with fat layer exposed; M86.472 Chronic osteomyelitis with draining sinus, left ankle and foot; E11.52 Type 2 diabetes mellitus with diabetic peripheral angiopathy with gangrene | CPT/HCPCS: 99212 ==

== ENCOUNTER → 2021-06-05 | Outpatient (CLI) | payer BC ==
--- NOTE | 2021-06-06 09:28 | Diagnostic Imaging Report ---
INDICATION: Diabetic foot ulcer. TIME OF EXAM: 12:46 PM Correlation is made with prior radiograph from 08/29/2020. There is a deformity involving the distal 5th metatarsal, new since exam from August. There appears to be a soft tissue defect along the lateral soft tissues at the level of the 5th MTP joint. No definite destructive changes are seen at this time to suggest osteomyelitis. There appears to be some erosive changes of the proximal aspect of the proximal phalanx of the 5th toe as well, new since August. No soft tissue gas identified. There are no fractures. IMPRESSION: Previously noted soft tissue gas in the lateral left foot has resolved. There does appear to be a skin ulcer laterally located at the level of the 5th MTP joint. There are some bony deformities of the distal 5th metatarsal as well as the proximal phalanx of the 5th toe. While these bony changes are new since the study from August, uncertain if these findings are acute versus a result of prior episode of osteomyelitis several months earlier. If there is concern for osteomyelitis, MRI of the left foot may be useful for further evaluation. Dictated by: Dictated on workstation # [id number]
[2021-06-06 10:13] LABS: CALCIUM 9.8 MG/DL (8.5-10.1); CREATININE SERUM 0.76 MG/DL (0.60-1.30); POTASSIUM 4.5 MMOL/L (3.6-5.0)
== END ==
LOC: RAD 12:06
PROVIDERS: ATTEND Family Medicine
DX: E11.621 Type 2 diabetes mellitus with foot ulcer (principal); M20.5X2 Other deformities of toe(s) (acquired), left foot
CPT/HCPCS: 36415; 73630; 80048; 85652; 86141

== ENCOUNTER → 2021-06-05 | Outpatient (CLI) | payer BC | LOC: WOUNDCARE 10:58 | PROVIDERS: ATTEND Family Medicine | DX: E11.621 Type 2 diabetes mellitus with foot ulcer (principal); E11.42 Type 2 diabetes mellitus with diabetic polyneuropathy; L97.522 Non-pressure chronic ulcer of other part of left foot with fat layer exposed; M86.472 Chronic osteomyelitis with draining sinus, left ankle and foot; L03.116 Cellulitis of left lower limb; E11.52 Type 2 diabetes mellitus with diabetic peripheral angiopathy with gangrene | CPT/HCPCS: 11042; 73630; G0463 ==

== ENCOUNTER → 2021-06-08 | Outpatient (CLI) | payer BC ==
[~2021-06-08] MED LIST changes: +GADOTERATE 0.5 MMOL/ML (CLARISCAN) 20 ML VIAL IV ONE
--- NOTE | 2021-06-08 13:22 | Diagnostic Imaging Report ---
PROCEDURE: MRI left lower extremity with and without contrast. TECHNIQUE: Multiplanar, multisequence pre and post contrast-enhanced MRI of the left lower extremity was accomplished. INDICATION: Ulceration on the 5th toe of the left foot. Osteomyelitis. COMPARISON: Radiographs from 06/05/2021 FINDINGS: No acute fracture is seen in the left foot. There is deformity of the 5th metatarsal head as seen previously. There is cortical erosion and deformity of the 5th proximal phalangeal base with bone marrow edema and T1-weighted hypointensity of the base and shaft consistent with osteomyelitis. There are claw toe deformities of the 2nd through 4th toes. No other areas of definite osteomyelitis are seen. There is advanced degenerative change in the midfoot at the tarsometatarsal joints with associated bone marrow edema. This could be an early Charcot arthropathy. Osteomyelitis has a similar appearance, but is thought less likely. There is soft tissue edema and enhancement about the 5th toe, with synovial thickening and enhancement of the 5th metatarsophalangeal joint. The tendons and ligaments are suboptimally evaluated, but no definite tear is seen. No increased fluid is appreciated in the tendon sheath. There is generalized muscular atrophy which is likely neurogenic. IMPRESSION: 1. Osteomyelitis of the left 5th toe proximal phalanx. Deformity with likely osteomyelitis of the 5th metacarpal head. Findings suggestive of septic arthritis of the 5th metatarsophalangeal joint. 2. Advanced degenerative changes in the midfoot at the tarsometatarsal joints, may represent an early Charcot arthropathy. Infection could have a similar appearance but is thought less likely. Dictated by: Dictated on workstation # [id number]
== END ==
LOC: RAD 13:15
PROVIDERS: ATTEND Family Medicine
DX: M86.472 Chronic osteomyelitis with draining sinus, left ankle and foot (principal); M19.072 Primary osteoarthritis, left ankle and foot; E11.621 Type 2 diabetes mellitus with foot ulcer; E11.42 Type 2 diabetes mellitus with diabetic polyneuropathy; L97.522 Non-pressure chronic ulcer of other part of left foot with fat layer exposed; L03.116 Cellulitis of left lower limb
CPT/HCPCS: 73720

== ENCOUNTER → 2021-06-12 | Outpatient (CLI) | payer BC ==
[~2021-06-12] MED LIST changes: -GADOTERATE 0.5 MMOL/ML (CLARISCAN) 20 ML VIAL IV ONE
== END ==
LOC: WOUNDCARE 08:45
PROVIDERS: ATTEND Family Medicine
DX: E11.621 Type 2 diabetes mellitus with foot ulcer (principal); E11.42 Type 2 diabetes mellitus with diabetic polyneuropathy; L97.522 Non-pressure chronic ulcer of other part of left foot with fat layer exposed; M86.472 Chronic osteomyelitis with draining sinus, left ankle and foot
CPT/HCPCS: 99213

== ENCOUNTER 2021-06-14 11:05 | Outpatient (RCR) | payer BC ==
[~2021-06-14] VITALS: Ht 170.2 cm; Wt 102.3 kg
[2021-06-14] MEDS ORDERED: CEFEPIME 2,000 MG/NS 50 ML IVPB IV ONE ×2 (11:45)
[2021-06-14 12:00] VITALS: BP 152/58
== END 2021-06-19 | disposition home or self-care (01) ==
LOC: SDC 11:05
PROVIDERS: ATTEND Family Medicine
DX: E11.621 Type 2 diabetes mellitus with foot ulcer (principal); E11.42 Type 2 diabetes mellitus with diabetic polyneuropathy; L97.522 Non-pressure chronic ulcer of other part of left foot with fat layer exposed; M86.472 Chronic osteomyelitis with draining sinus, left ankle and foot
CPT/HCPCS: 36569; 76937; 96365; C1751

== ENCOUNTER → 2021-06-26 | Outpatient (CLI) | payer BC | LOC: WOUNDCARE 08:51 | PROVIDERS: ATTEND Family Medicine | DX: E11.621 Type 2 diabetes mellitus with foot ulcer (principal); E11.42 Type 2 diabetes mellitus with diabetic polyneuropathy; L97.522 Non-pressure chronic ulcer of other part of left foot with fat layer exposed; M86.472 Chronic osteomyelitis with draining sinus, left ankle and foot | CPT/HCPCS: 99212 ==

== ENCOUNTER → 2021-07-10 | Outpatient (CLI) | payer BC | LOC: WOUNDCARE 08:52 | PROVIDERS: ATTEND Family Medicine | DX: E11.621 Type 2 diabetes mellitus with foot ulcer (principal); E11.42 Type 2 diabetes mellitus with diabetic polyneuropathy; L97.522 Non-pressure chronic ulcer of other part of left foot with fat layer exposed; M86.472 Chronic osteomyelitis with draining sinus, left ankle and foot | CPT/HCPCS: 99212 ==

== ENCOUNTER 2021-08-03 05:38 | Outpatient (CLI) | payer BC ==
[~2021-08-03] VITALS: Ht 170.2 cm; Wt 111.4 kg
[2021-08-04] MEDS ORDERED: ATOR40TA70 PO (09:13)
[2021-08-04] MEDS ORDERED: SERT100T PO (09:13)
[2021-08-04] MEDS ORDERED: MECL-149 PO (09:13)
[2021-08-04] MEDS ORDERED: OMG1KC PO (09:13)
== END 2021-08-04 09:29 | disposition home or self-care (01) ==
LOC: PREOP 05:38
PROVIDERS: ATTEND Surgery
DX: Z01.818 Encounter for other preprocedural examination (principal)

== ENCOUNTER 2021-08-10 07:02 | Day surgery (SDC) | payer BC ==
[~2021-08-10] VITALS: Ht 170.2 cm; Wt 111.4 kg
[2021-08-10] VITALS (9 sets, daily range): BP systolic 109–154; BP diastolic 47–69
[~2021-08-10 07:02] MED LIST changes: +ATOR40TA70 PO; +OMG1KC PO; +SERT100T PO
[2021-08-10] MEDS ORDERED: ceFAZolin 2 GM IV Premixed 50 ML IV ONE (07:15)
[2021-08-10] MEDS ORDERED: LACTATED RINGERS 1,000 ML IV PRN (07:15)
[2021-08-10] MEDS ORDERED: LIDOCAINE/EPI 2% 1:100,00 (XYLOCAINE) 20 ML VIAL ONE (07:41)
--- NOTE | 2021-08-10 08:03 | Progress Note-Pre Operative ---
Pre-Operative Progress Note H&P Reviewed The H&P was reviewed, patient examined and no changes noted. Date Seen by Provider: Aug 10, 2021 Time Seen by Provider: 08:03 Date H&P Reviewed: Aug 10, 2021 Time H&P Reviewed: 08:03 Pre-Operative Diagnosis: left 5th toe osteomyelitis SHIVAM KHANNA DO Aug 10, 2021 08:03
[2021-08-10] MEDS ORDERED: SEVOFLURANE (ULTANE) 15 ML INHAL SOLN ONE ×2 (08:28→09:23)
[2021-08-10] MEDS ORDERED: ONDANSETRON 4 MG/2 ML (SDV) Z0FRAN ONE (08:28)
[2021-08-10] MEDS ORDERED: fentaNYL INJ 100 MCG/2 ML AMP ONE (08:28)
[2021-08-10] MEDS ORDERED: LIDOCAINE PF 2% 5 ML (XYLOCAINE) VIAL ONE (08:28)
[2021-08-10] MEDS ORDERED: MIDAZOLAM 2 MG/2 ML (VERSED) VIAL ONE (08:28)
[2021-08-10] MEDS ORDERED: proPOfol 200 MG/20 ML (DIPRIVAN) VIAL IV ONE (08:28)
[2021-08-10] MEDS ORDERED: ACHD5005 PO (09:41)
--- NOTE | 2021-08-10 09:44 | Discharge Inst-Simple/Standard ---
Discharge Inst-Standard Discharge Medications New, Converted or Re-Newed RX: Transmitted to Pharmacy Patient Instructions/Follow Up Plan of Care/Instructions/FU: Saturday and Office apointment with Omari (nurse visit). Ayad 2 weeks. Activity as Tolerated: No Discharge Diet: Regular Diet Other Inst to Patient Follow up Appt: Make appointment for 2 week. Instructions: No strenuous activity. May shower in 24 hours, no tub bath or soaking. Use incentive spirometer at home as directed. No Smoking Skin/Wound Care: You have wound vac in place. If it comes off, pack wound we to dry and notify office. You will have appointments with Omari in office on Mondays and for senait ssing changes Symptoms to Report: Appetite Changes, Extremity Discoloration, Numbness/Tingling, Swelling Increased, Bleeding Excessive, Eyesight Changes, Pain Increased, Urine Color Change, Constipation(Persistent), Fever over 101 degree F, Pain/Pressure in chest, Urinating Difficulty, Cough Up/Vomit Blood, Heart Beat Irreg/Pounding, Pain/Pressure in jaw, Vaginal Bleeding Increase, Cramps in feet or legs, Lightheadedness, Pain/Pressure in shoulder, Diarrhea(Persistent), Memory Changes Suddenly, Questions/Concerns, Weight gain consecutive days, Dizziness/Fainting, Nausea/Vomiting, Shortness of Breath, Weight gain over 2 pounds If questions or concerns contact your physician Or seek help at emergency department. SHIVAM KHANNA DO Aug 10, 2021 09:44
--- NOTE | 2021-08-10 09:50 | Progress Note-Post Operative ---
Post-Operative Progess Note Surgeon (s)/Coverstitch Machine Operator (s) Surgeon SHIVAM KHANNA DO Coverstitch Machine Operator: Eddie Dong Pre-Operative Diagnosis left 5th toe osteomyelitis Post-Operative Diagnosis same Procedure & Operative Findings Date of Procedure 08/10/21 Procedure Performed/Findings Left foot block, left 5th partial ray amputation, wound vac placement 7x3.8cm Anesthesia Type general Estimated Blood Loss Estimated blood loss (mL): minimal Specimens/Packing Specimens Removed left 5th partial ray amputation SHIVAM KHANNA DO Aug 10, 2021 09:50
--- NOTE | 2021-08-10 13:55 | OPERATIVE REPORT ---
DATE OF SERVICE: 08/10/2021 PREOPERATIVE DIAGNOSIS: Left fifth toe osteomyelitis. POSTOPERATIVE DIAGNOSIS: Left fifth toe osteomyelitis. PROCEDURE: Left foot block, left 5th partial ray amputation, wound VAC placement 7 x 3.8 cm. SURGEON: Shivam Lion DO ASSISTANTS: Eddie Dong to assist in retraction, dissection, and wound VAC placement. ANESTHESIA: General. ESTIMATED BLOOD LOSS: Minimal. COMPLICATIONS: None. SPECIMENS: Left 5th partial ray amputation. INDICATIONS: The patient is a 66-year-old female with left fifth toe osteomyelitis. She understands risks and benefits of procedure and wishes to proceed. She was given alternative options and not wanting to go with conservative measures and would like to proceed with amputation. The patient consent was signed in the chart. DESCRIPTION OF PROCEDURE: The patient was taken to the operating suite. She was prepped and draped in sterile fashion. A timeout was performed. The left foot block was performed injecting local anesthetic medial and lateral posterior to the tibia fibula structures and then fanned over the dorsal aspect of the foot. Once anesthetic effect took place, then circumferential incision was made around the left fifth toe incorporating a chronic ulceration was present on the dorsal aspect then using cautery to dissect down through the skin and subcutaneous tissues. Getting back onto the left fifth metatarsal, a saw was then used to amputate and the distal portion of the metatarsal and toe were removed. Hemostasis was achieved. Copious amount of irrigation was used. The rasp was used to file the cut edge. Prior to irrigation, cultures of the bone was obtained. The wound VAC was then applied, which wound measurements were 7 x 3.8 cm. White foam was used over the bone and then black foam over this and then this was then bridged to the dorsal aspect of the foot. Once the wound VAC was placed, the patient was taken to recovery room in stable condition. Job ID: [id number] DocumentID: [id number] Dictated Date: 08/10/2021 09:54:22 Medical Accounts Receivable Specialist Date: 08/10/2021 13:54:53 Dictated By: SHIVAM LION DO [facility] HOSPITALManpreet
--- NOTE | 2021-08-15 09:14 | Anesthesia-General Post-Op ---
General Significant Intra-Op Events Notes addendum 08-10-21 at 1030 Patient Condition Mental Status/LOC: Same as Preop Cardiovascular: Satisfactory Nausea/Vomiting: Absent Respiratory: Satisfactory Pain: Controlled Complications: Absent Post Op Complications Complications None Follow Up Care/Instructions Patient Instructions None needed. Anesthesia/Patient Condition Patient Condition Patient is doing well, no complaints, stable vital signs, no apparent adverse anesthesia problems. No complications reported per nursing. FABIANO CHANG CRNA Aug 15, 2021 09:14
== END 2021-08-10 11:30 | disposition home or self-care (01) ==
LOC: SDC 07:02
PROVIDERS: ATTEND Surgery
DX: E11.69 Type 2 diabetes mellitus with other specified complication (principal); M86.9 Osteomyelitis, unspecified; E11.621 Type 2 diabetes mellitus with foot ulcer; L97.529 Non-pressure chronic ulcer of other part of left foot with unspecified severity; I25.10 Atherosclerotic heart disease of native coronary artery without angina pectoris; R94.39 Abnormal result of other cardiovascular function study; I48.0 Paroxysmal atrial fibrillation; I10 Essential (primary) hypertension; E78.2 Mixed hyperlipidemia; D64.9 Anemia, unspecified; I65.23 Occlusion and stenosis of bilateral carotid arteries; Z79.01 Long term (current) use of anticoagulants; Z87.891 Personal history of nicotine dependence; Z87.820 Personal history of traumatic brain injury; Z79.899 Other long term (current) drug therapy
CPT/HCPCS: 82947; 87070; 87075; 87081; 87205